=== PATIENT | female | born 1960 | race Caucasian/White ===

== ENCOUNTER 2017-03-03 09:47 | Outpatient (CLI) ==
[2015-11-19 19:34] VITALS: BMI 27.4
[2017-03-03 10:24] LABS: CREATININE 0.66 mg/dL (0.60-1.30)
--- NOTE | 2017-03-03 11:59 | CT ---
EXAM: CT of the abdomen and pelvis without and with IV contrast. HISTORY: Hematuria COMPARISON: 04/07/2015 TECHNIQUE: CT of the abdomen and pelvis without and with IV contrast. Oral contrast was also admini stered. 3-D and MIP reformats were obtained. FINDINGS: No renal, ureteral or bladder calculi are identified. Numerous phleboliths are seen. Both kidneys enhance normally. No renal masses are visualized. No hydronephrosis is seen. A porti on of the proximal right and distal left ureter do not opacify well with contrast, likely secondary to timing. No gross ureteral wall thickening or dilation is visualized. No bladder mass is seen. The liver enhances normally. Gallbladder has been removed. The spleen, adrenals, kidneys and pancr eas enhance normally. The diverticulum of the second portion of the duodenum. No abnormal small bowel dilation is seen. Th e colon is within normal limits. The appendix is not identified. The uterus has been removed. No free air or free fluid is seen. No lymphadenopathy is identified. There is atherosclerotic plaque of the aorta and its branches. There is moderate to severe L5-S1 de generative disc disease with vacuum phenomenon. IMPRESSION: No evidence of urolithiasis. No bladder or renal masses identified. No acute intra-abdominal findings. Status post cholecystectomy and hysterectomy. Atherosclerosis.
== END 2017-03-03 09:48 | disposition home or self-care (01) ==
LOC: RAD 09:47
PROVIDERS: ATTEND Urology
DX: R31.1 Benign essential microscopic hematuria (principal)
CPT/HCPCS: 36415; 82565

== ENCOUNTER 2017-09-24 11:37 | Outpatient (CLI) ==
[2015-11-19 19:34] VITALS: BMI 27.4
== END 2017-09-24 11:38 | disposition home or self-care (01) ==
LOC: RAD 11:37
PROVIDERS: ATTEND Family Medicine
DX: Z12.31 Encounter for screening mammogram for malignant neoplasm of breast (principal)
CPT/HCPCS: 77067

== ENCOUNTER 2018-02-09 10:19 | Emergency (ER) ==
[2018-02-09 10:24] VITALS: TEMP 98.6; BMI 41.1
[2018-02-09] MEDS ORDERED: ASPIRIN CHEWABLE PO STA (10:44)
--- NOTE | 2018-02-09 11:16 | DI ---
EXAM: CHEST FRONTAL VIEW HISTORY: Chest pain. COMPARISON: 10/11/2016 FINDINGS: Heart size and mediastinum remain within normal limits. Lungs are free of infiltrate. No consolidation or pleural fluid. There is no pneumothorax or acute bony finding. IMPRESSION: Findings within normal limits.
--- NOTE | 2018-02-09 12:03 | ED.PDOC ---
General ED Provider: Dr. LISA ARELLANO Chief Complaint: Chest Pain Stated Complaint: chest pain Time Seen by Physician: 10:19 (chest pain epigastric/ central chest x 4 days) Mode of Arrival: Walk-In Information Source: Patient Exam Limitations: No limitations Primary Care Provider: DAJA AGUERO Nursing and Triage Documentation Reviewed and Agree: Yes Reviewed sepsis parameters & appropriate labs ordered?: Yes System Inflammatory Response Syndrome: Not Applicable Sepsis Protocol: For patient's 13 years and over: Temp is 96.8 and below OR 101 and greater Pulse >90 BPM Resp >20/minute Acutely Altered Mental Status Are patient's symptoms suggestive of a new infection, such as: -Pneumonia -Skin, Soft Tissue -Endocarditis -UTI -Bone, Joint Infection -Implantable Device -Acute Abdominal Infection -Wound Infection -Meningitis -Blood Stream Catheter Infection -Unknown System Inflammatory Response Syndrome: Not Applicable Cardiovascular Complaint Exam - Chest Pain Complaint/Exam Onset: Gradual Duration: 4 days Symptoms Are: Still present Timing: Intermittent Length of Chest Pain Episodes: 30 min Initial Severity: Moderate Current Severity: Mild Location: Reports: Midsternal Pain Radiates: Reports: Neck, Epigastrium. Denies: Back, Right shoulder, Left arm, Right arm Character: Reports: Aching Aggravating: Reports: Exertion, Movement. Denies: Deep breaths Alleviating: Reports: Rest (tool 1 asprin 81 mg) Associated Signs and Symptoms: Reports: Cough. Denies: Diaphoresis, Nausea, Vomiting, Fever, Palpitations, Hemoptysis, Back pain, Abdominal pain, Dizziness , Short of air, Calf pain, Calf swelling Related History: Reports: Similar episode, Current Kj Inhibitors Related Surgical History: Reports: Cardiac Cath, PTCA/Stent History of Healthcare-Acquired Pneumonia: Reports: No AMI/ACS Risk Factors: Reports: Sedentary, Diabetes, Obesity, Hypertension, Smoking, Dyslipidemia TAD Risk Factors: Reports: Hypertension, Smoking Pulmonary Embolism Risk Factors: Reports: None Prior Care for this Complaint: Yes (stent collapsed in the prior case ) Recent Stress Test: No Recent Echo/LV Function: No JVD Present: No Subcutaneous Emphysema Present: No Diminshed Breath Sounds: No Reproducible Chest Wall Pain: No Bilateral Pulses Present: No If Risk Factors for AMI/ACS Consider: EKG, Cardiac Enzymes, Aspirin Differential Diagnoses: Acute IA, ACS, Stable Angina, Lower Resp. Infection Quality Indicators For Acute IA or Cardiac Chest Pain: EKG in 10min. Quality Indicator For Non-Traumatic Chest Pain/Syncope: EKG Performed Patient Advised to Stop Smoking: Yes Review of Systems - Review Of Systems Constitutional: Reports: Malaise Eyes: Reports: No symptoms Ears, Nose, Mouth, Throat: Reports: No symptoms Respiratory: Reports: Cough Cardiac: Reports: Chest pain GI: Reports: No symptoms : Reports: No symptoms Musculoskeletal: Reports: No symptoms Skin: Reports: No symptoms Neurological: Reports: No symptoms Endocrine: Reports: No symptoms Hematologic/Lymphatic: Reports: No symptoms All Other Systems: Reviewed and Negative Past Medical History - Past Medical History Previously Healthy: Yes Endocrine: Reports: DM 2, Hypothyroid, Dyslipidemia Cardiovascular: Reports: CAD, Hypertension Respiratory: Reports: COPD Hematological: Reports: None Gastrointestinal: Reports: Liver Genitourinary: Reports: None Neuro/Psych: Reports: Anxiety, Depression Musculoskeletal: Reports: None Cancer: Reports: None Last Menstrual Period: NONE - Surgical History General Surgical History: Reports: Hysterectomy, Cholecystectomy - Family History Family History: Reports: Unknown - Social History Smoking Status: Current some day smoker, Light tobacco smoker Hx Substance Use: No Alcohol Screening: None Physical Exam - Physical Exam Appearance: Well-appearing Eyes: BABAK, EOMI, Conjunctiva clear ENT: Ears normal, Nose normal, Oropharynx normal Respiratory: Rhonchi Cardiovascular: RRR, Pulses normal, No rub, No murmur GI/: Soft, Nontender, No masses, Bowel sounds normal, No Organomegaly Musculoskeletal: Normal strength, ROM intact, No edema, No calf tenderness Skin: Warm, Dry, Normal color Neurological: Sensation intact, Motor intact, Reflexes intact, Cranial nerves intact, Alert, Oriented Psychiatric: Affect appropriate, Mood appropriate Interpretation - Radiology Interpretation Radiology Interpretation By: Radiologist Radiology Results: Negative Exam Interpreted: 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0 L Lymphocytes % (Manual) 45.0 Monocytes % (Manual) 6.0 Eosinophils % (Manual) 3.0 Anisocytosis Not present PT 9.6 INR 0.96 APTT 24.7 Sodium 138 Potassium 4.4 Chloride 103 Carbon Dioxide 22 Anion Gap 17.4 BUN 15 Creatinine 0.68 Estimated GFR (MDRD) 89.00 BUN/Creatinine Ratio 22.05 Glucose 151 H Calcium 9.4 Total Bilirubin 0.4 AST 18 ALT 25 Alkaline Phosphatase 103 H Total Creatine Kinase 75 Troponin I 0.0140 Total Protein 6.8 Albumin 3.4 Globulin 3.4 Albumin/Globulin Ratio 1.00 Orders Category Date Time Status EKG-(ED ONLY) Stat CARDIO 02/09/18 10:44 Completed EKG-(ED ONLY) Stat CARDIO 02/09/18 11:50 Completed CBC W/ AUTO DIFF Stat LAB 02/09/18 10:40 Completed COMPREHENSIVE METABOLIC PANEL Stat LAB 02/09/18 10:40 Completed CREATINE KINASE Stat LAB 02/09/18 10:40 Completed MANUAL DIFFERENTIAL Stat LAB 02/09/18 10:40 Completed PARTIAL THROMBOPLASTIN TIME Stat LAB 02/09/18 10:40 Completed PT WITH INR Stat LAB 02/09/18 10:40 Completed TROPONIN I Stat LAB 02/09/18 10:40 Completed 0.9 % Sodium Chloride [Saline Flush] MEDS 02/09/18 10:43 Active 1 syr IVF PRN PRN Aspirin [Aspirin Chewable] MEDS 02/09/18 10:44 Discontinued 243 mg PO ONCE STA CHEST, 1V AP ONLY Stat RADS 02/09/18 10:43 Completed Medications Generic Name Dose Route Start Last Admin Trade Name Freq PRN Reason Stop Dose Admin Sodium Chloride 1 syr 02/09/18 10:43 02/09/18 10:50 Saline Flush IVF 1 syr PRN PRN Administration To flush IV Discontinued Medications Generic Name Dose Route Start Last Admin Trade Name Freq PRN Reason Stop Dose Admin Aspirin 243 mg 02/09/18 10:44 02/09/18 10:51 Aspirin Chewable PO 02/09/18 10:45 243 mg ONCE STA Administration Vital Signs: Temp Pulse Resp BP Pulse Ox 02/09/18 10:19 98.6 F 86 18 127/81 92 L AIDE Risk Score AIDE Risk Score: Risk Score Odds of by 30D 0 0.1 (0.1-0.2) 1 0.3 (0.2-0.3) 2 0.4 (0.3-0.5) 3 0.7 (0.6-0.9) 4 1.2 (1.0-1.5) 5 2.2 (1.9-2.6) 6 3.0 (2.5-3.6) 7 4.8 (3.8-6.1) Departure - Departure Time of Disposition: 12:25 Disposition: TSF SHORT-TRM HOSP Discharge Problem: Chest pain Instructions: Chest Pain (ED) Condition: Good Pt referred to PMD for follow-up: Yes IPMP verified?: No Additional Instructions: Please call your Family Physician as soon as possible to schedule a follow-up appointment. Allergies/Adverse Reactions: Allergies amitriptyline Adverse Reaction (Verified 02/09/18 10:25) codeine Adverse Reaction (Verified 02/09/18 10:25) Iodinated Contrast- Oral and IV Dye Adverse Reaction (Verified 02/09/18 10:25) nortriptyline Adverse Reaction (Verified 02/09/18 10:25) Home Medications: Ambulatory Orders Aspirin [Aspirin Chewable] 81 mg PO DAILYWM 10/16/14 Diazepam [Valium] 10 mg PO TID 10/16/14 Furosemide [Lasix Tab] 40 mg PO DAILY 10/16/14 Hydrocodone/Acetaminophen [Lortab 10-325 mg Tablet] 10 mg PO Q4HR 10/16/14 Potassium Chloride 10 meq PO BID 10/16/14 Trazodone HCl 150 mg PO DAILY 10/16/14 Estrogens, Conjugated [Premarin] 1.25 mg PO DAILY 04/07/15 Spironolactone 50 mg PO DAILY 04/07/15 Tizanidine HCl 2 mg PO TID 04/07/15 Albuterol Sulfate [Proair Hfa] 2 puff IH Q6H 08/21/15 Aripiprazole [Abilify] 15 mg PO DAILY 08/21/15 Budesonide/Formoterol Fumarate [Symbicort 160-4.5 Mcg Inhaler] 1 puff IH BID 10/24 Atorvastatin Calcium 80 mg PO DAILY 02/09/18 Insulin Glargine,Hum.rec.anlog [Lantus] 50 unit SUBCUT BEDTIME 02/09/18 Insulin Lispro [Humalog] See Protocol SQ ACHS 02/09/18 Linaclotide [Linzess] 145 mcg PO PRN PRN 02/09/18 Lisinopril [Zestril] 10 mg PO DAILY 02/09/18 Loratadine [Claritin] 10 mg PO DAILY 02/09/18 Modafinil [Provigil] 100 mg PO DAILY 02/09/18 Nitroglycerin [Nitrostat] 0.4 mg SL Q5MIN X 3 DOSES PRN 02/09/18 [place]-3 Acid Ethyl Esters [Lovaza] 1 gm PO DAILY 02/09/18 Ranolazine [Ranexa] 500 mg PO BID 02/09/18 Vitamin E 400 unit PO DAILY 02/09/18 Disposition Discussed With: Patient
[2018-02-09] MEDS ORDERED: ZOFRAN 4 MG/2 ML IVP STA (13:09)
[2018-02-09] MEDS ORDERED: SODIUM CHLORIDE 1,000 ML IV STA (13:09)
[2018-02-09 13:48] VITALS: BP 124/68
== END 2018-02-09 14:00 | disposition short-term general hospital (02) ==
LOC: ED 10:19
DX: R07.9 Chest pain, unspecified (principal); I10 Essential (primary) hypertension; R05 Cough; E11.9 Type 2 diabetes mellitus without complications; E03.9 Hypothyroidism, unspecified; E78.5 Hyperlipidemia, unspecified; I25.10 Atherosclerotic heart disease of native coronary artery without angina pectoris; F17.210 Nicotine dependence, cigarettes, uncomplicated; J44.9 Chronic obstructive pulmonary disease, unspecified; Z79.899 Other long term (current) drug therapy
CPT/HCPCS: 36415; 80053; 82550; 84484; 85007; 85025; 85610; 85730; 93005; 93010; 96361; 96374; 99285

== ENCOUNTER 2018-02-09 14:02 | Outpatient (CLI) ==
[2018-02-09 10:24] VITALS: BMI 41.1
== END 2018-02-09 14:03 | disposition short-term general hospital (02) ==
LOC: AMBL 14:02
PROVIDERS: ATTEND Internal Medicine
DX: R07.9 Chest pain, unspecified (principal); R11.0 Nausea

== ENCOUNTER 2021-07-16 12:14 | Observation (INO) ==
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
[2021-07-16 12:34] LABS: BASOPHILS % (AUTO) 0.4 % (0.0-3.0); EOSINOPHILS # (AUTO) 0.1 K/ul (0.0-0.7); EOSINOPHILS % (AUTO) 1.3 % (0.0-7.0); HEMATOCRIT 40.5 % (37.0-47.0); HEMOGLOBIN 13.3 g/dl (12.0-16.0); IMMATURE GRANULOCYTE % (AUTO) 0.1 % (0.0-5.0); LYMPHOCYTES # (AUTO) 2.8 K/uL (0.60-3.4); LYMPHOCYTES % (AUTO) 39.9 (10.0-50.0); MEAN CORPUSCULAR HEMOGLOBIN 32.1 pg (27.0-31.0); MEAN CORPUSCULAR HGB CONC 32.8 (31.8-35.4); MEAN CORPUSCULAR VOLUME 97.8 fl (81.0-99.0); MONOCYTES # (AUTO) 0.5 K/uL (0.4-2.0); MONOCYTES % (AUTO) 7.5 (0-10); NEUTROPHILS # (AUTO) 3.6 K/ul (2.0-6.9); NEUTROPHILS % (AUTO) 50.8 % (42.2-75.2); PLATELET COUNT 226 10^3/uL (140-440); RDW COEFFICIENT OF VARIATION 13.1 % (11.6-14.8); RED BLOOD COUNT 4.14 10^6/ul (4.20-5.40); WHITE BLOOD COUNT 7.04 K/ul (4.6-10.2)
[2021-07-16 12:47] LABS: ALANINE AMINOTRANSFERASE 16.3 U/L (0-35); ALKALINE PHOSPHATASE 59.6 U/L (53-141); ASPARTATE AMINO TRANSFERASE 25.7 U/L (14-36); BLOOD UREA NITROGEN 16.1 mg/dL (7-17); CALCIUM 8.95 mg/dL (8.4-10.2); CARBON DIOXIDE 25.9 mmol/L (22-30.0); CHLORIDE 103.8 mmol/L (98-107); CREATINE KINASE 40.2 U/L (30-135); CREATININE 0.53 mg/dL (0.60-1.30); GLUCOSE 179.8 mg/dL (74-106); POTASSIUM 3.69 mmol/L (3.5-5.1); SODIUM 136.4 mmol/L (134.5-145); TOTAL PROTEIN 6.38 g/dL (6.3-8.2)
--- NOTE | 2021-07-16 12:55 | DI ---
EXAM: Chest, single view COMPARISON: Chest radiograph 02/26/2021. HISTORY: Cough and chest pain. FINDINGS: The cardiomediastinal silhouette is stable in appearance. No focal airspace consolidation , pleural effusion or pneumothorax. IMPRESSION: No acute cardiopulmonary disease.
[2021-07-16 13:01] LABS: TROPONIN I < 0.012 ng/ml (0.0000-0.120)
[2021-07-16 13:43] LABS: BORDETELLA PARAPERTUSSIS (PCR) NOT DETECTED (NOT DETECT); BORDETELLA PERTUSSIS (PCR) NOT DETECTED (NOT DETECT); CHLAMYDIA PNEUMONIAE (PCR) NOT DETECTED (NOT DETECT); CORONAVIRUS 229E (PCR) NOT DETECTED (NOT DETECT); CORONAVIRUS HKU1 (PCR) NOT DETECTED (NOT DETECT); CORONAVIRUS NL63 (PCR) NOT DETECTED (NOT DETECT); CORONAVIRUS OC43 (PCR) NOT DETECTED (NOT DETECT); HUMAN METAPNEUMOVIRUS (PCR) NOT DETECTED (NOT DETECT); HUMAN RHINOVIRUS/ENTEROV (PCR) NOT DETECTED (NOT DETECT); INFLUENZA B (PCR) NOT DETECTED (NOT DETECT); MYCOPLASMA PNEUMONIAE (PCR) NOT DETECTED (NOT DETECT); PARAINFLUENZA VIRUS 1 (PCR) NOT DETECTED (NOT DETECT); PARAINFLUENZA VIRUS 2 (PCR) NOT DETECTED (NOT DETECT); PARAINFLUENZA VIRUS 3 (PCR) NOT DETECTED (NOT DETECT); PARAINFLUENZA VIRUS 4 (PCR) NOT DETECTED (NOT DETECT); RESPIRATORY SYNCYTIAL V (PCR) NOT DETECTED (NOT DETECT)
[2021-07-16 14:39] LABS: ADENOVIRUS (PCR) NOT DETECTED (NOT DETECT)
[2021-07-16 14:42] LABS: SARS_COV_2 (PCR) NOT DETECTED (NOT DETECT)
[2021-07-16] MEDS ORDERED: ATROPINE SULFATE PFS IVP PRN (15:00)
[2021-07-16] MEDS ORDERED: TYLENOL PO PRN (15:00)
[2021-07-16] MEDS ORDERED: NITROSTAT SL PRN (15:00)
[2021-07-16] MEDS ORDERED: NORCO 10-325 PO PRN (15:03)
[2021-07-16] MEDS ORDERED: VALIUM PO PRN (15:03)
[2021-07-16] MEDS ORDERED: PROTONIX PO SCH (15:30)
[2021-07-16] MEDS ORDERED: VENTOLIN HFA (PER PUFF-WITH SPACER) IH SCH (15:30)
[2021-07-16 16:11] VITALS: BMI 38.3
[2021-07-16 17:18] LABS: CHOLESTEROL 142.2 mg/dL (0-200); HDL CHOLESTEROL 47.9 mg/dL (35-80); TRIGLYCERIDES 281.7 mg/dL (0-150)
[2021-07-16 17:19] LABS: BILIRUBIN,URINE Negative (NEGATIVE); CLARITY,URINE Clear (CLEAR); COLOR,URINE Yellow (YELLOW); GLUCOSE, URINE (UA) Negative (NEGATIVE); KETONES,URINE Negative (NEGATIVE); LEUKOCYTE ESTERASE ,URINE Negative (NEGATIVE); NITRITE,URINE Negative (NEGATIVE); PH,URINE 6.5 (5-9); PROTEIN,URINE Negative (NEGATIVE); URINE, BLOOD Trace-intact (NEGATIVE); UROBILINOGEN,URINE 0.2 (0.2)
[2021-07-16 17:26] LABS: URINE RBC, MICROSCOPIC 0-2 (0-2)
[2021-07-16] MEDS: NORCO 10-325 PO PRN (17:35)
[2021-07-16] MEDS: COZAAR PO SCH (17:41)
[2021-07-16] MEDS: VENTOLIN HFA (PER PUFF-WITH SPACER) IH SCH ×2 (17:45→23:50)
[2021-07-16 17:50] LABS: THYROID STIMULATING HORMONE 0.37 uIU/L (0.465-4.68)
[2021-07-16] MEDS: NEURONTIN PO SCH (20:18)
[2021-07-16] MEDS: RANEXA PO SCH (20:18)
[2021-07-16 20:47] LABS: CREATINE KINASE 37.1 U/L (30-135)
[2021-07-16] MEDS ORDERED: DESYREL PO PRN (21:00)
[2021-07-16 21:01] LABS: TROPONIN I < 0.012 ng/ml (0.0000-0.120)
[2021-07-17] MEDS: NORCO 10-325 PO PRN ×2 (00:03→09:13)
[2021-07-17 04:34] LABS: BASOPHILS # (AUTO) 0.1 K/uL (0-0.2); BASOPHILS % (AUTO) 0.8 % (0.0-3.0); EOSINOPHILS # (AUTO) 0.2 K/ul (0.0-0.7); EOSINOPHILS % (AUTO) 2.3 % (0.0-7.0); HEMATOCRIT 39.9 % (37.0-47.0); HEMOGLOBIN 12.9 g/dl (12.0-16.0); IMMATURE GRANULOCYTE % (AUTO) 0.2 % (0.0-5.0); LYMPHOCYTES # (AUTO) 3.3 K/uL (0.60-3.4); MEAN CORPUSCULAR HGB CONC 32.3 (31.8-35.4); MONOCYTES # (AUTO) 0.6 K/uL (0.4-2.0); MONOCYTES % (AUTO) 9.2 (0-10); NEUTROPHILS # (AUTO) 2.5 K/ul (2.0-6.9); NEUTROPHILS % (AUTO) 37.5 % (42.2-75.2); PLATELET COUNT 218 10^3/uL (140-440); RDW COEFFICIENT OF VARIATION 13.2 % (11.6-14.8); RED BLOOD COUNT 4.03 10^6/ul (4.20-5.40); WHITE BLOOD COUNT 6.54 K/ul (4.6-10.2)
[2021-07-17 04:45] LABS: ALANINE AMINOTRANSFERASE 14.9 U/L (0-35); ALBUMIN 3.71 g/dL (3.5-5.0); ALKALINE PHOSPHATASE 55.3 U/L (53-141); BILIRUBIN,TOTAL 0.33 mg/dL (0.2-1.3); BLOOD UREA NITROGEN 15.4 mg/dL (7-17); CALCIUM 8.88 mg/dL (8.4-10.2); CARBON DIOXIDE 31.6 mmol/L (22-30.0); CHLORIDE 103.9 mmol/L (98-107); CREATINE KINASE 31.9 U/L (30-135); CREATININE 0.62 mg/dL (0.60-1.30); GLUCOSE 110.6 mg/dL (74-106); POTASSIUM 4.16 mmol/L (3.5-5.1); SODIUM 139.7 mmol/L (134.5-145); TOTAL PROTEIN 5.98 g/dL (6.3-8.2)
[2021-07-17] MEDS: VENTOLIN HFA (PER PUFF-WITH SPACER) IH SCH ×2 (04:50→11:17)
[2021-07-17 04:58] LABS: TROPONIN I < 0.012 ng/ml (0.0000-0.120)
[2021-07-17] MEDS ORDERED: PROTONIX PO SCH (08:00)
[2021-07-17] MEDS ORDERED: ASPIRIN EC PO SCH (08:30)
[2021-07-17] MEDS ORDERED: PLAVIX PO SCH (09:00)
[2021-07-17] MEDS ORDERED: PROZAC PO SCH (09:00)
[2021-07-17] MEDS ORDERED: LIPITOR PO SCH (09:00)
[2021-07-17] MEDS ORDERED: LANTUS SUBCUT SCH (09:00)
[2021-07-17] MEDS: RANEXA PO SCH (09:02)
[2021-07-17] MEDS: COZAAR PO SCH (09:04)
[2021-07-17] MEDS: NEURONTIN PO SCH ×2 (09:05→14:53)
[2021-07-17] MEDS ORDERED: PHENERGAN 25 MG/ML VIAL 25 MG in SODIUM CHLORIDE 50 ML IV PRN (10:52)
[2021-07-17] MEDS ORDERED: ABILIFY PO SCH (11:00)
[2021-07-17] MEDS ORDERED: DOBUTAMINE 500 MG-D5W 250 ML 500 MG/250 ML BAG IV SCH (11:00)
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
[2021-07-17 14:14] VITALS: BP 112/70; TEMP 97.4
--- NOTE | 2021-07-19 09:22 | ECHO2D ---
Date of Exam: 07/18/2021 Ordering Physician: [facility] Room #: 103 Reason for Echo: CHEST PAIN, HTN, DM, STENTS X2 M-Mode Normal Adult Results LV Dimensions Normal Adult Results AoV Opening excursions >1.6 >1.6 LVEDD-base- 3.5-5.8 4.2 Ao root dimensions 2.0-3.7 3.6 LVESD-base- 3.1-4.6 L. Atrium dimensions 1.9-3.8 3.8 Post. Wall thickness 0.8-1.1 1.0 IV septum (thickness) 0.7-1.2 1.1 Post. Wall excursion 0.72-1.3 NORMAL Septal motion NORMAL Systolic motion R. Ventricular cavity 1.5-2.0 NORMAL LVEF 60% 58% Paradoxical septal wall motion NORMAL 2-D : 2-D M Mode Echocardiogram was performed using apical four chamber and left parasternal long and short axis views. Mitral, tricuspid and aortic valves appear to be normal. Contractility of the left ventricle seems to be normal, so is the cavity size. Left atrial cavity size and aortic root appear to be normal. There is no pericardial effusion. There is no thrombus noted in the left ventricle or left atrial cavity. M-MODE: MV: NORMAL AV: NORMAL TV: NORMAL PV: CHAMBER SIZE: NORMAL WALL MOTION: NORMAL PERICARDIUM: NORMAL INTERPRETATION: 1. NORMAL 2 "D" "M" MODE ECHO MTDD
--- NOTE | 2021-07-19 09:35 | DOBSTECHO ---
Date of Test: 07/17/2021 Ordering Physician: HOSPITALIST/KAI AGUERO Smoking History: 40 PK/YRS Reason for Examination: CHEST PAIN, DM, HTN, STENTS X 2 Current Medications: LIRAGLUTIDE, TRAZODONE, TIZANIDINE, RANEXA, PANTOPRAZOLE, LOSARTAN, LINACLOTIDE, LISPRO, GABAPENTIN, FLUOXETINE, FENOFIBRATE, DIAZEPAM, PREMARIN, CLOPIDOGREL, ATORVASTATIN, ASA, ARIPIPRAZOLE, PROAIR Height: 62" Weight: 208 LBS Target Heart Rate: 136/160 S-T Segment Stage Time HR BPM BP MMHG Rhythm +/- Elevation Depression Symptoms Control Sitting 72 102/54 SR X NONE Dobutamine 250mg/D5W 5mcg/KG/mn 10mcg/KG/mn 3" 78 110/56 SR X NONE 15mcg/KG/mn 2" 76 114/56 SR X NONE 20mcg/KG/mn 2" 75 112/56 SR X NONE 25mcg/KG/mn 2" 82 SR X .25 ATROPINE 30mcg/KG/mn 2" 102 186/54 SR X 35mcg/KG/mn 2" 114 188/60 SR X NONE 40mcg/KG/mn 1:49 125 SR X NONE 4" MIN POST INFUSION 112 168/70 SR X NONE 10" MIN POST INFUSION 98 118/60 SR X NONE DURATION OF INFUSION 14:49 MAXIMUM HEART RATE REACHED 125 BPM Interpretation: 1. NO EVIDENCE OF ISCHEMIA BY ST-T WAVE CHANGES FROM RESTING HEART RATE 75 BPM TO 125 BPM 2. NO CHEST PAIN OR DISCOMFORT 3. FEW ISOLATED PAC'S WITH DOBUTAMINE INFUSION NORMAL LEFT VENTRICLE CONTRACTILITY RESTING AND POST EXERCISE MTDD
--- NOTE | 2021-07-19 13:36 | ECHOSTRESS ---
Date of Exam: 07/17/2021 Ordering Physician: [facility] Reason for Echo: CHEST PAIN, HTN, DM, STENTS X 2, DOBUTAMINE STRESS TEST--NO ISCHEMIA M-Mode Normal Adult Results LV Dimensions Normal Adult Results AoV Opening excursions >1.6 LVEDD-base- 3.5-5.8 Ao root dimensions 2.0-3.7 LVESD-base- 3.1-4.6 L. Atrium dimensions 1.9-3.8 Post. Wall thickness 0.8-1.1 IV septum (thickness) 0.7-1.2 Post. Wall excursion 0.72-1.3 Septal motion Systolic motion R. Ventricular cavity 1.5-2.0 LVEF 60% Paradoxical septal wall motion 2-D: NORMAL LEFT VENTRICLE CONTRACTILITY--RESTING AND WITH DOBUTAMINE INFUSION M-MODE: MV: AV: TV: PV: CHAMBER SIZE: WALL MOTION: NORMAL LEFT VENTRICLE CONTRACTILITY--RESTING AND WITH DOBUTAMINE INFUSION PERICARDIUM: INTERPRETATION: 1. NORMAL LEFT VENTRICLE CONTRACTILITY--RESTING AND WITH DOBUTAMINE INFUSION MTDD
--- NOTE | 2021-07-20 11:49 | CONS ---
DATE OF SERVICE: 07/16/2021 REASON FOR CONSULTATION/HISTORY OF PRESENT ILLNESS: 60 year old white female seen on consultation because of chest pain. The patient was seen and examined with the Nurse Practitioner. The patient's chest pain is described as sharp shooting pain through the center of the chest 4-5 days duration. No exertional chest discomfort, no associated shortness of breath or sweating with it. He has medical history of having cardiac stent twice. The first one in [place]. According to the patient is collapsed and she had to have another one at [place]. REVIEW OF SYSTEMS: CONSTITUTIONAL: No night sweats. No fatigue, malaise, lethargy. No fever or chills. HEENT: Eyes: No visual changes. No eye pain. No eye discharge. ENT: No runny nose. No epistaxis. No sinus pain. No sore throat. No odynophagia. No ear pain. No congestion. RESPIRATORY: No cough, no congestion. No hemoptysis. CARDIOVASCULAR: No angina symptoms. No CHF symptoms. No atypical chest pain for CAD. No palpitations. No shortness of breath. GASTROINTESTINAL: No abdominal pain. No nausea or vomiting. No diarrhea or constipation. No hematemesis. No hematochezia. GENITOURINARY: No urgency. No frequency. No dysuria. No hematuria. No obstructive symptoms. No discharge. No pain. No significant abnormal bleeding. MUSCULOSKELETAL: No musculoskeletal pain. No joint swelling. No arthritis. NEUROLOGICAL: No headache. No neck pain. No syncope. No seizures. No dizziness. PSYCHIATRIC: Not anxious. No depression. No suicidal thoughts. No homicidal thoughts. SKIN: No rash. No lesions. No wounds. ENDOCRINE: No unexplained weight loss. No weight gain. HEMATOLOGIC/LYMPHATIC: No anemia. No purpura. No petechiae. No prolonged or excessive bleeding. No palpable lymph nodes. MEDICATIONS: Albuterol Atorvastatin Clopidogrel Losartan and a lot of other anxiety medications. ALLERGIES: Amitriptyline Amlodipine Iodinated contrast Nortriptyline PERSONAL/FAMILY/SOCIAL HISTORY : The patient is living by herself. Heavy smoker. PAST MEDICAL/PAST SURGICAL HISTORY: Diabetes Mellitus Morbid obesity Hypertension Dyslipidemia Depression with anxiety syndrome PHYSICAL EXAMINATION: GENERAL: The patient is oriented to time, place and person. VITAL SIGNS: Temperature 97.8, pulse 76, respiratory rate 18, blood pressure 112/65 and pulse ox 94% on room air. HEENT: Head normocephalic, atraumatic. Eyes: Extraocular muscles are intact. Pupils are equal, round and reactive to light and accommodation. Ears: No lesions. Nose appeared normal. Throat: No exudate or erythema. NECK: Supple. No JVD, no carotid bruit. No lymphadenopathy or thyromegaly. LUNGS: Clear to auscultation. Percussion note normal. Chest symmetrical. HEART: S1, S2, no S3. No murmur. No cyanosis or clubbing. No ascites. Pulses: Dorsalis pedis and posterior tibial pulses +1 to +2 bilaterally. ABDOMEN: Soft. Nontender. Bowel sounds active. No CVA tenderness. No mass felt. EXTREMITIES: No edema. Full range of motion of all extremities, equal. NEUROLOGIC: No focal deficit. Cranial nerves II through XII are grossly intact. No headache, no double vision or headache. SKIN: Not dry. Intact. Turgor - normal. LYMPHATIC: No palpable lymph nodes/no lymphedema. MUSCULOSKELETAL: Normal joints with no swelling. Muscle tone is normal. LABS: Hgb 12.9, hct 39, WBC 6,500 normal differential, creatinine 0.6, BUN 15, potassium 4.1. SARS COVID negative. T4 TSH normal. Lipid profile is acceptable. Chest x-ray CHF. EKG sinus rhythm, no acute changes. Cardiac markers negative. The patient had echocardiogram done which showed normal LV contractility, normal valves. Dobutamine stress echo heart rate of 75 to 125 per minute with Dobutamine infusion with atrophin. No ST-T wave change. The patient did not have any chest discomfort or chest pain during the tests or afterwards. LV Contractility remained normal with rest and Dobutamine infusion. ASSESSMENT: 1. Chest pain seems to be fairly atypical. No evidence of acute myocardial event. The patient had some coronary artery disease risk factors with history of coronary artery disease with stents. 2. ASHD discussed and the progression of muscular sclerosis and how to control it discussed with the patient. RECOMMENDATIONS: 1. jail recommendation followup with the notching machine operator at [facility]. 2. Followup with the Primary Care Dr. Obrien at [place] as soon as possible within next week. 3. If chest pain recurs go to the nearest emergency room. 4. BMI is 39, weight loss diet discussed. The patient refuses any bariatric referral. 5. HDL discussed the level should be 100 or less 6. Continue Atorvastatin 20mg PO daily 7. Clopidogrel 8. Losartan 9. Counseling for smoking done. 10. The patient did say that she had some reflux symptoms. Antireflux measures discussed. The patient's case discussed with Dr. Olmos. She was hospitalized today. The patient is practically stable as far as cardiovascular system is concerned. CONDITION: Stable. The patient's consult Level 5. MTDD
--- NOTE | 2021-08-26 20:50 | PCM.DC ---
Final Diagnosis: Medications at Discharge: Ambulatory Orders Medication Instructions Recorded aspirin 81 mg chewable tablet 81 mg PO DAILYWM 10/16/14 conjugated estrogens 1.25 mg 1.25 mg PO DAILY 04/07/15 tablet (Premarin) albuterol sulfate 90 mcg/actuation 2 puff INHALATION Q6H 08/21/15 aerosol inhaler (ProAir HFA) atorvastatin 80 mg tablet 80 mg PO DAILY 02/09/18 linaclotide 145 mcg capsule 145 mcg PO PRN PRN 02/09/18 (Linzess) ranolazine 500 mg tablet,extended 500 mg PO BID 02/09/18 release,12 hr (Ranexa) clopidogrel 75 mg tablet 75 mg PO QDAY 01/08/21 fenofibrate nanocrystallized 145 145 mg PO QDAY 01/08/21 mg tablet gabapentin 300 mg capsule 300 mg PO TID 01/08/21 hydrocodone 10 mg-acetaminophen 1 tab PO .COMPLEX PRN 01/08/21 325 mg tablet insulin glargine 100 unit/mL (3 30 unit SUBCUT QAM ml 01/08/21 mL) subcutaneous pen (Basaglar KwikPen U-100 Insulin) insulin lispro 100 unit/mL 8 unit SUBCUT QDAY PRN ml 01/08/21 subcutaneous pen (Admelog SoloStar U-100 Insulin lispro) liraglutide 0.6 mg/0.1 mL (18 mg/3 1.2 mg SUBCUT BEDTIME ml 01/08/21 mL) subcutaneous pen injector (Victoza 2-Lazaro) losartan 25 mg tablet 25 mg PO QDAY 01/08/21 pantoprazole 40 mg tablet,delayed 40 mg PO QDAY 01/08/21 release tizanidine 2 mg capsule 4 mg PO QHS cap 04/26/21 hydrocodone 10 mg-acetaminophen 1 tab PO 5XD PRN 07/16/21 325 mg tablet naloxone 4 mg/actuation nasal 4 mg INTRANASAL Q2M PRN #2 ea 07/17/21 spray (Narcan) promethazine 25 mg tablet 25 mg PO Q6H PRN 07/17/21 diazepam 5 mg tablet 5 mg PO QDAY PRN #30 tab 07/25/21 aripiprazole 5 mg tablet 5 mg PO QDAY #30 tab 08/22/21 fluoxetine 40 mg capsule 80 mg PO QAM #60 cap 08/22/21 trazodone 100 mg tablet 200 mg PO QHS PRN #60 tab 08/22/21
== END 2021-07-17 17:45 | disposition home or self-care (01) ==
LOC: ED 12:14 → MEDSURG A 12:14
PROVIDERS: ADMIT Internal Medicine Geriatric Medicine; ATTEND Emergency Medicine
DX: F41.9 Anxiety disorder, unspecified; E11.9 Type 2 diabetes mellitus without complications; E88.81 Metabolic syndrome and other insulin resistance; Z95.5 Presence of coronary angioplasty implant and graft; R06.02 Shortness of breath; R05 Cough; I25.10 Atherosclerotic heart disease of native coronary artery without angina pectoris; Z20.822 Contact with and (suspected) exposure to COVID-19; R07.9 Chest pain, unspecified; K21.9 Gastro-esophageal reflux disease without esophagitis; E66.9 Obesity, unspecified; F17.210 Nicotine dependence, cigarettes, uncomplicated

== ENCOUNTER 2022-01-29 16:43 | Observation (INO) ==
[2022-01-29 16:51] VITALS: BMI 40.8
[2022-01-29 18:43] LABS: BASOPHILS % (AUTO) 0.4 % (0.0-3.0); EOSINOPHILS # (AUTO) 0.1 K/ul (0.0-0.7); EOSINOPHILS % (AUTO) 1.8 % (0.0-7.0); HEMATOCRIT 40.9 % (37.0-47.0); HEMOGLOBIN 13.7 g/dl (12.0-16.0); IMMATURE GRANULOCYTE % (AUTO) 0.1 % (0.0-5.0); LYMPHOCYTES # (AUTO) 3.8 K/uL (0.60-3.4); LYMPHOCYTES % (AUTO) 48.1 (10.0-50.0); MEAN CORPUSCULAR HEMOGLOBIN 31.1 pg (27.0-31.0); MEAN CORPUSCULAR HGB CONC 33.5 (31.8-35.4); MEAN CORPUSCULAR VOLUME 92.7 fl (81.0-99.0); MONOCYTES # (AUTO) 0.7 K/uL (0.4-2.0); MONOCYTES % (AUTO) 9.4 (0-10); NEUTROPHILS # (AUTO) 3.2 K/ul (2.0-6.9); NEUTROPHILS % (AUTO) 40.2 % (42.2-75.2); PLATELET COUNT 217 10^3/uL (140-440); RDW COEFFICIENT OF VARIATION 13.2 % (11.6-14.8); RED BLOOD COUNT 4.41 10^6/ul (4.20-5.40)
[2022-01-29] MEDS ORDERED: TORADOL IM STA (18:46)
--- NOTE | 2022-01-29 18:46 | ED.PDOC ---
General <YULI NAVARRO DO - Last Filed: 01/30/22 22:33> ED Provider: Dr. YULI NAVARRO Chief Complaint: Chest Pain Stated Complaint: Lt Shoulder and chest wall pain-onset this morning. No associated SOB, Nausea or diaphoresis. Previous hx of Coronary artery Stent which collapsed and had to be replaced Time Seen by Provider: 01/29/22 19:41 Mode of Arrival: Walk-In Information Source: Patient Exam Limitations: No limitations Primary Care Provider: DAJA AGUERO Nursing and Triage Documentation Reviewed and Agree: Yes Does patient meet sepsis criteria?: No System Inflammatory Response Syndrome: Not Applicable Sepsis Protocol: For patient's 13 years and over: Temp is 96.8 and below OR 101 and greater Pulse >90 BPM Resp >20/minute Acutely Altered Mental Status Are patient's symptoms suggestive of a new infection, such as: -Pneumonia -Skin, Soft Tissue -Endocarditis -UTI -Bone, Joint Infection -Implantable Device -Acute Abdominal Infection -Wound Infection -Meningitis -Blood Stream Catheter Infection -Unknown Cardiovascular Complaint Exam <YULI NAVARRO DO - Last Filed: 01/30/22 22:33> Chest Pain Complaint/Exam Onset: Gradual Duration: 6-8 hrs Symptoms Are: Still present (But lessened) Timing: Intermittent Length of Chest Pain Episodes: 15-20 min Initial Severity: Moderate Current Severity: Mild Location: Reports Diffuse, Left anterior and Left lateral (axilla) Pain Radiates: Reports Left shoulder Character: Reports Aching and Tightness Aggravating: Reports None Alleviating: Reports Rest and Upright position Associated Signs and Symptoms: Denies Diaphoresis, Nausea, Vomiting, Fever, Palpitations, Cough, Hemoptysis, Back pain, Abdominal pain, Dizziness, Short of air, Calf pain or Calf swelling Related History: Reports Similar episode Related Surgical History: Reports None, Cardiac Cath and PTCA/Stent AMI/ACS Risk Factors: Reports None TAD Risk Factors: Reports Smoking Pulmonary Embolism Risk Factors: Reports None Prior Care for this Complaint: Yes Recent Stress Test: No Recent Echo/LV Function: No JVD Present: No Subcutaneous Emphysema Present: No Diminshed Breath Sounds: No Reproducible Chest Wall Pain: No Bilateral Pulses Present: No Unequal Pulses Noted: No If Risk Factors for AMI/ACS Consider: EKG and Cardiac Enzymes Differential Diagnoses: Unstable Angina and Chest Wall Pain Quality Indicators For Acute [place] or Cardiac Chest Pain: EKG in 10min. and ASA if indicated (Took before arriva) Review of Systems <YULI NAVARRO DO - Last Filed: 01/30/22 22:33> Review Of Systems Constitutional: Reports Malaise and Weakness; Denies Chills, Diaphoresis, Fever, Sweats or Loss of appetite Eyes: Reports No symptoms Ears, Nose, Mouth, Throat: Reports No symptoms Respiratory: Reports Cough, Short of air and Wheezing Cardiac: Reports No symptoms GI: Reports No symptoms : Reports No symptoms Musculoskeletal: Reports No symptoms Skin: Reports No symptoms Neurological: Reports Anxiety Endocrine: Reports No symptoms All Other Systems: Reviewed and Negative PFSH <YULI NAVARRO DO - Last Filed: 01/30/22 22:33> Medical History Anxiety Asthma Borderline personality disorder Complicated grief Depression Diabetes Generalized anxiety disorder Hypertension Major depressive disorder, recurrent severe without psychotic features Memory deficit Neurocognitive disorder Panic attacks PTSD (post-traumatic stress disorder) Radicular pain of upper extremity Tobacco dependence Family History Mother Cancer Diabetes Alcoholism FATHER Heart attack Alcoholism BROTHER Brain injury Heart attack BROTHER Overdose BROTHER Hepatitis C BROTHER Hepatitis C SISTER Heart attack Social History Smoking and tobacco status: Current every day smoker Tobacco type: cigarettes Smoking packs per day: 1 Years smoked: 50 Quit status: has quit before Alcohol intake: never Substance use type: does not use Kenzie/sabianist: NONDENOMINATIONAL Special kenzie needs: No Agree to transfusion: Yes Adopted: No Caregiver/support person: No Household members: none Housing: house Marital status: D Lives independently: Yes Number of children: 5 Number of grandchildren: 12 Highest education level completed: 3rd grade Financial difficulty paying for basics: not very hard service: No FCI: No Current occupational status: disabled Current occupational exposures/hazards: No Pets and animals: Yes (dog ) History of recent travel: No Sexually active: No Do you think of yourself as: straight/heterosexual Current gender identity: female Seatbelt use: always Drives intoxicated or rides with intoxicated armor reconnaissance vehicle driver: No Water heater temperature set < 120 degrees: Yes Working smoke detector in home: Yes Fire extinguisher in home: Yes Carbon monoxide detector in home: Yes Firearms in home: No Surgical History H/O heart artery stent Female Reproductive History Menstrual Hx Hysterectomy: Yes Hx Tubal Ligation: No Physical Exam <YULI NAVARRO DO - Last Filed: 01/30/22 22:33> Physical Exam Appearance: Reports Well-appearing and Obese Ill-appearing: Mild Pain Distress: Mild Eyes: Reports BABAK, EOMI, Conjunctiva clear, Conjunctiva pale and Right pupil size (PERL_A) ENT: Reports Ears normal, Oropharynx normal and TMs Occluded Neck: Supple Respiratory: Reports Airway patent, Breath sounds diminished and Wheezes Cardiovascular: Reports RRR and No murmur GI/: Reports Soft, Nontender and No masses Musculoskeletal: Reports Normal strength, ROM intact, No edema, No calf tenderness and Other (tenderness Lt axilla superior shoulder AND ACROMIO CLAVICUAR JOINT) Skin: Reports Warm, Dry and Normal color Neurological: Reports Sensation intact, Motor intact, Reflexes intact, Cranial nerves intact, Alert and Oriented Psychiatric: Reports Affect appropriate and Mood appropriate Interpretation <DO Kaykay NEAL Last Filed: 01/30/22 22:33> Radiology Interpretation Exam Interpreted: Portable CXR ( No acute intrathoracic findings. Minimal left basilar atelectasis or scarring.) EKG Interpretation Time of EKG #1: 17:07 Rate: Normal Rhythm: Sinus Ectopy: None [place]: NL ST Segment: Normal Interpretation: nsr <BAHI DOWLING MD - Last Filed: 01/29/22 19:57> Radiology Interpretation Radiology Interpretation By: Radiologist Radiology Results: Negative Re-Evaluation <YULI NAVARRO DO - Last Filed: 01/30/22 22:33> Re-Evaluation Time of Re-Evaluation: 18:50 Status: Improved Vital Signs Stable: Yes <ABHI DOWLING MD - Last Filed: 01/29/22 19:57> Re-Evaluation Time of Re-Evaluation: 19:54 Status: Improved Vital Signs Stable: Yes (bp 109) Pain Level: mild Appearance: NAD Physician Notification <DO Kaykay NEAL Last Filed: 01/30/22 22:33> Case Discussed Physician Notified: Dr Dowling Time of Notification: 19:10 Comments: Discussed case regarding admission vs possible transfer <ABHI DOWLING MD - Last Filed: 01/29/22 19:57> Critical Care Note Total Critical Care Time (mins): 0 Course <YULI NAVARRO DO - Last Filed: 01/30/22 22:33> Course Hematology/Chemistry: 01/30/22 02:05 01/30/22 02:05 Orders, Labs, Meds: Lab Review 01/29/22 01/29/22 01/29/22 18:35 18:35 19:35 WBC 7.90 RBC 4.41 Hgb 13.7 Hct 40.9 MCV 92.7 MCH 31.1 H MCHC 33.5 RDW Coeff of Wilson 13.2 Plt Count 217 Immature Gran % (Auto) 0.1 Neut % (Auto) 40.2 L Lymph % (Auto) 48.1 [place] % (Auto) 9.4 Eos % (Auto) 1.8 Baso % (Auto) 0.4 Neut # (Auto) 3.2 Lymph # (Auto) 3.8 H [place] # (Auto) 0.7 Eos # (Auto) 0.1 Baso # (Auto) 0.0 Immature Gran # (Auto) 0.0 Sodium 137.0 Potassium 3.89 Chloride 104.5 Carbon Dioxide 28.8 Anion Gap 7.59 BUN 20.2 H Creatinine 0.53 L Estimated GFR (MDRD) 117.00 BUN/Creatinine Ratio 38.11 Glucose 163.6 H Calcium 9.05 Total Bilirubin 0.29 AST 24.6 ALT 15.0 Alkaline Phosphatase 76.4 Troponin I < 0.012 Total Protein 6.40 Albumin 3.83 Globulin 2.57 Albumin/Globulin Ratio 1.49 Adenovirus (PCR) Not detected B. pertussis DNA (PCR) Not detected B.parapertussis DNA PCR Not detected C. pneumoniae DNA (PCR) Not detected Coronavirus OC43 (PCR) Not detected Coronavirus HKU1 (PCR) Not detected Coronavirus 229E (PCR) Not detected Coronavirus NL63 (PCR) Not detected Human Metapneumovir PCR Not detected Influenza Type A (PCR) Not detected Influenza B (RT-PCR) Not detected M. pneumoniae (PCR) Not detected Parainfluenza 1 (PCR) Not detected Parainfluenza 2 (PCR) Not detected Parainfluenza 3 (PCR) Not detected Parainfluenza 4 (PCR) Not detected RSV (PCR) Not detected Entero/Rhino (PCR) Not detected SARS-CoV-2 (PCR) Not detected Orders Category Date Time Status PLACE PATIENT OBSERVATION .TO MEDSURG (MONITORED BED ADMISSION 01/29/22 19:57 Completed ) EKG-(ED ONLY) Stat CARDIO 01/29/22 18:24 Completed EKG-(IP & OP ONLY) Stat CARDIO 01/30/22 06:00 Completed METERED DOSE INHALATION Routine CARDIO 01/29/22 20:07 Active ACTIVITY .Up ad Nicole CARE 01/29/22 19:59 Completed BLOOD GLUCOSE MONITORING (MED/SURG) 0630,1100,1700,2100 CARE 01/29/22 20:00 Completed INTAKE & OUTPUT Q8HR CARE 01/29/22 19:58 Completed NOTIFY PHYSICIAN OF CONSULT ONCE CARE 01/29/22 20:03 Completed TELEMETRY MONITORING TELE CARE 01/29/22 19:58 Completed VITAL SIGNS Q4HR CARE 01/29/22 19:58 Completed CONSULT DOCTOR [PHYSICIAN CONSULTATION] [CONS] Routine CONSULTS 01/29/22 20:02 Ordered CARDIAC DIET DIETARY 01/29/22 Breakfast Completed ED IV/MEDIPORT/POWERPORT .ONCE EMERGENCY 01/29/22 19:41 Completed CBC W/ AUTO DIFF DAILY@0600 LAB 01/30/22 02:05 Completed CBC W/ AUTO DIFF Stat LAB 01/29/22 18:35 Completed CMP [COMPREHENSIVE METABOLIC PANEL] Stat LAB 01/29/22 18:35 Completed CREATINE KINASE Q8H LAB 01/30/22 02:05 Completed CREATINE KINASE Q8H LAB 01/30/22 10:04 Completed RESPIRATORY PANEL 2.1 (PCR) Stat LAB 01/29/22 19:35 Completed TROPONIN I Q8H LAB 01/30/22 02:05 Completed TROPONIN I Q8H LAB 01/30/22 10:04 Completed TROPONIN I Stat LAB 01/29/22 18:35 Completed 0.9 % Sodium Chloride [Saline Flush] MEDS 01/29/22 19:41 Discontinued 1 syr IVF PRN PRN Acetaminophen [Tylenol] MEDS 01/29/22 19:57 Discontinued 650 mg PO Q4H PRN Albuterol Inhaler(with Spacer) [Ventolin Hfa (Per Puff- MEDS 01/29/22 20:05 Discontinued with Spacer)] 2 puff IH Q6H PRN Aripiprazole [Abilify] MEDS 01/29/22 20:30 Discontinued 5 mg PO DAILY Aspirin [Aspirin Chewable] MEDS 01/30/22 08:30 Discontinued 81 mg PO DAILYWM Atorvastatin Calcium [Lipitor] MEDS 01/30/22 09:00 Discontinued 80 mg PO DAILY Clopidogrel Bisulfate [Plavix] MEDS 01/29/22 20:30 Discontinued 75 mg PO DAILY Diazepam [Valium] MEDS 01/29/22 20:05 Discontinued 10 mg PO DAILY PRN Enoxaparin Sodium [Lovenox] MEDS 01/30/22 09:00 Discontinued 40 mg SUBCUT DAILY Fenofibrate [Triglide] MEDS 01/30/22 09:00 Discontinued 160 mg PO DAILY Fluoxetine HCl [Prozac] MEDS 01/30/22 09:00 Discontinued 80 mg PO QAM Gabapentin [Neurontin] MEDS 01/29/22 21:00 Discontinued 300 mg PO TID Insulin Regular, Human [Humulin R] MEDS 01/29/22 19:57 Discontinued See Protocol SUBCUT PRN PRN Ketorolac Tromethamine [Toradol] MEDS 01/29/22 18:46 Discontinued 30 mg IM ONCE STA Losartan Potassium [Cozaar] MEDS 01/29/22 20:30 Discontinued 25 mg PO DAILY Magnesium Oxide [Mag-Ox] MEDS 01/30/22 09:00 Discontinued 400 mg PO DAILY Morphine Sulfate [Morphine 2 mg/ml Vial] MEDS 01/29/22 19:57 Discontinued 2 mg IVP Q4H PRN Ondansetron HCl/Pf [Zofran 4 mg/2 ml] MEDS 01/29/22 19:57 Discontinued 4 mg IVP Q6H PRN Oxycodone HCl [Oxycodone] MEDS 01/29/22 20:05 Discontinued 10 mg PO Q4H PRN Pantoprazole Sodium [Protonix] MEDS 01/30/22 09:00 Discontinued 40 mg PO DAILY Ranolazine [Ranexa] MEDS 01/29/22 21:00 Discontinued 500 mg PO BID Tizanidine HCl [Zanaflex] MEDS 01/29/22 22:01 Discontinued 4 mg PO BEDTIME Trazodone HCl [Desyrel] MEDS 01/30/22 21:00 Discontinued 300 mg PO BEDTIME PRN conjugated estrogens [Premarin] MEDS 01/30/22 09:00 Discontinued 1.25 mg PO DAILY insulin lispro [Admelog SoloStar U-100 Insulin] MEDS 01/29/22 21:00 Discontinued 10 unit SUBCUT TID liraglutide [Victoza 2-Lazaro] MEDS 01/29/22 21:00 Discontinued 1.2 mg SUBCUT BEDTIME RESUSCITATION STATUS Routine OTHERS 01/29/22 19:57 Completed CHEST, 1V AP ONLY Stat RADS 01/29/22 18:28 Completed Medications Discontinued Medications Generic Name Dose Route Start Last Admin Trade Name Freq PRN Reason Stop Dose Admin Acetaminophen 650 mg 01/29/22 19:57 Acetaminophen 325 Mg Tablet PO Q4H PRN Fever and Mild Pain Albuterol Sulfate 2 puff 01/29/22 20:05 Albuterol Sulfate (Ventolin Hfa) 18 Gm 1 Puff With Spacer IH Q6H PRN Dyspnea Aripiprazole 5 mg 01/29/22 20:30 01/30/22 08:12 Aripiprazole 5 Mg Tablet PO 5 mg DAILY MARIAELENA Administration Aspirin 81 mg 01/30/22 08:30 01/30/22 08:14 Aspirin 81 Mg Tab.Chew PO 81 mg DAILYWM MARIAELENA Administration Atorvastatin Calcium 80 mg 01/30/22 09:00 01/30/22 08:12 Atorvastatin Calcium 20 Mg Tablet PO 80 mg DAILY MARIAELENA Administration Atropine Sulfate 1 mg 01/30/22 12:02 01/30/22 12:42 Atropine Sulfate Inj 1 Mg/10 Ml Disp.Syrin IVP 01/30/22 12:03 Not Given ONCE ONE Clopidogrel Bisulfate 75 mg 01/29/22 20:30 01/30/22 08:13 Clopidogrel Bisulfate 75 Mg Tablet PO 75 mg DAILY MARIAELENA Administration Diazepam 10 mg 01/29/22 20:05 Diazepam 5 Mg Tablet PO DAILY PRN SPASMS Enoxaparin Sodium 40 mg 01/30/22 09:00 01/30/22 08:15 Enoxaparin Sodium 40 Mg/0.4 Ml Syr SUBCUT 40 mg DAILY MARIAELENA Administration Fenofibrate 160 mg 01/30/22 09:00 01/30/22 08:13 Fenofibrate 160 Mg Tablet PO 160 mg DAILY MARIAELENA Administration Fluoxetine HCl 80 mg 01/30/22 09:00 01/30/22 08:14 Fluoxetine Hcl 20 Mg Capsule PO 80 mg QAM MARIAELENA Administration Gabapentin 300 mg 01/29/22 21:00 01/30/22 15:08 Gabapentin 300 Mg Capsule PO 300 mg TID MARIAELENA Administration Dobutamine HCl/Dextrose 500 mg in 250 mls @ 30.427 mls/hr 01/30/22 12:15 12:22 Dobutamine 500 Mg-D5w 250 Ml IV 40 mcg/kg/min TITRATION MARIAELENA 121.7 mls/hr Titration Protocol 10 MCG/KG/MIN Insulin Glargine 20 unit 01/29/22 21:45 01/29/22 22:09 Insulin Glargine,Hum.Rec.Anlog 100 Units/Ml SUBCUT 20 unit BEDTIME MARIAELENA Administration Insulin Human Regular 0 unit 01/29/22 19:57 Insulin Regular, Human 100 Unit/Ml (3ml) Vial SUBCUT PRN PRN Hyperglycemia Protocol Ketorolac Tromethamine 30 mg 01/29/22 18:46 01/29/22 18:52 Ketorolac Tromethamine 30 Mg/Ml Vial IM 01/29/22 18:47 30 mg ONCE STA Administration Losartan Potassium 25 mg 01/29/22 20:30 01/30/22 08:13 Losartan Potassium 25 Mg Tablet PO 25 mg DAILY MARIAELENA Administration Magnesium Oxide 400 mg 01/30/22 09:00 01/30/22 08:12 Magnesium Oxide 400 Mg Tablet PO 400 mg DAILY MARIAELENA Administration Morphine Sulfate 2 mg 01/29/22 19:57 Morphine Sulfate 2 Mg/Ml Vial IVP Q4H PRN Severe Pain Non-Formulary Medication 1.25 mg 01/30/22 09:00 01/30/22 09:30 Conjugated Estrogens [Premarin] PO 1.25 mg DAILY MARIAELENA Administration Non-Formulary Medication 10 unit 01/29/22 21:00 01/29/22 21:52 Insulin Lispro [Admelog Solostar U-100 Insulin] SUBCUT Not Given TID [facility] Non-Formulary Medication 1.2 mg 01/29/22 21:00 01/29/22 21:52 Liraglutide [Victoza 2-Lazaro] SUBCUT Not Given BEDTIME [facility] Non-Formulary Medication 10 unit 01/30/22 08:30 Insulin Lispro [Admelog Solostar U-100 Insulin] SUBCUT TIDWM [facility] Non-Formulary Medication 1.2 mg 01/30/22 21:00 Liraglutide [Victoza 2-Lazaro] SUBCUT BEDTIME MARIAELENA Non-Formulary Medication 20 unit 01/30/22 21:00 Insulin Glargine [Basaglar Kwikpen U-100 Insulin] SUBCUT BEDTIME MARIAELENA Non-Formulary Medication 30 unit 01/31/22 09:00 Insulin Glargine [Basaglar Kwikpen U-100 Insulin] SUBCUT DAILY MARIAELENA Non-Formulary Medication 10 unit 01/30/22 08:30 01/30/22 13:00 Insulin Lispro [Admelog Solostar U-100 Insulin] SUBCUT 10 unit TIDWM MARIAELENA Administration Ondansetron HCl 4 mg 01/29/22 19:57 Ondansetron Hcl/Pf 4 Mg/2 Ml Sdv IVP Q6H PRN Nausea / Vomiting Oxycodone HCl 10 mg 01/29/22 20:05 01/30/22 15:11 Oxycodone Hcl 5 Mg Tablet PO 10 mg Q4H PRN Administration moderate pain Pantoprazole Sodium 40 mg 01/30/22 09:00 01/30/22 08:15 Pantoprazole Sodium 40 Mg Tablet. PO 40 mg DAILY MARIAELENA Administration Pantoprazole Sodium 40 mg 01/31/22 06:30 Pantoprazole Sodium 40 Mg Tablet. PO QDAC MARIAELENA Ranolazine 500 mg 01/29/22 21:00 01/30/22 08:12 Ranolazine 500 Mg Tab.Er.12h PO 500 mg BID MARIAELENA Administration Sodium Chloride 1 syr 01/29/22 19:41 0.9% Sodium Chloride 10 Ml Disp.Syrin IVF PRN PRN To flush IV Sodium Chloride 1 syr 01/30/22 05:00 01/30/22 13:00 0.9% Sodium Chloride 10 Ml Disp.Syrin IVF 1 syr Q8HR MARIAELENA Administration Tizanidine HCl 4 mg 01/29/22 22:01 01/29/22 22:08 Tizanidine Hcl 4 Mg Tablet PO 4 mg BEDTIME MARIAELENA Administration Trazodone HCl 300 mg 01/30/22 21:00 Trazodone Hcl 50 Mg Tablet PO BEDTIME PRN Insomnia Trazodone HCl 300 mg 01/29/22 22:02 01/29/22 22:09 Trazodone Hcl 50 Mg Tablet PO 300 mg BEDTIME PRN Administration Insomnia Vital Signs: Temp Pulse Resp BP Pulse Ox 01/29/22 16:43 98.8 F 84 16 141/73 H 92 L <ABHI DOWLING MD - Last Filed: 01/29/22 19:57> Course Orders, Labs, Meds: Lab Review 01/29/22 01/29/22 01/29/22 18:35 18:35 19:35 WBC 7.90 RBC 4.41 Hgb 13.7 Hct 40.9 MCV 92.7 MCH 31.1 H MCHC 33.5 RDW Coeff of Wilson 13.2 Plt Count 217 Immature Gran % (Auto) 0.1 Neut % (Auto) 40.2 L Lymph % (Auto) 48.1 [place] % (Auto) 9.4 Eos % (Auto) 1.8 Baso % (Auto) 0.4 Neut # (Auto) 3.2 Lymph # (Auto) 3.8 H [place] # (Auto) 0.7 Eos # (Auto) 0.1 Baso # (Auto) 0.0 Immature Gran # (Auto) 0.0 Sodium 137.0 Potassium 3.89 Chloride 104.5 Carbon Dioxide 28.8 Anion Gap 7.59 BUN 20.2 H Creatinine 0.53 L Estimated GFR (MDRD) 117.00 BUN/Creatinine Ratio 38.11 Glucose 163.6 H Calcium 9.05 Total Bilirubin 0.29 AST 24.6 ALT 15.0 Alkaline Phosphatase 76.4 Troponin I < 0.012 Total Protein 6.40 Albumin 3.83 Globulin 2.57 Albumin/Globulin Ratio 1.49 Adenovirus (PCR) Not detected B. pertussis DNA (PCR) Not detected B.parapertussis DNA PCR Not detected C. pneumoniae DNA (PCR) Not detected Coronavirus OC43 (PCR) Not detected Coronavirus HKU1 (PCR) Not detected Coronavirus 229E (PCR) Not detected Coronavirus NL63 (PCR) Not detected Human Metapneumovir PCR Not detected Influenza Type A (PCR) Not detected Influenza B (RT-PCR) Not detected M. pneumoniae (PCR) Not detected Parainfluenza 1 (PCR) Not detected Parainfluenza 2 (PCR) Not detected Parainfluenza 3 (PCR) Not detected Parainfluenza 4 (PCR) Not detected RSV (PCR) Not detected Entero/Rhino (PCR) Not detected SARS-CoV-2 (PCR) Not detected Orders Category Date Time Status PLACE PATIENT OBSERVATION .TO MEDSURG (MONITORED BED ADMISSION 01/29/22 19:57 Completed ) EKG-(ED ONLY) Stat CARDIO 01/29/22 18:24 Completed EKG-(IP & OP ONLY) Stat CARDIO 01/30/22 06:00 Completed METERED DOSE INHALATION Routine CARDIO 01/29/22 20:07 Active ACTIVITY .Up ad Nicole CARE 01/29/22 19:59 Completed BLOOD GLUCOSE MONITORING (MED/SURG) 0630,1100,1700,2100 CARE 01/29/22 20:00 Completed INTAKE & OUTPUT Q8HR CARE 01/29/22 19:58 Completed NOTIFY PHYSICIAN OF CONSULT ONCE CARE 01/29/22 20:03 Completed TELEMETRY MONITORING TELE CARE 01/29/22 19:58 Completed VITAL SIGNS Q4HR CARE 01/29/22 19:58 Completed CONSULT DOCTOR [PHYSICIAN CONSULTATION] [CONS] Routine CONSULTS 01/29/22 20:02 Ordered CARDIAC DIET DIETARY 01/29/22 Breakfast Completed ED IV/MEDIPORT/POWERPORT .ONCE EMERGENCY 01/29/22 19:41 Completed CBC W/ AUTO DIFF DAILY@0600 LAB 01/30/22 02:05 Completed CBC W/ AUTO DIFF Stat LAB 01/29/22 18:35 Completed CMP [COMPREHENSIVE METABOLIC PANEL] Stat LAB 01/29/22 18:35 Completed CREATINE KINASE Q8H LAB 01/30/22 02:05 Completed CREATINE KINASE Q8H LAB 01/30/22 10:04 Completed RESPIRATORY PANEL 2.1 (PCR) Stat LAB 01/29/22 19:35 Completed TROPONIN I Q8H LAB 01/30/22 02:05 Completed TROPONIN I Q8H LAB 01/30/22 10:04 Completed TROPONIN I Stat LAB 01/29/22 18:35 Completed 0.9 % Sodium Chloride [Saline Flush] MEDS 01/29/22 19:41 Discontinued 1 syr IVF PRN PRN Acetaminophen [Tylenol] MEDS 01/29/22 19:57 Discontinued 650 mg PO Q4H PRN Albuterol Inhaler(with Spacer) [Ventolin Hfa (Per Puff- MEDS 01/29/22 20:05 Discontinued with Spacer)] 2 puff IH Q6H PRN Aripiprazole [Abilify] MEDS 01/29/22 20:30 Discontinued 5 mg PO DAILY Aspirin [Aspirin Chewable] MEDS 01/30/22 08:30 Discontinued 81 mg PO DAILYWM Atorvastatin Calcium [Lipitor] MEDS 01/30/22 09:00 Discontinued 80 mg PO DAILY Clopidogrel Bisulfate [Plavix] MEDS 01/29/22 20:30 Discontinued 75 mg PO DAILY Diazepam [Valium] MEDS 01/29/22 20:05 Discontinued 10 mg PO DAILY PRN Enoxaparin Sodium [Lovenox] MEDS 01/30/22 09:00 Discontinued 40 mg SUBCUT DAILY Fenofibrate [Triglide] MEDS 01/30/22 09:00 Discontinued 160 mg PO DAILY Fluoxetine HCl [Prozac] MEDS 01/30/22 09:00 Discontinued 80 mg PO QAM Gabapentin [Neurontin] MEDS 01/29/22 21:00 Discontinued 300 mg PO TID Insulin Regular, Human [Humulin R] MEDS 01/29/22 19:57 Discontinued See Protocol SUBCUT PRN PRN Ketorolac Tromethamine [Toradol] MEDS 01/29/22 18:46 Discontinued 30 mg IM ONCE STA Losartan Potassium [Cozaar] MEDS 01/29/22 20:30 Discontinued 25 mg PO DAILY Magnesium Oxide [Mag-Ox] MEDS 01/30/22 09:00 Discontinued 400 mg PO DAILY Morphine Sulfate [Morphine 2 mg/ml Vial] MEDS 01/29/22 19:57 Discontinued 2 mg IVP Q4H PRN Ondansetron HCl/Pf [Zofran 4 mg/2 ml] MEDS 01/29/22 19:57 Discontinued 4 mg IVP Q6H PRN Oxycodone HCl [Oxycodone] MEDS 01/29/22 20:05 Discontinued 10 mg PO Q4H PRN Pantoprazole Sodium [Protonix] MEDS 01/30/22 09:00 Discontinued 40 mg PO DAILY Ranolazine [Ranexa] MEDS 01/29/22 21:00 Discontinued 500 mg PO BID Tizanidine HCl [Zanaflex] MEDS 01/29/22 22:01 Discontinued 4 mg PO BEDTIME Trazodone HCl [Desyrel] MEDS 01/30/22 21:00 Discontinued 300 mg PO BEDTIME PRN conjugated estrogens [Premarin] MEDS 01/30/22 09:00 Discontinued 1.25 mg PO DAILY insulin lispro [Admelog SoloStar U-100 Insulin] MEDS 01/29/22 21:00 Discontinued 10 unit SUBCUT TID liraglutide [Victoza 2-Lazaro] MEDS 01/29/22 21:00 Discontinued 1.2 mg SUBCUT BEDTIME RESUSCITATION STATUS Routine OTHERS 01/29/22 19:57 Completed CHEST, 1V AP ONLY Stat RADS 01/29/22 18:28 Completed Medications Discontinued Medications Generic Name Dose Route Start Last Admin Trade Name Freq PRN Reason Stop Dose Admin Acetaminophen 650 mg 01/29/22 19:57 Acetaminophen 325 Mg Tablet PO Q4H PRN Fever and Mild Pain Albuterol Sulfate 2 puff 01/29/22 20:05 Albuterol Sulfate (Ventolin Hfa) 18 Gm 1 Puff With Spacer IH Q6H PRN Dyspnea Aripiprazole 5 mg 01/29/22 20:30 01/30/22 08:12 Aripiprazole 5 Mg Tablet PO 5 mg DAILY MARIAELENA Administration Aspirin 81 mg 01/30/22 08:30 01/30/22 08:14 Aspirin 81 Mg Tab.Chew PO 81 mg DAILYWM MARIAELENA Administration Atorvastatin Calcium 80 mg 01/30/22 09:00 01/30/22 08:12 Atorvastatin Calcium 20 Mg Tablet PO 80 mg DAILY MARIAELENA Administration Atropine Sulfate 1 mg 01/30/22 12:02 01/30/22 12:42 Atropine Sulfate Inj 1 Mg/10 Ml Disp.Syrin IVP 01/30/22 12:03 Not Given ONCE ONE Clopidogrel Bisulfate 75 mg 01/29/22 20:30 01/30/22 08:13 Clopidogrel Bisulfate 75 Mg Tablet PO 75 mg DAILY MARIAELENA Administration Diazepam 10 mg 01/29/22 20:05 Diazepam 5 Mg Tablet PO DAILY PRN SPASMS Enoxaparin Sodium 40 mg 01/30/22 09:00 01/30/22 08:15 Enoxaparin Sodium 40 Mg/0.4 Ml Syr SUBCUT 40 mg DAILY MARIAELENA Administration Fenofibrate 160 mg 01/30/22 09:00 01/30/22 08:13 Fenofibrate 160 Mg Tablet PO 160 mg DAILY MARIAELENA Administration Fluoxetine HCl 80 mg 01/30/22 09:00 01/30/22 08:14 Fluoxetine Hcl 20 Mg Capsule PO 80 mg QAM MARIAELENA Administration Gabapentin 300 mg 01/29/22 21:00 01/30/22 15:08 Gabapentin 300 Mg Capsule PO 300 mg TID MARIAELENA Administration Dobutamine HCl/Dextrose 500 mg in 250 mls @ 30.427 mls/hr 01/30/22 12:15 01/30/22 12:22 Dobutamine 500 Mg-D5w 250 Ml IV 40 mcg/kg/min TITRATION MARIAELENA 121.7 mls/hr Titration Protocol 10 MCG/KG/MIN Insulin Glargine 20 unit 01/29/22 21:45 01/29/22 22:09 Insulin Glargine,Hum.Rec.Anlog 100 Units/Ml SUBCUT 20 unit BEDTIME MARIAELENA Administration Insulin Human Regular 0 unit 01/29/22 19:57 Insulin Regular, Human 100 Unit/Ml (3ml) Vial SUBCUT PRN PRN Hyperglycemia Protocol Ketorolac Tromethamine 30 mg 01/29/22 18:46 01/29/22 18:52 Ketorolac Tromethamine 30 Mg/Ml Vial IM 01/29/22 18:47 30 mg ONCE STA Administration Losartan Potassium 25 mg 01/29/22 20:30 01/30/22 08:13 Losartan Potassium 25 Mg Tablet PO 25 mg DAILY MARIAELENA Administration Magnesium Oxide 400 mg 01/30/22 09:00 01/30/22 08:12 Magnesium Oxide 400 Mg Tablet PO 400 mg DAILY MARIAELENA Administration Morphine Sulfate 2 mg 01/29/22 19:57 Morphine Sulfate 2 Mg/Ml Vial IVP Q4H PRN Severe Pain Non-Formulary Medication 1.25 mg 01/30/22 09:00 01/30/22 09:30 Conjugated Estrogens [Premarin] PO 1.25 mg DAILY MARIAELENA Administration Non-Formulary Medication 10 unit 01/29/22 21:00 01/29/22 21:52 Insulin Lispro [Admelog Solostar U-100 Insulin] SUBCUT Not Given TID MARIAELENA Non-Formulary Medication 1.2 mg 01/29/22 21:00 01/29/22 21:52 Liraglutide [Victoza 2-Lazaro] SUBCUT Not Given BEDTIME MARIAELENA Non-Formulary Medication 10 unit 01/30/22 08:30 Insulin Lispro [Admelog Solostar U-100 Insulin] SUBCUT TIDWM [facility] Non-Formulary Medication 1.2 mg 01/30/22 21:00 Liraglutide [Victoza 2-Lazaro] SUBCUT BEDTIME MARIAELENA Non-Formulary Medication 20 unit 01/30/22 21:00 Insulin Glargine [Basaglar Kwikpen U-100 Insulin] SUBCUT BEDTIME MARIAELENA Non-Formulary Medication 30 unit 01/31/22 09:00 Insulin Glargine [Basaglar Kwikpen U-100 Insulin] SUBCUT DAILY MARIAELENA Non-Formulary Medication 10 unit 01/30/22 08:30 01/30/22 13:00 Insulin Lispro [Admelog Solostar U-100 Insulin] SUBCUT 10 unit TIDWM MARIAELENA Administration Ondansetron HCl 4 mg 01/29/22 19:57 Ondansetron Hcl/Pf 4 Mg/2 Ml Sdv IVP Q6H PRN Nausea / Vomiting Oxycodone HCl 10 mg 01/29/22 20:05 01/30/22 15:11 Oxycodone Hcl 5 Mg Tablet PO 10 mg Q4H PRN Administration moderate pain Pantoprazole Sodium 40 mg 01/30/22 09:00 01/30/22 08:15 Pantoprazole Sodium 40 Mg Tablet. PO 40 mg DAILY MARIAELENA Administration Pantoprazole Sodium 40 mg 01/31/22 06:30 Pantoprazole Sodium 40 Mg Tablet. PO QDAC MARIAELENA Ranolazine 500 mg 01/29/22 21:00 01/30/22 08:12 Ranolazine 500 Mg Tab.Er.12h PO 500 mg BID MARIAELENA Administration Sodium Chloride 1 syr 01/29/22 19:41 0.9% Sodium Chloride 10 Ml Disp.Syrin IVF PRN PRN To flush IV Sodium Chloride 1 syr 01/30/22 05:00 01/30/22 13:00 0.9% Sodium Chloride 10 Ml Disp.Syrin IVF 1 syr Q8HR MARIAELENA Administration Tizanidine HCl 4 mg 01/29/22 22:01 01/29/22 22:08 Tizanidine Hcl 4 Mg Tablet PO 4 mg BEDTIME MARIAELENA Administration Trazodone HCl 300 mg 01/30/22 21:00 Trazodone Hcl 50 Mg Tablet PO BEDTIME PRN Insomnia Trazodone HCl 300 mg 01/29/22 22:02 01/29/22 22:09 Trazodone Hcl 50 Mg Tablet PO 300 mg BEDTIME PRN Administration Insomnia Vital Signs: Temp Pulse Resp BP Pulse Ox 01/29/22 16:43 98.8 F 84 16 141/73 H 92 L AIDE Risk Score <YULI NAVARRO DO - Last Filed: 01/30/22 22:33> AIDE Total Score: 4 AIDE Risk Score: Risk Score Odds of by 30D 0 0.1 (0.1-0.2) 1 0.3 (0.2-0.3) 2 0.4 (0.3-0.5) 3 0.7 (0.6-0.9) 4 1.2 (1.0-1.5) 5 2.2 (1.9-2.6) 6 3.0 (2.5-3.6) 7 4.8 (3.8-6.1) <ABHI DOWLING MD - Last Filed: 01/29/22 19:57> Age >/= 65: No >/= 3 CAD Risk Factors: Yes Known CAD (Stenosis >/= 50%): Yes ASA Use in Past 7 Days: Yes Severe Angina (>/= 2 episodes in 24 hours): Yes EKG ST Changes >/= 0.5mm: No Postive Cardiac Marker: No AIDE Total Score: 4 Discharge Plan Discharge Patient Disposition: ADMITTED INPATIENT Discharge Problem: Chest pain, Acute pain of left shoulder, Chest pain ED Provider: YULI NAVARRO Condition: Stable <YULI NAVARRO DO - Last Filed: 01/30/22 22:33> Physician Progress Note: []
[2022-01-29 18:55] LABS: ALBUMIN 3.83 g/dL (3.5-5.0); ALKALINE PHOSPHATASE 76.4 U/L (53-141); ASPARTATE AMINO TRANSFERASE 24.6 U/L (14-36); BILIRUBIN,TOTAL 0.29 mg/dL (0.2-1.3); BLOOD UREA NITROGEN 20.2 mg/dL (7-17); CALCIUM 9.05 mg/dL (8.4-10.2); CARBON DIOXIDE 28.8 mmol/L (22-30.0); CHLORIDE 104.5 mmol/L (98-107); CREATININE 0.53 mg/dL (0.60-1.30); GLUCOSE 163.6 mg/dL (74-106); POTASSIUM 3.89 mmol/L (3.5-5.1)
[2022-01-29 19:06] LABS: TROPONIN I < 0.012 ng/ml (0.0000-0.120)
--- NOTE | 2022-01-29 19:07 | DI ---
Exam: Single view chest x-ray. Date: 01/29/2022. Comparison: 11/22/2021. HISTORY: Pain. FINDINGS: No acute osseous abnormality. There is minimal left basilar atelectasis or scarring. The cardiac silhouette and pulmonary vasculature are normal. Impression: No acute intrathoracic findings. Minimal left basilar atelectasis or scarring.
[2022-01-29 19:40] LABS: BORDETELLA PARAPERTUSSIS (PCR) NOT DETECTED (NOT DETECT); BORDETELLA PERTUSSIS (PCR) NOT DETECTED (NOT DETECT); CHLAMYDIA PNEUMONIAE (PCR) NOT DETECTED (NOT DETECT); CORONAVIRUS 229E (PCR) NOT DETECTED (NOT DETECT); CORONAVIRUS HKU1 (PCR) NOT DETECTED (NOT DETECT); CORONAVIRUS NL63 (PCR) NOT DETECTED (NOT DETECT); CORONAVIRUS OC43 (PCR) NOT DETECTED (NOT DETECT); HUMAN METAPNEUMOVIRUS (PCR) NOT DETECTED (NOT DETECT); HUMAN RHINOVIRUS/ENTEROV (PCR) NOT DETECTED (NOT DETECT); INFLUENZA B (PCR) NOT DETECTED (NOT DETECT); MYCOPLASMA PNEUMONIAE (PCR) NOT DETECTED (NOT DETECT); PARAINFLUENZA VIRUS 1 (PCR) NOT DETECTED (NOT DETECT); PARAINFLUENZA VIRUS 2 (PCR) NOT DETECTED (NOT DETECT); PARAINFLUENZA VIRUS 3 (PCR) NOT DETECTED (NOT DETECT); PARAINFLUENZA VIRUS 4 (PCR) NOT DETECTED (NOT DETECT); RESPIRATORY SYNCYTIAL V (PCR) NOT DETECTED (NOT DETECT); SARS_COV_2 (PCR) NOT DETECTED (NOT DETECT)
[2022-01-29] MEDS ORDERED: ZOFRAN 4 MG/2 ML IVP PRN (19:57)
[2022-01-29] MEDS ORDERED: HUMULIN R SUBCUT PRN (19:57)
[2022-01-29] MEDS ORDERED: TYLENOL PO PRN (19:57)
[2022-01-29] MEDS ORDERED: MORPHINE 2 MG/ML VIAL IVP PRN (19:57)
[2022-01-29] MEDS ORDERED: VALIUM PO PRN (20:05)
[2022-01-29] MEDS ORDERED: VENTOLIN HFA (PER PUFF-WITH SPACER) IH PRN (20:05)
[2022-01-29 20:26] LABS: ADENOVIRUS (PCR) NOT DETECTED (NOT DETECT)
[2022-01-29] MEDS ORDERED: LANTUS SUBCUT SCH (21:45)
[2022-01-29] MEDS: NEURONTIN PO SCH (21:51)
[2022-01-29] MEDS: RANEXA PO SCH (21:51)
[2022-01-29] MEDS: COZAAR PO SCH (21:51)
[2022-01-29] MEDS: PLAVIX PO SCH (21:51)
[2022-01-29] MEDS: ABILIFY PO SCH (21:51)
[2022-01-29] MEDS ORDERED: ZANAFLEX PO SCH (22:01)
[2022-01-29] MEDS ORDERED: DESYREL PO PRN (22:02)
[2022-01-30 02:23] LABS: BLOOD UREA NITROGEN 25.6 mg/dL (7-17); CALCIUM 8.76 mg/dL (8.4-10.2); CARBON DIOXIDE 29.2 mmol/L (22-30.0); CHLORIDE 104.6 mmol/L (98-107); CREATINE KINASE 46.8 U/L (30-135); CREATININE 0.64 mg/dL (0.60-1.30); GLUCOSE 199.6 mg/dL (74-106); POTASSIUM 4.19 mmol/L (3.5-5.1); SODIUM 136.6 mmol/L (134.5-145)
[2022-01-30 02:34] LABS: BASOPHILS # (AUTO) 0.1 K/uL (0-0.2); BASOPHILS % (AUTO) 0.7 % (0.0-3.0); EOSINOPHILS # (AUTO) 0.2 K/ul (0.0-0.7); EOSINOPHILS % (AUTO) 2.4 % (0.0-7.0); HEMATOCRIT 39.5 % (37.0-47.0); HEMOGLOBIN 13.1 g/dl (12.0-16.0); IMMATURE GRANULOCYTE # (AUTO) 0.1 (0.0-1.0); IMMATURE GRANULOCYTE % (AUTO) 0.7 % (0.0-5.0); LYMPHOCYTES # (AUTO) 3.6 K/uL (0.60-3.4); LYMPHOCYTES % (AUTO) 53.8 (10.0-50.0); MEAN CORPUSCULAR HEMOGLOBIN 31.4 pg (27.0-31.0); MEAN CORPUSCULAR HGB CONC 33.2 (31.8-35.4); MEAN CORPUSCULAR VOLUME 94.7 fl (81.0-99.0); MONOCYTES # (AUTO) 0.7 K/uL (0.4-2.0); MONOCYTES % (AUTO) 10.1 (0-10); NEUTROPHILS # (AUTO) 2.2 K/ul (2.0-6.9); NEUTROPHILS % (AUTO) 32.3 % (42.2-75.2); PLATELET COUNT 207 10^3/uL (140-440); RDW COEFFICIENT OF VARIATION 13.2 % (11.6-14.8); RED BLOOD COUNT 4.17 10^6/ul (4.20-5.40); WHITE BLOOD COUNT 6.71 K/ul (4.6-10.2)
[2022-01-30 02:35] LABS: TROPONIN I < 0.012 ng/ml (0.0000-0.120)
[2022-01-30 08:11] LABS: CHOLESTEROL 143.5 mg/dL (0-200); HDL CHOLESTEROL 46.5 mg/dL (35-80); TRIGLYCERIDES 362.1 mg/dL (0-150)
[2022-01-30] MEDS: ABILIFY PO SCH (08:12)
[2022-01-30] MEDS: RANEXA PO SCH (08:12)
[2022-01-30] MEDS: NEURONTIN PO SCH ×2 (08:13→15:08)
[2022-01-30] MEDS: OXYCODONE PO PRN ×2 (08:13→15:11)
[2022-01-30] MEDS: PLAVIX PO SCH (08:13)
[2022-01-30] MEDS: COZAAR PO SCH (08:13)
[2022-01-30] MEDS ORDERED: ASPIRIN CHEWABLE PO SCH (08:30)
[2022-01-30] MEDS ORDERED: HUMALOG SUBCUT SCH (08:30)
[2022-01-30] MEDS ORDERED: INSULIN LISPRO 10 UNIT SUBCUT SCH (08:30)
[2022-01-30 08:43] LABS: THYROID STIMULATING HORMONE 0.385 uIU/L (0.465-4.68)
[2022-01-30] MEDS ORDERED: CONJUGATED ESTROGENS 1.25 MG PO SCH (09:00)
[2022-01-30] MEDS ORDERED: LANTUS SUBCUT SCH (09:00)
[2022-01-30] MEDS ORDERED: PROTONIX PO SCH (09:00)
[2022-01-30] MEDS ORDERED: PROZAC PO SCH (09:00)
[2022-01-30] MEDS ORDERED: MAG-OX PO SCH (09:00)
[2022-01-30] MEDS ORDERED: TRIGLIDE PO SCH (09:00)
[2022-01-30] MEDS ORDERED: LIPITOR PO SCH (09:00)
[2022-01-30] MEDS ORDERED: LOVENOX SUBCUT SCH (09:00)
[2022-01-30] MEDS: INSULIN LISPRO 10 UNIT SUBCUT SCH ×3 (09:35→13:00)
[2022-01-30 10:23] LABS: CREATINE KINASE 40.5 U/L (30-135)
[2022-01-30 10:38] LABS: TROPONIN I < 0.012 ng/ml (0.0000-0.120)
[2022-01-30] MEDS ORDERED: ATROPINE SULFATE PFS IVP ONE (12:02)
[2022-01-30] MEDS ORDERED: DOBUTAMINE 500 MG-D5W 250 ML 500 MG/250 ML BAG IV SCH (12:15)
--- NOTE | 2022-01-30 13:45 | DOBSTECHO ---
Date of Test: 01/30/2022 Ordering Physician: HOSPITALIST-DR. LOPEZ/[facility] Smoking History: 40 PK/YRS Height: 62" Weight: 224 LBS Target Heart Rate: 135/159 Reason for Examination: SOB, CHEST PAIN Current Medications: BASAGLAR, TRAZODONE, RANEXA, PANTOPRAZOLE, LOSARTAN, LINZESS, GABAPENTIN, FLUOXETINE, FENOFIBRATE, DIAZEPAM, PREMARIN, CLOPIDEGREL, ATORVASTATIN, ASA Resting EKG: SINUS RHYTHM/ NO ACUTE CHANGES S-T Segment Stage Time HR BPM BP MMHG Rhythm +/- Elevation Depression Symptoms Control Sitting 64 110/60 SR X NONE Dobutamine 250mg/D5W 5mcg/KG/mn 10mcg/KG/mn 3" 71 118/58 SR X NONE 15mcg/KG/mn 2" 68 SR X NONE 20mcg/KG/mn 2" 75 138/65 SR X NONE 25mcg/KG/mn 2" 87 146/52 SR X NONE 30mcg/KG/mn 2" 98 SR X NONE 35mcg/KG/mn 2" 102 154/50 SR X NONE 40mcg/KG/mn 3:06 114 160/54 SR X NONE 4" MIN POST INFUSION 105 120/54 SR X NONE 7" MIN POST INFUSION 12" 94 84 SR SR X X NONE NONE DURATION OF INFUSION 16:06 MAXIMUM HEART RATE REACHED 114 BPM Interpretation: 1. NO EVIDENCE OF ISCHEMIA BY ST-T WAVE FROM RESTING HEART RATE 64 BPM TO 114 BPM WITH 40 mcg/KG/mn 2. NO CHEST PAIN OR CHEST DISCOMFORT 3. NORMAL LEFT VENTRICLE CONTRACTILITY RESTING AND WITH DOBUTAMINE INFUSION ATYPICAL CHEST PAIN WITH NORMAL EKG, TELEMETRY AND CARDIAC MARKERS, MUSCULOSKELETAL PAIN WITH LOCALIZED TENDERNESS, PRECORDIAL AREA RECOMMEND: CONTINUE ALL MEDICATIONS WITH LIPITOR 80mg PO DAILY AND BABY ASA PO DAILY, BMI >40--DIET FOR WEIGHT LOSS AND SMOKING CESSATION DISCUSSED, FOLLOW UP WITH CELIA AGUERO [facility] SCHEDULED TOMORROW (01/31/2022) [facility] CENTERShabnam
--- NOTE | 2022-01-30 13:50 | ECHO2D ---
Date of Exam: 01/30/2022 Ordering Physician: HOSPITALIST--DR. LOPEZ/KINSEY AGUERO [facility] Room #: [id number] for Echo: CHEST PAIN, CAD WITH STENT M-Mode Normal Adult Results LV Dimensions Normal Adult Results AoV Opening excursions >1.6 >1.6 LVEDD-base- 3.5-5.8 4.5 Ao root dimensions 2.0-3.7 3.1 LVESD-base- 3.1-4.6 L. Atrium dimensions 1.9-3.8 4.5 Post. Wall thickness 0.8-1.1 1.2 IV septum (thickness) 0.7-1.2 1.2 Post. Wall excursion 0.72-1.3 NORMAL Septal motion NORMAL Systolic motion R. Ventricular cavity 1.5-2.0 NORMAL LVEF 60% 57% Paradoxical septal wall motion NORMAL 2-D :2-D M Mode Echocardiogram was performed using apical four chamber and left parasternal long and short axis views. Mitral, tricuspid and aortic valves appear to be normal. Contractility of the left ventricle seems to be normal, so is the cavity size. ENLARGED LEFT ATRIAL CAVITY SIZE. Left atrial cavity size and aortic root appear to be normal. There is no pericardial effusion. There is no thrombus noted in the left ventricle or left atrial cavity. M-MODE: MV: NORMAL AV: NORMAL TV: NORMAL PV: CHAMBER SIZE: ENLARGED LEFT ATRIAL CAVITY SIZE WALL MOTION: NORMAL PERICARDIUM: NORMAL INTERPRETATION: 1. LEFT VENTRICLE HYPERTROPHY WITH ENLARGED LEFT ATRIAL CAVITY 2. NORMAL VALVES 3. NORMAL LEFT VENTRICLE CONTRACTILITY MTDD
--- NOTE | 2022-01-30 13:53 | ECHOSTRESS ---
Date of Exam: 01/30/2022 Ordering Physician: DR. LOPEZ/MORE [facility] Reason for Echo: SOB, CHEST PAIN, DOBUTAMINE STRESS--NO ISCHEMIA M-Mode Normal Adult Results LV Dimensions Normal Adult Results AoV Opening excursions >1.6 LVEDD-base- 3.5-5.8 Ao root dimensions 2.0-3.7 LVESD-base- 3.1-4.6 L. Atrium dimensions 1.9-3.8 Post. Wall thickness 0.8-1.1 IV septum (thickness) 0.7-1.2 Post. Wall excursion 0.72-1.3 Septal motion Systolic motion R. Ventricular cavity 1.5-2.0 LVEF 60% Paradoxical septal wall motion 2-D: NORMAL LEFT VENTRICLE CONTRACTILITY --RESTING AND WITH DOBUTAMINE INFUSION M-MODE: MV: AV: TV: PV: CHAMBER SIZE: WALL MOTION: NORMAL LEFT VENTRICLE CONTRACTILITY --RESTING AND WITH DOBUTAMINE INFUSION PERICARDIUM: INTERPRETATION: 1. NORMAL LEFT VENTRICLE CONTRACTILITY --RESTING AND WITH DOBUTAMINE INFUSION MTDD
[2022-01-30 14:17] VITALS: BP 112/74; TEMP 97.1
--- NOTE | 2022-01-30 15:36 | PCM.PROG ---
Date Seen by Provider: 01/30/22 Time Seen by Provider: 11:00 Subjective: Patient still with intermittent chest pain. Overall, feeling better. Dr Nguyen to see for cardiac evaluation. Objective: Vitals: T=97.1 F, P=77, R=20, IO=889/74, SPO2=96 Patient appears to be comfortable. No pain or respiratory distress. HEENT: [] Neck: [] Lungs: [] Breath tones equal bilaterally. Chest clear. Mild to moderate tenderness of the left anterior chest wall. CVS: []RRR. Abdomen: [] Extremities: [] Neurological: [] Skin: [] Lab/Tests/Diagnostic Imaging: [] (1) Atypical chest pain: Status: Acute Code(s): R07.89 - Other chest pain SNOMED Code(s): 407075084 Plan: Dr Nguyen to evaluate today. Troponin levels return negative. Home if cardiac eval is OK.
--- NOTE | 2022-01-30 15:51 | PCM.DC ---
Final Diagnosis: atypical chest pain Physical Exam Appearance: Well-appearing Pain Distress: None Eyes: BABAK, EOMI and Conjunctiva clear ENT: Nose normal and Oropharynx normal Neck: Supple Respiratory: Airway patent, Breath sounds clear and Breath sounds equal Cardiovascular: RRR, No rub and No murmur GI/: Soft, Nontender, No masses and Bowel sounds normal Musculoskeletal: Normal strength, ROM intact and No calf tenderness Skin: Warm, Dry and Normal color Neurological: Sensation intact, Motor intact, Cranial nerves intact, Alert and Oriented Psychiatric: Affect appropriate and Mood appropriate (1) Atypical chest pain: Status: Acute Code(s): R07.89 - Other chest pain SNOMED Code(s): 398885860 Reason for Hospitalization: Patient at high risk for acute coronary syndrome. Admitted with left sided chest pain that radiates into the left axilla. EKG and serial troponin levels obtained to rule out cardiac event. Dr Nguyen saw the patient in consultation and she underwent a dobutamine stress test that proved negative for ischemia. Good LV function noted also. Prognosis/Condition at Discharge: Good condition. Medications at Discharge: Ambulatory Orders Medication Instructions Recorded aspirin 81 mg chewable tablet 81 mg PO DAILYWM 10/16/14 conjugated estrogens 1.25 mg 1.25 mg PO DAILY 04/07/15 tablet (Premarin) albuterol sulfate 90 mcg/actuation 2 puff INHALATION Q6H PRN 08/21/15 aerosol inhaler (ProAir HFA) atorvastatin 80 mg tablet 80 mg PO DAILY 02/09/18 linaclotide 145 mcg capsule 145 mcg PO PRN PRN 02/09/18 (Linzess) ranolazine 500 mg tablet,extended 500 mg PO BID 02/09/18 release,12 hr (Ranexa) clopidogrel 75 mg tablet 75 mg PO QDAY 01/08/21 fenofibrate nanocrystallized 145 145 mg PO QDAY 01/08/21 mg tablet gabapentin 300 mg capsule 300 mg PO TID 01/08/21 insulin lispro 100 unit/mL 10 unit SUBCUT TID ml 01/08/21 subcutaneous pen (Admelog SoloStar U-100 Insulin lispro) liraglutide 0.6 mg/0.1 mL (18 mg/3 1.2 mg SUBCUT BEDTIME ml 01/08/21 mL) subcutaneous pen injector (Victoza 2-Lazaro) losartan 25 mg tablet 25 mg PO QDAY 01/08/21 pantoprazole 40 mg tablet,delayed 40 mg PO QDAY 01/08/21 release tizanidine 2 mg capsule 4 mg PO QHS cap 04/26/21 promethazine 25 mg tablet 25 mg PO Q6H PRN 07/17/21 oxycodone 10 mg tablet 10 mg PO Q4H PRN 09/26/21 aripiprazole 5 mg tablet 5 mg PO QDAY #90 tab 01/23/22 diazepam 10 mg tablet 10 mg PO QDAY PRN 30 Days #10 tab 01/23/22 fluoxetine 40 mg capsule 80 mg PO QAM 90 Days #180 cap 01/23/22 trazodone 300 mg tablet 300 mg PO QHS PRN #60 tab 01/23/22 magnesium oxide 400 mg (241.3 mg 400 mg PO DAILY 01/29/22 magnesium) tablet insulin glargine 100 unit/mL (3 20 unit SUBCUT BEDTIME 01/30/22 mL) subcutaneous pen (Basaglar KwikPen U-100 Insulin) insulin glargine 100 unit/mL (3 30 unit SUBCUT DAILY 01/30/22 mL) subcutaneous pen (Basaglar KwikPen U-100 Insulin) Discharge Disposition: Home Hospital Course: Patient had recurrent left sided chest pain during admission. However, a dobutamine stress test was negative for ischemia. It was felt that her pain was secondary to a musculoskeletal etiology. Plan: Patient to follow up with her primary care provider within one week.
[2022-01-30] MEDS ORDERED: DESYREL PO PRN (21:00)
[2022-01-31] MEDS ORDERED: PROTONIX PO SCH (06:30)
[2022-01-31] MEDS ORDERED: NON-FORMULARY MEDICATION (Insulin Glargine [Basaglar Kwikpen U-100 Insulin] 100 unit/mL (3 SUBCUT SCH (09:00)
== END 2022-01-30 15:39 | disposition home or self-care (01) ==
LOC: MEDSURG A 16:43 → ED 16:43 → MEDSURG A 20:58
PROVIDERS: ADMIT Internal Medicine Geriatric Medicine; ATTEND Surgery
DX: F17.210 Nicotine dependence, cigarettes, uncomplicated; R06.2 Wheezing; Z79.01 Long term (current) use of anticoagulants; Z79.899 Other long term (current) drug therapy; I51.7 Cardiomegaly; R53.1 Weakness; Z79.4 Long term (current) use of insulin; M25.512 Pain in left shoulder; R07.89 Other chest pain; Z95.5 Presence of coronary angioplasty implant and graft; R05.9 Cough, unspecified; Z51.81 Encounter for therapeutic drug level monitoring; E11.9 Type 2 diabetes mellitus without complications; R06.00 Dyspnea, unspecified; Z20.822 Contact with and (suspected) exposure to COVID-19

== ENCOUNTER 2022-11-13 11:55 | Observation (INO) ==
[2022-11-13] MEDS ORDERED: DUONEB NEB ONE (12:16)
[2022-11-13] MEDS ORDERED: SOLU-MEDROL 125 MG IVP ONE (12:16)
--- NOTE | 2022-11-13 12:21 | ED.PDOC ---
General ED Provider: Dr. SAVANAH AHUMADA MD Chief Complaint: Respiratory Complaint Stated Complaint: mild to mod short of breath and off and on cough for few days, hx copd, dm, htn, cpap, on home oxygen, no fever, +fatigue Time Seen by Provider: 11/13/22 12:06 Mode of Arrival: Walk-In Information Source: Patient Primary Care Provider: DAJA AGUERO Nursing and Triage Documentation Reviewed and Agree: Yes Does patient meet sepsis criteria?: No System Inflammatory Response Syndrome: Not Applicable Sepsis Protocol: For patient's 13 years and over: Temp is 96.8 and below OR 101 and greater Pulse >90 BPM Resp >20/minute Acutely Altered Mental Status Are patient's symptoms suggestive of a new infection, such as: -Pneumonia -Skin, Soft Tissue -Endocarditis -UTI -Bone, Joint Infection -Implantable Device -Acute Abdominal Infection -Wound Infection -Meningitis -Blood Stream Catheter Infection -Unknown Review of Systems Review Of Systems Constitutional: Reports Malaise; Denies Fever Eyes: Denies Vision change Ears, Nose, Mouth, Throat: Denies Throat pain Respiratory: Reports Cough, Short of air and Wheezing; Denies Stridor Cardiac: Denies Chest pain or Edema GI: Denies Abdominal pain or Vomiting : Denies Frequency Musculoskeletal: Denies Neck pain Skin: Denies Cyanosis Neurological: Denies Cognitive dysfunction All Other Systems: Other [facility] Medical History Anxiety Asthma Borderline personality disorder Complicated grief Depression Diabetes Generalized anxiety disorder Hypertension Major depressive disorder, recurrent severe without psychotic features Memory deficit Neurocognitive disorder Panic attacks PTSD (post-traumatic stress disorder) Radicular pain of upper extremity Tobacco dependence Family History Mother Cancer Diabetes Alcoholism FATHER Heart attack Alcoholism BROTHER Brain injury Heart attack BROTHER Overdose BROTHER Hepatitis C BROTHER Hepatitis C SISTER Heart attack Social History Smoking and tobacco status: Current every day smoker Tobacco type: cigarettes Smoking packs per day: 1 Years smoked: 50 Quit status: has quit before Alcohol intake: never Substance use type: does not use Kenzie/adventist: CHRISTIANITY Special kenzie needs: No Agree to transfusion: Yes Adopted: No Caregiver/support person: No Household members: none Housing: house Marital status: D Lives independently: Yes Number of children: 5 Number of grandchildren: 12 Highest education level completed: 3rd grade Financial difficulty paying for basics: not very hard service: No half-way: No Current occupational status: disabled Current occupational exposures/hazards: No Pets and animals: Yes (dog ) History of recent travel: No Sexually active: No Do you think of yourself as: straight/heterosexual Current gender identity: female Seatbelt use: always Drives intoxicated or rides with intoxicated new autos delivery driver: No Water heater temperature set < 120 degrees: Yes Working smoke detector in home: Yes Fire extinguisher in home: Yes Carbon monoxide detector in home: Yes Firearms in home: No Surgical History H/O heart artery stent Female Reproductive History Menstrual Hx Hysterectomy: Yes Hx Tubal Ligation: No Physical Exam Physical Exam Appearance: Reports Obese Ill-appearing: Mild Pain Distress: None Eyes: Reports EOMI and Conjunctiva clear ENT: Reports Oropharynx normal Neck: Supple Respiratory: Reports Airway patent and Wheezes Cardiovascular: Reports RRR GI/: Reports Soft and Nontender Musculoskeletal: Reports ROM intact and No edema Skin: Reports Warm and Dry Neurological: Reports Alert and Oriented Psychiatric: Reports Affect appropriate Interpretation Radiology Interpretation Radiology Interpretation By: Radiologist Radiology Results: No acute changes Exam Interpreted: CXR EKG Interpretation Time of EKG #1: 13:56 Rate: Normal Rhythm: Sinus Interpretation: no stemi Critical Care Note Critical Care Note Total Critical Care Time (mins): 0 Course Course Hematology/Chemistry: 11/13/22 12:33 11/13/22 12:33 Orders, Labs, Meds: Lab Review 11/13/22 11/13/22 11/13/22 12:10 12:10 12:24 WBC RBC Hgb Hct MCV MCH MCHC RDW Coeff of Wilson Plt Count Immature Gran % (Auto) Neut % (Auto) Lymph % (Auto) [place] % (Auto) Eos % (Auto) Baso % (Auto) Neut # (Auto) Lymph # (Auto) [place] # (Auto) Eos # (Auto) Baso # (Auto) Immature Gran # (Auto) Puncture Site Rbrach Base Excess 10.1 H O2 Saturation 95.2 ABG pH 7.45 ABG pCO2 49.0 H ABG pO2 73.0 L ABG HCO3 34.1 H ABG Total CO2 35.6 H Hemoglobin 1.2 Oxyhemoglobin 88.1 L Carboxyhemoglobin 6.2 H Total Hemoglobin 13.5 FiO2 % 21.0 Sodium Potassium Chloride Carbon Dioxide Anion Gap BUN Creatinine Estimated GFR (MDRD) BUN/Creatinine Ratio Glucose Lactic Acid Calcium Total Bilirubin AST ALT Alkaline Phosphatase Troponin I NT-Pro-B Natriuret Pep Total Protein Albumin Globulin Albumin/Globulin Ratio Influ A Molecular Assay Negative by naat Influ B Molecular Assay Negative by naat SARS CoV-2 RNA Rapid SAMANTHA Negative 11/13/22 11/13/22 11/13/22 12:33 12:33 12:33 WBC 10.53 H RBC 4.31 Hgb 12.7 Hct 39.7 MCV 92.1 MCH 29.5 MCHC 32.0 RDW Coeff of Wilson 13.2 Plt Count 248 Immature Gran % (Auto) 0.4 Neut % (Auto) 59.8 Lymph % (Auto) 28.5 [place] % (Auto) 9.9 Eos % (Auto) 1.0 Baso % (Auto) 0.4 Neut # (Auto) 6.3 Lymph # (Auto) 3.0 [place] # (Auto) 1.0 Eos # (Auto) 0.1 Baso # (Auto) 0.0 Immature Gran # (Auto) 0.0 Puncture Site Base Excess O2 Saturation ABG pH ABG pCO2 ABG pO2 ABG HCO3 ABG Total CO2 Hemoglobin Oxyhemoglobin Carboxyhemoglobin Total Hemoglobin FiO2 % Sodium 135.4 Potassium 4.04 Chloride 101.7 Carbon Dioxide 29.7 Anion Gap 8.04 BUN 19.0 H Creatinine 0.55 L Estimated GFR (MDRD) 112.00 BUN/Creatinine Ratio 34.54 Glucose 162.6 H Lactic Acid 1.22 Calcium 8.92 Total Bilirubin 0.39 AST 21.5 ALT 16.2 Alkaline Phosphatase 93.7 Troponin I < 0.012 NT-Pro-B Natriuret Pep 77.200 Total Protein 6.55 Albumin 3.60 Globulin 2.95 Albumin/Globulin Ratio 1.22 Influ A Molecular Assay Influ B Molecular Assay SARS CoV-2 RNA Rapid SAMANTHA Orders Category Date Time Status ABG DRAW REQUEST Stat CARDIO 11/13/22 12:16 Ordered EKG-(ED ONLY) Stat CARDIO 11/13/22 12:16 Ordered OXYGEN [ED APPLY O2] .ONCE EMERGENCY 11/13/22 12:16 Active ABG COOX Stat LAB 11/13/22 12:24 Completed CBC W/ AUTO DIFF Stat LAB 11/13/22 12:33 Completed CMP [COMPREHENSIVE METABOLIC PANEL] Stat LAB 11/13/22 12:33 Completed LACTIC ACID Stat LAB 11/13/22 12:33 Completed MOLECULAR FLU A & B [FLU A/B MOLECULAR] Stat LAB 11/13/22 12:10 Completed NT-PROBNP Stat LAB 11/13/22 12:33 Completed SARS COV-2 RNA RAPID SAMANTHA Stat LAB 11/13/22 12:10 Completed TROPONIN I Stat LAB 11/13/22 12:33 Completed Ipratropium/Albuterol Neb [Duoneb] MEDS 11/13/22 12:16 Discontinued 3 ml NEB ONCE ONE Methylprednisolone Sod Succ/Pf [Solu-Medrol 125 mg] MEDS 11/13/22 12:16 Di scontinued 125 mg IVP ONCE ONE CHEST, 1V AP ONLY Stat RADS 11/13/22 12:16 Completed Medications Discontinued Medications Generic Name Dose Route Start Last Admin Trade Name Freq PRN Reason Stop Dose Admin Albuterol/Ipratropium 3 ml 11/13/22 12:16 11/13/22 12:28 Ipratropium/Albuterol Vial.Neb NEB 11/13/22 12:17 3 ml ONCE ONE Administration Methylprednisolone Sodium Succinate 125 mg 11/13/22 12:16 11/13/22 12:41 Methylprednisolone Sod Succ/Pf 125 Mg/2 Ml Vial IVP 11/13/22 12:17 125 mg ONCE ONE Administration Vital Signs: Temp Pulse Resp BP Pulse Ox 11/13/22 11:57 97.9 F 87 20 114/61 92 L Discharge Plan Discharge Patient Disposition: PLACED OBSERVATION Discharge Problem: COPD exacerbation, Hypoxia Prescriptions: No Action diazepam 10 mg tablet 10 mg PO QDAY PRN (Reason: panic attacks) 30 Days Qty: 10 1RF aspirin 81 MG tablet,chewable 81 mg PO DAILYWM Premarin 1.25 MG tablet 1.25 mg PO DAILY albuterol sulfate [ProAir HFA] 200 PUFF/8.5 GM HFA aerosol inhaler 2 puff inhalation Q6H PRN (Reason: SOB/WHEEZING) atorvastatin 80 MG tablet 80 mg PO DAILY ranolazine [Ranexa] 500 MG tablet extended release 12 hr 500 mg PO BID magnesium oxide 400 mg (241.3 mg magnesium) tablet 400 mg PO DAILY insulin aspart U-100 [Novolog U-100 Insulin aspart] 100 unit/mL Solution 18 unit SUBCUT TID methimazole 5 mg tablet 2.5 mg PO DAILY insulin glargine [Lantus Solostar U-100 Insulin] 100 unit/mL (3 mL) insulin pen 40 unit SUBCUT BID Anoro Ellipta 62.5-25 mcg/actuation blister with device 1 inh INHALATION DIRECTED pantoprazole 40 mg tablet,delayed release (DR/EC) 40 mg PO QDAY clopidogrel 75 mg tablet 75 mg PO QDAY fenofibrate nanocrystallized 145 mg tablet 145 mg PO QDAY losartan 25 mg tablet 25 mg PO QDAY oxycodone 10 mg tablet 10 mg PO 5XD pregabalin [Lyrica] 50 mg capsule 50 mg PO BID nicotine 21-14-7 mg/24 hr patch, TD daily, sequential 1 patch transdermal QDAY fluoxetine 40 mg capsule 80 mg PO QAM 90 Days Qty: 180 0RF trazodone 300 mg tablet 300 mg PO QHS PRN (Reason: insomnia) Qty: 90 0RF buspirone 15 mg tablet 15 mg PO TID Qty: 90 2RF tizanidine 2 mg capsule 4 mg PO BID Did you review [place] [employer] for ALL controlled substances?: Not Applicable ED Provider: SAVANHA HAUMADA Condition: Stable Physician Progress Note: admit to tele obs hospitalist []
[2022-11-13 12:34] LABS: ABG O2 HGB 88.1 % (95-100); ABG PH 7.45 (7.35-7.45); BEecf 10.1 (-2.0-3.0); COHb 6.2 (0.5-1.5); HCO3 34.1 (21-28); MetHb 1.2 (0-1.5); TCO2 35.6 (19-24); sO2 95.2 % (94-98); tHb 13.5 g/dl (11.7-17.4)
[2022-11-13 12:38] LABS: MOLECULAR FLU A NEGATIVE BY NAAT (NEGATIVE); MOLECULAR FLU B NEGATIVE BY NAAT (NEGATIVE)
[2022-11-13 12:38] LABS: BASOPHILS % (AUTO) 0.4 % (0.0-3.0); EOSINOPHILS # (AUTO) 0.1 K/ul (0.0-0.7); HEMATOCRIT 39.7 % (37.0-47.0); HEMOGLOBIN 12.7 g/dl (12.0-16.0); IMMATURE GRANULOCYTE % (AUTO) 0.4 % (0.0-5.0); LYMPHOCYTES % (AUTO) 28.5 (10.0-50.0); MEAN CORPUSCULAR HEMOGLOBIN 29.5 pg (27.0-31.0); MEAN CORPUSCULAR VOLUME 92.1 fl (81.0-99.0); MONOCYTES % (AUTO) 9.9 (0-10); NEUTROPHILS # (AUTO) 6.3 K/ul (2.0-6.9); NEUTROPHILS % (AUTO) 59.8 % (42.2-75.2); PLATELET COUNT 248 10^3/uL (140-440); RDW COEFFICIENT OF VARIATION 13.2 % (11.6-14.8); RED BLOOD COUNT 4.31 10^6/ul (4.20-5.40); WHITE BLOOD COUNT 10.53 K/ul (4.6-10.2)
[2022-11-13 12:52] LABS: ALANINE AMINOTRANSFERASE 16.2 U/L (0-35); ALKALINE PHOSPHATASE 93.7 U/L (53-141); ASPARTATE AMINO TRANSFERASE 21.5 U/L (14-36); BILIRUBIN,TOTAL 0.39 mg/dL (0.2-1.3); CALCIUM 8.92 mg/dL (8.4-10.2); CARBON DIOXIDE 29.7 mmol/L (22-30.0); CHLORIDE 101.7 mmol/L (98-107); CREATININE 0.55 mg/dL (0.60-1.30); GLUCOSE 162.6 mg/dL (74-106); POTASSIUM 4.04 mmol/L (3.5-5.1); SODIUM 135.4 mmol/L (134.5-145); TOTAL PROTEIN 6.55 g/dL (6.3-8.2)
[2022-11-13 13:04] LABS: TROPONIN I < 0.012 ng/ml (0.0000-0.120)
[2022-11-13 13:05] LABS: SARS COV-2 RNA RAPID NAAT NEGATIVE (NEGATIVE)
--- NOTE | 2022-11-13 13:38 | DI ---
EXAM: Chest one view, frontal view only. HISTORY: Cough. COMPARISON: 10/24/2022. FINDINGS: The heart size is normal. There is no pulmonary vascular congestion. Stable mild chronic bibasilar bronchial thickening and interstitial prominence. Otherwise, the lungs are clear. No ple ural effusion or pneumothorax is seen. No acute osseous abnormality is identified. Since the prior study, there has been no significant interval change. IMPRESSION: No acute cardiopulmonary process. Stable chronic changes.
[2022-11-13] MEDS ORDERED: TYLENOL PO PRN (13:58)
[2022-11-13] MEDS: SODIUM CHLORIDE 1,000 ML IV SCH (14:24)
[2022-11-13] MEDS: LEVAQUIN 750 MG/150 ML D5W 750 MG/150 ML BAG IV SCH (14:25)
[2022-11-13] MEDS ORDERED: FENOFIBRATE NANOCRYSTALLIZED 145 MG PO SCH (14:30)
[2022-11-13 15:36] VITALS: BMI 44.6
[2022-11-13] MEDS: COZAAR PO SCH (16:20)
[2022-11-13] MEDS: PROTONIX PO SCH (16:21)
[2022-11-13] MEDS: NICODERM 21 MG TD SCH (16:21)
[2022-11-13] MEDS: PLAVIX PO SCH (16:21)
[2022-11-13] MEDS: TRIGLIDE PO SCH (16:21)
[2022-11-13] MEDS: HUMULIN R SUBCUT PRN ×2 (17:39→20:57)
[2022-11-13] MEDS: DUONEB NEB SCH ×2 (17:52→23:20)
[2022-11-13] MEDS: LIPITOR PO SCH (20:56)
[2022-11-13] MEDS: DESYREL PO SCH (21:27)
[2022-11-13] MEDS: OXYCODONE PO PRN (21:27)
[2022-11-13] MEDS: SOLU-MEDROL 40 MG IVP SCH (21:28)
[2022-11-14] MEDS: DUONEB NEB SCH ×4 (05:05→22:32)
[2022-11-14] MEDS: PROTONIX PO SCH (05:34)
[2022-11-14 06:02] LABS: BASOPHILS % (AUTO) 0.1 % (0.0-3.0); EOSINOPHILS % (AUTO) 0.1 % (0.0-7.0); HEMATOCRIT 39.8 % (37.0-47.0); HEMOGLOBIN 12.9 g/dl (12.0-16.0); IMMATURE GRANULOCYTE # (AUTO) 0.1 (0.0-1.0); IMMATURE GRANULOCYTE % (AUTO) 0.4 % (0.0-5.0); LYMPHOCYTES # (AUTO) 1.3 K/uL (0.60-3.4); LYMPHOCYTES % (AUTO) 11.7 (10.0-50.0); MEAN CORPUSCULAR HEMOGLOBIN 30.1 pg (27.0-31.0); MEAN CORPUSCULAR HGB CONC 32.4 (31.8-35.4); MEAN CORPUSCULAR VOLUME 92.8 fl (81.0-99.0); MONOCYTES # (AUTO) 0.5 K/uL (0.4-2.0); MONOCYTES % (AUTO) 4.5 (0-10); NEUTROPHILS # (AUTO) 9.3 K/ul (2.0-6.9); NEUTROPHILS % (AUTO) 83.2 % (42.2-75.2); PLATELET COUNT 235 10^3/uL (140-440); RDW COEFFICIENT OF VARIATION 13.2 % (11.6-14.8); RED BLOOD COUNT 4.29 10^6/ul (4.20-5.40); WHITE BLOOD COUNT 11.15 K/ul (4.6-10.2)
[2022-11-14 06:18] LABS: ALBUMIN 3.68 g/dL (3.5-5.0); ALKALINE PHOSPHATASE 92.6 U/L (53-141); ASPARTATE AMINO TRANSFERASE 28.9 U/L (14-36); BILIRUBIN,TOTAL 0.38 mg/dL (0.2-1.3); BLOOD UREA NITROGEN 19.8 mg/dL (7-17); CALCIUM 8.76 mg/dL (8.4-10.2); CARBON DIOXIDE 28.6 mmol/L (22-30.0); CHLORIDE 101.6 mmol/L (98-107); CREATININE 0.53 mg/dL (0.60-1.30); GLUCOSE 291.7 mg/dL (74-106); POTASSIUM 4.05 mmol/L (3.5-5.1); SODIUM 136.1 mmol/L (134.5-145); TOTAL PROTEIN 6.64 g/dL (6.3-8.2)
[2022-11-14 06:23] LABS: ALANINE AMINOTRANSFERASE 37.4 U/L (0-35)
[2022-11-14] MEDS: HUMULIN R SUBCUT PRN ×4 (06:29→20:29)
[2022-11-14] MEDS: NICODERM 21 MG TD SCH (09:10)
[2022-11-14] MEDS: ASPIRIN CHEWABLE PO SCH (09:10)
[2022-11-14] MEDS: TRIGLIDE PO SCH (09:13)
[2022-11-14] MEDS: PLAVIX PO SCH (09:14)
[2022-11-14] MEDS: COZAAR PO SCH (09:14)
[2022-11-14] MEDS: OXYCODONE PO PRN ×2 (09:27→19:13)
[2022-11-14] MEDS: SOLU-MEDROL 40 MG IVP SCH ×2 (09:39→20:21)
[2022-11-14] MEDS: LEVAQUIN 750 MG/150 ML D5W 750 MG/150 ML BAG IV SCH (09:43)
[2022-11-14] MEDS: MAG-OX PO SCH (09:53)
--- NOTE | 2022-11-14 10:48 | PCM.PROG ---
Date Seen by Provider: 11/14/22 Time Seen by Provider: 09:20 Subjective: Still requiring supplemental oxygen. Objective: Vitals: T=96.8 F, P=64, R=18, BP=95/49, SPO2=95 Alert and in NAD. No respiratory distress. HEENT: [] Oral mucosa moist. Neck: [] Lungs: [] Breath tones decreased bilaterally and equal. CVS: [] RRR Abdomen: [] Extremities: [] Neurological: [] No deficits Skin: [] Lab/Tests/Diagnostic Imaging: [] (1) COPD exacerbation: Status: Acute Code(s): J44.1 - Chronic obstructive pulmonary disease with (acute) exacerbation SNOMED Code(s): 380702798 (2) Hypoxia: Status: Acute Code(s): R09.02 - Hypoxemia SNOMED Code(s): 590633907 Plan: Continue present care.
[2022-11-14] MEDS: PROZAC PO SCH (13:42)
[2022-11-14] MEDS: LYRICA PO SCH ×2 (13:42→20:20)
[2022-11-14] MEDS ORDERED: NON-FORMULARY MEDICATION (Magnesium Oxide 400 mg magnesium Tablet) PO SCH (14:23)
[2022-11-14] MEDS: BUSPAR PO SCH ×2 (15:19→20:20)
[2022-11-14] MEDS: SODIUM CHLORIDE 1,000 ML IV SCH (19:16)
[2022-11-14] MEDS: LIPITOR PO SCH (20:19)
[2022-11-14] MEDS: RANEXA PO SCH (20:20)
[2022-11-14] MEDS: ZANAFLEX PO SCH (20:20)
[2022-11-14] MEDS: LANTUS SUBCUT SCH (20:21)
[2022-11-14] MEDS: DESYREL PO SCH (20:21)
[2022-11-15] MEDS: HUMULIN R SUBCUT PRN ×4 (04:12→20:24)
[2022-11-15] MEDS: DUONEB NEB SCH ×4 (04:35→23:00)
[2022-11-15 05:14] LABS: BASOPHILS % (AUTO) 0.1 % (0.0-3.0); EOSINOPHILS % (AUTO) 0.3 % (0.0-7.0); HEMATOCRIT 37.2 % (37.0-47.0); IMMATURE GRANULOCYTE # (AUTO) 0.1 (0.0-1.0); LYMPHOCYTES # (AUTO) 1.8 K/uL (0.60-3.4); LYMPHOCYTES % (AUTO) 16.9 (10.0-50.0); MEAN CORPUSCULAR HEMOGLOBIN 30.2 pg (27.0-31.0); MEAN CORPUSCULAR HGB CONC 32.3 (31.8-35.4); MEAN CORPUSCULAR VOLUME 93.7 fl (81.0-99.0); MONOCYTES # (AUTO) 0.7 K/uL (0.4-2.0); MONOCYTES % (AUTO) 6.5 (0-10); NEUTROPHILS # (AUTO) 7.9 K/ul (2.0-6.9); NEUTROPHILS % (AUTO) 75.2 % (42.2-75.2); PLATELET COUNT 234 10^3/uL (140-440); RDW COEFFICIENT OF VARIATION 13.4 % (11.6-14.8); RED BLOOD COUNT 3.97 10^6/ul (4.20-5.40); WHITE BLOOD COUNT 10.44 K/ul (4.6-10.2)
[2022-11-15 05:28] LABS: ALANINE AMINOTRANSFERASE 19.8 U/L (0-35); ALBUMIN 3.56 g/dL (3.5-5.0); ALKALINE PHOSPHATASE 101.6 U/L (53-141); ASPARTATE AMINO TRANSFERASE 23.3 U/L (14-36); BILIRUBIN,TOTAL 0.3 mg/dL (0.2-1.3); BLOOD UREA NITROGEN 20.7 mg/dL (7-17); CALCIUM 8.59 mg/dL (8.4-10.2); CHLORIDE 103.4 mmol/L (98-107); CREATININE 0.54 mg/dL (0.60-1.30); GLUCOSE 308.6 mg/dL (74-106); POTASSIUM 4.34 mmol/L (3.5-5.1); SODIUM 136.8 mmol/L (134.5-145); TOTAL PROTEIN 6.34 g/dL (6.3-8.2)
[2022-11-15] MEDS: SODIUM CHLORIDE 1,000 ML IV SCH ×3 (07:42→21:57)
--- NOTE | 2022-11-15 09:09 | US ---
EXAM: RENAL (RETROPERITONEAL) ULTRASOUND HISTORY: Flank pain, hematuria TECHNIQUE: Sonography of the kidneys and urinary bladder was performed. Images were obtained and sto red in a permanent archive. COMPARISON: None FINDINGS: Right Kidney: - Renal length: 12.8 a cm. - Parenchyma: Normal echogenicity. Normal parenchymal thickness. - Collecting system: No hydronephrosis. - Calculus: None. - Lesion: None. Left Kidney: - Renal length: 11.7 cm. - Parenchyma: Normal echogenicity. Normal parenchymal thickness. - Collecting system: No hydronephrosis. - Calculus: None. - Lesion: None. Bladder: Incompletely distended. Wall thickness measures year 0.5 cm which may be secondary to incom plete distension. Clinical follow-up with follow up imaging as warranted. . . IMPRESSION: No hydronephrosis. The urinary bladder wall is mildly thickened which may be accentuated by incomplete distension. Clin ical follow-up with follow up imaging as warranted.
[2022-11-15] MEDS: OXYCODONE PO PRN ×2 (09:10→17:29)
[2022-11-15] MEDS: ASPIRIN CHEWABLE PO SCH (09:25)
[2022-11-15] MEDS: TRIGLIDE PO SCH (09:26)
[2022-11-15] MEDS: RANEXA PO SCH ×2 (09:26→20:27)
[2022-11-15] MEDS: PROZAC PO SCH (09:26)
[2022-11-15] MEDS: LASIX TAB PO SCH (09:26)
[2022-11-15] MEDS: COZAAR PO SCH (09:28)
[2022-11-15] MEDS: BUSPAR PO SCH ×3 (09:28→20:26)
[2022-11-15] MEDS: ARICEPT PO SCH (09:28)
[2022-11-15] MEDS: ZANAFLEX PO SCH ×2 (09:29→20:27)
[2022-11-15] MEDS: LYRICA PO SCH ×2 (09:29→20:27)
[2022-11-15] MEDS: VESICARE PO SCH (09:29)
[2022-11-15] MEDS: PLAVIX PO SCH (09:30)
[2022-11-15] MEDS: PROTONIX PO SCH (09:30)
[2022-11-15] MEDS: NICODERM 21 MG TD SCH (09:31)
[2022-11-15] MEDS: LEVAQUIN 750 MG/150 ML D5W 750 MG/150 ML BAG IV SCH (09:35)
[2022-11-15] MEDS: LANTUS SUBCUT SCH ×2 (09:35→20:23)
[2022-11-15] MEDS: SOLU-MEDROL 40 MG IVP SCH ×2 (09:36→20:28)
--- NOTE | 2022-11-15 10:20 | PCM.PROG ---
Date Seen by Provider: 11/15/22 Time Seen by Provider: 10:17 Subjective: dx. copd Objective: Vitals: T=96.7 F, P=69, R=18, EE=585/56, SPO2=94 HEENT: []conjunctiva clear Neck: []supple Lungs: [] slight bilateral wheezing CVS: []rrr Abdomen: []nondistended Extremities: []rl Neurological: []alert Skin: []warm and dry Lab/Tests/Diagnostic Imaging: [] wbc 10.4, us kidneys reported nap (1) COPD exacerbation: Status: Acute Code(s): J44.1 - Chronic obstructive pulmonary disease with (acute) exacerbation SNOMED Code(s): 447230903 (2) Hypoxia: Status: Acute Code(s): R09.02 - Hypoxemia SNOMED Code(s): 230420739 Plan: continue duo neb and solumedrol, obtain u/a, day 3 of levaquin angela start pt
[2022-11-15] MEDS: MUCINEX PO SCH ×2 (11:36→20:27)
[2022-11-15 13:01] LABS: BILIRUBIN,URINE Negative (NEGATIVE); CLARITY,URINE Clear (CLEAR); COLOR,URINE Yellow (YELLOW); GLUCOSE, URINE (UA) 1+ (NEGATIVE); KETONES,URINE Negative (NEGATIVE); LEUKOCYTE ESTERASE ,URINE Negative (NEGATIVE); NITRITE,URINE Negative (NEGATIVE); PROTEIN,URINE 1+ (NEGATIVE); URINE, BLOOD Trace-intact (NEGATIVE); UROBILINOGEN,URINE 0.2 (0.2)
[2022-11-15 13:08] LABS: BACTERIA,URINE TRACE (NOT PRESENT); SQUAMOUS EPITHELIAL CELL,UR 20-30 (0-5)
[2022-11-15] MEDS ORDERED: TESSALON PERLES PO PRN (19:26)
[2022-11-15] MEDS: LIPITOR PO SCH (20:26)
[2022-11-15] MEDS: DESYREL PO SCH (20:27)
[2022-11-16] MEDS: DUONEB NEB SCH ×2 (04:35→11:26)
[2022-11-16] MEDS: PROTONIX PO SCH (05:49)
[2022-11-16] MEDS: LASIX TAB PO SCH (05:49)
[2022-11-16] MEDS: HUMULIN R SUBCUT PRN (06:00)
[2022-11-16] MEDS ORDERED: LEVAQUIN PO SCH (06:30)
[2022-11-16] MEDS: RANEXA PO SCH (08:19)
[2022-11-16] MEDS: VESICARE PO SCH (08:19)
[2022-11-16] MEDS: LYRICA PO SCH (08:19)
[2022-11-16] MEDS: BUSPAR PO SCH (08:20)
[2022-11-16] MEDS: ARICEPT PO SCH (08:21)
[2022-11-16] MEDS: PLAVIX PO SCH (08:23)
[2022-11-16] MEDS: ASPIRIN CHEWABLE PO SCH (08:23)
[2022-11-16] MEDS: MUCINEX PO SCH (08:23)
[2022-11-16] MEDS: ZANAFLEX PO SCH (08:24)
[2022-11-16] MEDS: COZAAR PO SCH (08:24)
[2022-11-16] MEDS: PROZAC PO SCH (08:25)
[2022-11-16] MEDS: TRIGLIDE PO SCH (08:25)
[2022-11-16] MEDS: SOLU-MEDROL 40 MG IVP SCH (08:26)
[2022-11-16] MEDS: LANTUS SUBCUT SCH (08:27)
[2022-11-16] MEDS: NICODERM 21 MG TD SCH (08:32)
[2022-11-16] MEDS: MAG-OX PO SCH (08:41)
[2022-11-16 09:50] VITALS: BP 149/68; TEMP 96.7
[2022-11-16] MEDS: SODIUM CHLORIDE 1,000 ML IV SCH (10:05)
--- NOTE | 2022-11-16 11:33 | PCM.PROG ---
Date Seen by Provider: 11/16/22 Time Seen by Provider: 11:31 Subjective: copd dx. Objective: Vitals: T=96.7 F, P=62, R=16, TD=382/68, SPO2=98 HEENT: []conjunctiva clear Neck: []supple Lungs: [] clear CVS: []rrr Abdomen: nondistended[] Extremities: []warm and dry Neurological: []alert Skin: []pink Lab/Tests/Diagnostic Imaging: [] wbc 10.6 11/15 (1) COPD exacerbation: Status: Acute Code(s): J44.1 - Chronic obstructive pulmonary disease with (acute) exacerbation SNOMED Code(s): 576778318 (2) Hypoxia: Status: Acute Code(s): R09.02 - Hypoxemia SNOMED Code(s): 798853010 Plan: discharge home
--- NOTE | 2022-11-16 11:35 | PCM.DC ---
Final Diagnosis: copd Physical Exam Appearance: Well-appearing Ill-appearing: None Pain Distress: None Eyes: Conjunctiva clear ENT: Oropharynx normal Neck: Supple Respiratory: Airway patent, Breath sounds clear and Breath sounds equal Cardiovascular: RRR GI/: Soft and Nontender Musculoskeletal: ROM intact Skin: Warm and Dry Neurological: Alert and Oriented Psychiatric: Affect appropriate (1) COPD exacerbation: Status: Acute Code(s): J44.1 - Chronic obstructive pulmonary disease with (acute) exacerbation SNOMED Code(s): 362434872 (2) Hypoxia: Status: Acute Code(s): R09.02 - Hypoxemia SNOMED Code(s): 831519130 Reason for Hospitalization: short of breath Prognosis/Condition at Discharge: fair Medications at Discharge: tessalon, albuterol inhaler, medrol, levaquin, home meds, pt has home oxygen Lab/Diagnostics: cxr nap per Rad Education Provided to Patient and Family: how to use an inhaler Follow-ups: see your doctor Discharge Disposition: Home Hospital Course: pt improved Plan: discharge home
== END 2022-11-16 12:35 | disposition home or self-care (01) ==
LOC: ED 11:55 → MEDSURG A 11:55
PROVIDERS: ADMIT Emergency Medicine Emergency Medical Services; ATTEND Emergency Medicine Emergency Medical Services
DX: Z20.822 Contact with and (suspected) exposure to COVID-19; I10 Essential (primary) hypertension; F17.210 Nicotine dependence, cigarettes, uncomplicated; J44.1 Chronic obstructive pulmonary disease with (acute) exacerbation; R09.02 Hypoxemia; Z79.899 Other long term (current) drug therapy; Z51.81 Encounter for therapeutic drug level monitoring; Z99.81 Dependence on supplemental oxygen; Z79.4 Long term (current) use of insulin; J45.909 Unspecified asthma, uncomplicated; E11.9 Type 2 diabetes mellitus without complications; R06.02 Shortness of breath

== ENCOUNTER 2024-02-03 18:08 | Observation (INO) ==
[2024-02-03] MEDS: ASPIRIN CHEWABLE PO ONE (18:34)
[2024-02-03 18:39] LABS: BASOPHILS % (AUTO) 0.5 % (0.0-3.0); EOSINOPHILS # (AUTO) 0.1 K/ul (0.0-0.7); EOSINOPHILS % (AUTO) 1.2 % (0.0-7.0); HEMATOCRIT 37.4 % (37.0-47.0); HEMOGLOBIN 12.2 g/dl (12.0-16.0); IMMATURE GRANULOCYTE % (AUTO) 0.3 % (0.0-5.0); LYMPHOCYTES # (AUTO) 2.4 K/uL (0.60-3.4); LYMPHOCYTES % (AUTO) 26.6 (10.0-50.0); MEAN CORPUSCULAR HEMOGLOBIN 29.8 pg (27.0-31.0); MEAN CORPUSCULAR HGB CONC 32.6 (31.8-35.4); MEAN CORPUSCULAR VOLUME 91.2 fl (81.0-99.0); MONOCYTES # (AUTO) 1.3 K/uL (0.4-2.0); MONOCYTES % (AUTO) 14.1 (0-10); NEUTROPHILS # (AUTO) 5.1 K/ul (2.0-6.9); NEUTROPHILS % (AUTO) 57.3 % (42.2-75.2); PLATELET COUNT 206 10^3/uL (140-440); RDW COEFFICIENT OF VARIATION 14.3 % (11.6-14.8); WHITE BLOOD COUNT 8.84 K/ul (4.6-10.2)
[2024-02-03 18:52] LABS: ALANINE AMINOTRANSFERASE 16.3 U/L (0-35); ALBUMIN 3.54 g/dL (3.5-5.0); ASPARTATE AMINO TRANSFERASE 24.6 U/L (14-36); BILIRUBIN,TOTAL 0.49 mg/dL (0.2-1.3); BLOOD UREA NITROGEN 17.4 mg/dL (7-17); CALCIUM 8.94 mg/dL (8.4-10.2); CARBON DIOXIDE 28.4 mmol/L (22-30.0); CHLORIDE 99.8 mmol/L (98-107); CREATININE 0.56 mg/dL (0.60-1.30); GLUCOSE 286.6 mg/dL (74-106); POTASSIUM 3.71 mmol/L (3.5-5.1); SODIUM 133.6 mmol/L (134.5-145); TOTAL PROTEIN 6.64 g/dL (6.3-8.2)
--- NOTE | 2024-02-03 18:58 | ED.PDOC ---
General ED Provider: Dr. AZALIA PANIAGUA DO Chief Complaint: Chest Pain Stated Complaint: Patient is a 63 yo F here for multiple medical complaints She arrives afebrile with elevated blood pressure by POV She complains of: chest pain, dizziness, headache, L arm pain for 3 weeks duration She is a smoker She has had 2 stents but no heart attacks per her Last echo 01/2022 LVEF 60% No falls or injuries She denies productive cough, rash, dysuria She admits to constipation She has a hx of CAD, chirosis, COPD 3L NC and cpap at night, HTN, chest pain, DM2 insulin dependent, neurocognitive disorder, hyperthyroidism She denies fevers or chills She denies changes in apetitis She is pelasnt to speak with She is amenable to labs and imaging She has SOB allergy to IV contrast Time Seen by Provider: 02/03/24 18:28 Information Source: Patient Primary Care Provider: DAJA AGUERO Nursing and Triage Documentation Reviewed and Agree: Yes What is Opioid Naive?: *Opioid Naive implies the patient is not already taking opioids or not chronically receiving opioids on a daily basis. *PRN dosing is not "usually" associated with tolerance. *Patients are at higher risk of over-sedation and aspiration. What is Opioid Tolerant?: *Opioid Tolerance implies less than the expected response to an opioid. *Acquired tolerance is defined by the patient taking 60mg of oral morphine daily (or equianalgesic dose of another opioid) for 1 week or more. *Often associated with chronic pain. *May take more than usual dose to achieve desired pain control. Review of Systems Review Of Systems Constitutional: Reports Weakness; Denies Chills or Fever Eyes: Denies Blindness, Vision change or Drainage Ears, Nose, Mouth, Throat: Denies Ear pain, Nose pain or Throat pain Respiratory: Reports Cough; Denies Shortness of Breath or Wheezing Cardiac: Reports Chest pain; Denies Palpitations GI: Reports Abdominal pain and Constipated; Denies Diarrhea, Nausea or Vomiting : Denies Burning, Dysuria or Discharge Musculoskeletal: Denies Back pain or Neck pain Skin: Denies Bruising or Rash Neurological: Denies Anxiety or Depressed Endocrine: Reports No symptoms Hematologic/Lymphatic: Reports No symptoms All Other Systems: Reviewed and Negative [facility] Medical History Memory deficit IS GOING TO [facility] ON 07/18 TO HAVE A [address] TEST PER DR. UPTON/PATIENT. R41.3 - Other amnesia (ICD-10) Anxiety F41.9 - Anxiety disorder, unspecified (ICD-10) Depression F32.9 - Major depressive disorder, single episode, unspecified (ICD-10) Asthma J45.909 - Unspecified asthma, uncomplicated (ICD-10) Panic attacks F41.0 - Panic disorder [episodic paroxysmal anxiety] (ICD-10) Radicular pain of upper extremity M54.10 - Radiculopathy, site unspecified (ICD-10) Family History Mother Cancer brain Diabetes Alcoholism FATHER Heart attack Alcoholism BROTHER Brain injury hit by car at age 3 Heart attack BROTHER Overdose BROTHER Hepatitis C BROTHER Hepatitis C SISTER Heart attack Social History Smoking and tobacco status: Former smoker Quit status: has quit before Alcohol intake: never Substance use type: does not use Kenzie/mormonism: PENTECOSTALISM Special kenzie needs: No Agree to transfusion: Yes Adopted: No Caregiver/support person: No Household members: none Housing: house Marital status: D Lives independently: Yes Number of children: 5 Number of grandchildren: 12 Highest education level completed: 3rd grade Financial difficulty paying for basics: not very hard service: No long-term: No Current occupational status: disabled Current occupational exposures/hazards: No Pets and animals: Yes (dog ) History of recent travel: No Sexually active: No Do you think of yourself as: straight/heterosexual Current gender identity: female Seatbelt use: always Drives intoxicated or rides with intoxicated funeral driver: No Water heater temperature set < 120 degrees: Yes Working smoke detector in home: Yes Fire extinguisher in home: Yes Carbon monoxide detector in home: Yes Firearms in home: No Surgical History H/O heart artery stent Z95.5 - Presence of coronary angioplasty implant and graft (ICD-10) Female Reproductive History Menstrual Hx Hysterectomy: Yes Hx Tubal Ligation: No Physical Exam Physical Exam Appearance: Reports Well-appearing, Well-nourished and Obese Ill-appearing: Not Applicable Pain Distress: Not Applicable Eyes: Reports BABAK, EOMI and Conjunctiva clear ENT: Reports Ears normal, Nose normal and Oropharynx normal Neck: Supple Respiratory: Reports Airway patent, Breath sounds clear and Wheezes; Denies Crackles or Rhonchi Cardiovascular: Reports RRR and Pulses normal GI/: Reports Soft, Nontender and Other (no guarding or peritonitis, negative grover sign no [place] ttp) Musculoskeletal: Reports Normal strength, ROM intact and No edema Skin: Reports Warm and Dry Neurological: Reports Sensation intact, Motor intact, Alert and Oriented Psychiatric: Reports Affect appropriate and Mood appropriate Interpretation EKG Interpretation EKG Interpretation By: ED Physician Time of EKG #1: 18:28 Interpretation: NSR rate 77 no stemi qt 438 ms Time of EKG #2: 19:32 Rate: Normal Rhythm: Sinus Ectopy: None ST Segment: Normal Course Course 02/05/24 05:04 02/05/24 05:04 Orders, Labs, Meds: Lab Review 02/03/24 02/03/24 02/03/24 18:28 18:29 18:45 WBC 8.84 RBC 4.10 L Hgb 12.2 Hct 37.4 MCV 91.2 MCH 29.8 MCHC 32.6 RDW Coeff of Wilson 14.3 Plt Count 206 Immature Gran % (Auto) 0.3 Neut % (Auto) 57.3 Lymph % (Auto) 26.6 [place] % (Auto) 14.1 H Eos % (Auto) 1.2 Baso % (Auto) 0.5 Neut # (Auto) 5.1 Lymph # (Auto) 2.4 [place] # (Auto) 1.3 Eos # (Auto) 0.1 Baso # (Auto) 0.0 Immature Gran # (Auto) 0.0 Puncture Site Base Excess O2 Saturation ABG pH ABG pCO2 ABG pO2 ABG HCO3 ABG Total CO2 Grzegorz Test Hemoglobin Oxyhemoglobin Carboxyhemoglobin Total Hemoglobin O2 Delivery Device Oxygen Liter Flow Sodium 133.6 L Potassium 3.71 Chloride 99.8 Carbon Dioxide 28.4 Anion Gap 9.11 BUN 17.4 H Creatinine 0.56 L Estimated GFR (MDRD) 109.00 BUN/Creatinine Ratio 31.07 Glucose 286.6 H Lactic Acid 1.49 Calcium 8.94 Total Bilirubin 0.49 AST 24.6 ALT 16.3 Alkaline Phosphatase 98.0 Ammonia Troponin I < 0.012 Total Protein 6.64 Albumin 3.54 Globulin 3.10 Albumin/Globulin Ratio 1.14 Lipase 67.0 Procalcitonin TSH 0.715 Free T4 1.10 Urine Color Urine Clarity Urine pH Ur Specific [place] Urine Protein Urine Glucose (UA) Urine Ketones Urine Blood Urine Nitrite Urine Bilirubin Urine Urobilinogen Ur Leukocyte Esterase Urine Microscopic RBC Ur Squamous Epith Cells Urine Bacteria Acetone, Qual None Influ A Molecular Assay Negative by naat Influ B Molecular Assay Negative by naat SARS CoV-2 RNA Rapid SAMANTHA Negative 02/03/24 02/03/24 02/03/24 18:52 18:59 19:55 WBC RBC Hgb Hct MCV MCH MCHC RDW Coeff of [place] Plt Count Immature Gran % (Auto) Neut % (Auto) Lymph % (Auto) [place] % (Auto) Eos % (Auto) Baso % (Auto) Neut # (Auto) Lymph # (Auto) [place] # (Auto) Eos # (Auto) Baso # (Auto) Immature Gran # (Auto) Puncture Site L radial Base Excess 9.0 H O2 Saturation 97.5 ABG pH 7.41 ABG pCO2 53.0 H ABG pO2 95.0 ABG HCO3 33.6 H ABG Total CO2 35.2 H Grzegorz Test + Hemoglobin 1.1 Oxyhemoglobin 88.3 L Carboxyhemoglobin 8.1 H Total Hemoglobin 12.3 O2 Delivery Device Cannula Oxygen Liter Flow 3.00 Sodium Potassium Chloride Carbon Dioxide Anion Gap BUN Creatinine Estimated GFR (MDRD) BUN/Creatinine Ratio Glucose Lactic Acid Calcium Total Bilirubin AST ALT Alkaline Phosphatase Ammonia 41.7 H Troponin I Total Protein Albumin Globulin Albumin/Globulin Ratio Lipase Procalcitonin TSH Free T4 Urine Color Yellow Urine Clarity Clear Urine pH 6.5 Ur Specific [place] 1.015 Urine Protein 1+ H Urine Glucose (UA) 3+ H Urine Ketones Negative Urine Blood Trace-intact H Urine Nitrite Negative Urine Bilirubin Negative Urine Urobilinogen 2.0 H Ur Leukocyte Esterase Negative Urine Microscopic RBC 2-5 Ur Squamous Epith Cells 5-10 Urine Bacteria Trace Acetone, Qual Influ A Molecular Assay Influ B Molecular Assay SARS CoV-2 RNA Rapid SAMANTHA 02/03/24 20:02 WBC RBC Hgb Hct MCV MCH MCHC RDW Coeff of [place] Plt Count Immature Gran % (Auto) Neut % (Auto) Lymph % (Auto) [place] % (Auto) Eos % (Auto) Baso % (Auto) Neut # (Auto) Lymph # (Auto) [place] # (Auto) Eos # (Auto) Baso # (Auto) Immature Gran # (Auto) Puncture Site Base Excess O2 Saturation ABG pH ABG pCO2 ABG pO2 ABG HCO3 ABG Total CO2 Grzegorz Test Hemoglobin Oxyhemoglobin Carboxyhemoglobin Total Hemoglobin O2 Delivery Device Oxygen Liter Flow Sodium Potassium Chloride Carbon Dioxide Anion Gap BUN Creatinine Estimated GFR (MDRD) BUN/Creatinine Ratio Glucose Lactic Acid Calcium Total Bilirubin AST ALT Alkaline Phosphatase Ammonia Troponin I < 0.012 Total Protein Albumin Globulin Albumin/Globulin Ratio Lipase Procalcitonin < 0.05 TSH Free T4 Urine Color Urine Clarity Urine pH Ur Specific [place] Urine Protein Urine Glucose (UA) Urine Ketones Urine Blood Urine Nitrite Urine Bilirubin Urine Urobilinogen Ur Leukocyte Esterase Urine Microscopic RBC Ur Squamous Epith Cells Urine Bacteria Acetone, Qual Influ A Molecular Assay Influ B Molecular Assay SARS CoV-2 RNA Rapid SAMANTHA Orders Category Date Time Status OBSERVATION [[facility] 20:49 Completed (MONITORED BED) OBSERVATION [[facility]/03/24 20:50 Completed (MONITORED BED) ABG DRAW REQUEST Stat CARDIO 02/03/24 18:40 Completed EKG-(ED ONLY) Stat CARDIO 02/03/24 18:28 Completed EKG-(ED ONLY) Stat CARDIO 02/03/24 19:19 Completed OXYGEN Routine CARDIO 02/03/24 20:52 Completed ACTIVITY .Early Mobilization for VTE Prevention CARE 02/03/24 20:50 Completed BLOOD GLUCOSE MONITORING (MED/SURG) 0630,1100,1700,2100 CARE 02/03/24 20:52 Completed GIVE HS SNACK 2100 CARE 02/03/24 20:52 Completed INTAKE & OUTPUT Q8HR CARE 02/03/24 20:52 Completed REMINDER: Give Insulin if Needed 0630,1100,1700,2100 CARE 02/03/24 20:50 Completed TELEMETRY MONITORING TELE CARE 02/03/24 20:49 Completed TELEMETRY MONITORING TELE CARE 02/03/24 20:50 Completed VITAL SIGNS Q4HR CARE 02/03/24 20:52 Completed ADA 1800 REN. DIET DIETARY 02/04/24 Breakfast Completed HS SNACK DIETARY 02/03/24 Dinner Completed ED APPLY O2 .ONCE EMERGENCY 02/03/24 18:28 Completed ED GENERAL LABOR APPLIED .ONCE EMERGENCY 02/03/24 18:28 Completed ABG COOX Stat LAB 02/03/24 18:59 Completed ACETONE, QUALITATIVE Stat LAB 02/03/24 18:45 Completed AMMONIA DAILY@0600 LAB 02/04/24 05:01 Completed AMMONIA DAILY@0600 LAB 02/05/24 05:04 Completed AMMONIA Stat LAB 02/03/24 18:52 Completed AMMONIA Timed LAB 02/04/24 00:40 Completed BLOOD CULTURE Stat LAB 02/03/24 20:55 Results CBC W/ AUTO DIFF DAILY@0600 LAB 02/04/24 05:01 Completed CBC W/ AUTO DIFF DAILY@0600 LAB 02/05/24 05:04 Completed CBC W/ AUTO DIFF Stat LAB 02/03/24 18:28 Completed COMPREHENSIVE METABOLIC PANEL DAILY@0600 LAB 02/04/24 05:01 Completed COMPREHENSIVE METABOLIC PANEL DAILY@0600 LAB 02/05/24 05:04 Completed COMPREHENSIVE METABOLIC PANEL Stat LAB 02/03/24 18:28 Completed FLU A/B MOLECULAR Stat LAB 02/03/24 18:29 Completed FREE T4 (FREE THYROXINE) Stat LAB 02/03/24 18:45 Completed LACTIC ACID Stat LAB 02/03/24 18:45 Completed LIPASE Stat LAB 02/03/24 18:45 Completed PROCALCITONIN Stat LAB 02/03/24 20:02 Completed SARS COV-2 RNA RAPID SAMANTHA Stat LAB 02/03/24 18:29 Completed THYROID STIMULATING HORMONE Stat LAB 02/03/24 18:45 Completed TROPONIN I Stat LAB 02/03/24 18:28 Completed TROPONIN I Stat LAB 02/03/24 20:02 Completed TROPONIN I Timed LAB 02/04/24 00:40 Completed UA [URINALYSIS C & S IF INDICATED] Stat LAB 02/03/24 19:55 Completed Aspirin [Aspirin Chewable] Meds 02/03/24 18:28 Discontinued 324 mg PO ONCE ONE Ketorolac Tromethamine [Toradol] Meds 02/03/24 20:43 Discontinued 15 mg IVP ONCE ONE Lactulose Meds 02/03/24 19:52 Discontinued 20 gm PO ONCE ONE Levofloxacin/D5w [Levaquin 750 mg/150 ml D5w] Meds 02/04/24 21:00 Discontinued 750 mg in 150 ml IV BEDTIME Levofloxacin/D5w [Levaquin 750 mg/150 ml D5w] Meds 02/03/24 20:39 Discontinued 750 mg in 150 ml IV ONCE Sodium Chloride 0.9% [Sodium Chloride] 1,000 ml Meds 02/03/24 21:00 Discontinued IV 75 mls/hr CT ABDOMEN/PELVIS WO CONTRAST Stat RADS 02/03/24 18:[address] CHEST W/O CONTRAST Stat RADS 02/03/24 18:[address] HEAD W/O CONTRAST Stat RADS 02/03/24 18:40 Completed Medications Discontinued Medications Generic Name Dose Route Start Last Admin Trade Name Freq PRN Reason Stop Dose Admin Albuterol Sulfate 2 puff 02/03/24 22:12 Albuterol Sulfate 8 Gm Inhaler IH Q6H PRN Wheezing Albuterol/Ipratropium 3 ml 02/04/24 14:00 02/05/24 10:47 Ipratropium/Albuterol Vial.Neb NEB Not Given RTQ4H MARIAELENA Aspirin 324 mg 02/03/24 18:28 02/03/24 18:34 Aspirin 81 Mg Tab.Chew PO 02/03/24 18:29 324 mg ONCE ONE Administration Aspirin 81 mg 02/04/24 07:30 02/05/24 08:15 Aspirin 81 Mg Tab.Chew PO 81 mg DAILYWM2 MARIAELENA Administration Atorvastatin Calcium 80 mg 02/04/24 21:00 02/04/24 20:05 Atorvastatin Calcium 20 Mg Tablet PO 80 mg BEDTIME MARIAELENA Administration Clopidogrel Bisulfate 75 mg 02/03/24 22:30 02/05/24 08:16 Clopidogrel Bisulfate 75 Mg Tablet PO 75 mg DAILY MARIAELENA Administration Donepezil HCl 5 mg 02/04/24 21:00 02/04/24 20:06 Donepezil Hcl 10 Mg Tablet PO 5 mg BEDTIME MARIAELENA Administration Fenofibrate 160 mg 02/04/24 09:00 02/05/24 08:16 Fenofibrate 160 Mg Tablet PO 160 mg DAILY MARIAELENA Administration Fluoxetine HCl 80 mg 02/04/24 09:00 02/05/24 08:17 Fluoxetine Hcl 20 Mg Capsule PO 80 mg QAM MARIAELENA Administration Furosemide 40 mg 02/04/24 09:00 02/05/24 06:11 Furosemide 40 Mg Tablet PO 40 mg QDAC2 MARIAELENA Administration Levofloxacin/Dextrose 750 mg in 150 mls @ 100 mls/hr 02/03/24 20:39 02/03/24 20:49 Levaquin 750 Mg/150 Ml D5w IV 02/03/24 22:08 100 mls/hr ONCE ONE Administration Levofloxacin/Dextrose 750 mg in 150 mls @ 100 mls/hr 02/04/24 21:00 02/04/24 20:05 Levaquin 750 Mg/150 Ml D5w IV 02/07/24 20:59 100 mls/hr BEDTIME MARIAELENA Administration Sodium Chloride 1,000 mls @ 75 mls/hr 02/03/24 21:00 02/05/24 11:04 Sodium Chloride IV Infused .[id number] MARIAELENA Infusion Insulin Glargine 50 unit 02/04/24 09:00 02/05/24 08:17 Insulin Glargine,Hum.Rec.Anlog 100 Units/Ml SUBCUT 50 unit BID MARIAELENA Administration Insulin Human Lispro 0 unit 02/03/24 22:16 02/05/24 06:38 Insulin Lispro 100 Unit/Ml Vial SUBCUT 10 unit PRN PRN Administration Hyperglycemia Protocol Ketorolac Tromethamine 15 mg 02/03/24 20:43 02/03/24 20:49 Ketorolac Tromethamine 15 Mg/Ml Vial IVP 02/03/24 20:44 15 mg ONCE ONE Administration Ketorolac Tromethamine 30 mg 02/04/24 09:34 02/04/24 10:33 Ketorolac Tromethamine 30 Mg/Ml Vial IVP 02/04/24 09:35 30 mg ONCE ONE Administration Lactulose 20 gm 02/03/24 19:52 02/03/24 20:00 Lactulose 20 Gm/30 Ml Cup PO 02/03/24 19:53 20 gm ONCE ONE Administration Lactulose 20 gm 02/04/24 09:34 02/04/24 10:33 Lactulose 20 Gm/30 Ml Cup PO 02/04/24 09:35 20 gm ONCE ONE Administration Losartan Potassium 25 mg 02/03/24 22:30 02/05/24 08:16 Losartan Potassium 25 Mg Tablet PO 25 mg DAILY MARIAELENA Administration Magnesium Oxide 800 mg 02/04/24 22:12 02/04/24 21:14 Magnesium Oxide 400 Mg Tablet PO 800 mg MOWEFR MARIAELENA Administration Meloxicam 15 mg 02/04/24 07:30 02/05/24 08:16 Meloxicam 7.5 Mg Tablet PO 15 mg DAILYWM2 MARIAELENA Administration Methimazole 2.5 mg 02/04/24 09:00 02/05/24 08:25 Methimazole 10 Mg Tablet PO 2.5 mg DAILY MARIAELENA Administration Methylprednisolone Sodium Succinate 40 mg 02/04/24 09:35 02/04/24 14:35 Methylprednisolone Sod Succ/Pf 40 Mg/Ml Vial IVP 40 mg Q8HR MARIAELENA Administration Methylprednisolone Sodium Succinate 40 mg 02/05/24 09:00 02/05/24 08:15 Methylprednisolone Sod Succ/Pf 40 Mg/Ml Vial IVP 40 mg BID MARIAELENA Administration Non-Formulary Medication 1.25 mg 02/04/24 09:00 02/05/24 08:28 Conjugated Estrogens [Premarin] PO Not Given DAILY MARIAELENA Orphenadrine Citrate 60 mg 02/04/24 09:34 02/04/24 10:33 Orphenadrine Citrate 60 Mg/2 Ml Vial IVP 02/04/24 09:35 60 mg ONCE ONE Administration Oxycodone HCl 10 mg 02/03/24 22:12 02/05/24 03:16 Oxycodone Hcl 5 Mg Tablet PO 10 mg Q4-6H PRN Administration Pain Pantoprazole Sodium 40 mg 02/03/24 22:30 02/03/24 23:08 Pantoprazole Sodium 40 Mg Tablet. PO 40 mg DAILY MARIAELENA Administration Pantoprazole Sodium 40 mg 02/04/24 08:00 02/05/24 06:11 Pantoprazole Sodium 40 Mg Tablet. PO 40 mg QDAC2 MARIAELENA Administration Potassium Chloride 20 meq 02/04/24 09:00 02/05/24 08:17 Potassium Chloride 20 Meq Tab PO 20 meq DAILYWM2 MARIAELENA Administration Pregabalin 50 mg 02/04/24 09:00 02/05/24 08:16 Pregabalin 50 Mg Capsule PO 50 mg TID MARIAELENA Administration Ranolazine 1,000 mg 02/04/24 09:00 02/05/24 09:03 Ranolazine 500 Mg Tab.Er.12h PO 1,000 mg BID MARIAELENA Administration Solifenacin 10 mg 02/04/24 09:00 02/05/24 08:17 Solifenacin Succinate 5 Mg Tablet PO 10 mg DAILY MARIAELENA Administration Tizanidine HCl 4 mg 02/04/24 09:00 02/05/24 08:16 Tizanidine Hcl 4 Mg Tablet PO 4 mg BID MARIAELENA Administration Trazodone HCl 300 mg 02/03/24 22:12 02/04/24 20:05 Trazodone Hcl 50 Mg Tablet PO 300 mg BEDTIME PRN Administration Insomnia Vital Signs: Temp Pulse Resp BP Pulse Ox O2 Flow Rate 02/03/24 18:29 3 02/03/24 18:10 97.8 F 80 18 128/69 94 L MDM: patient is a 63 yo F here for multiple medical complainst, most chest and arm pain patient afebrile and vitally stable Hx from patient and chart review by me Exam concerning for COPD/pneumonia 3+ labs and 3 image results reviewed by me I consulted Hospitalist Team who agrees with admission WDX: Chest pain, arm pain, pneumonia VS COPD, hyperammonemia acute moderate complexity DDX: I considered stemi, sepsis, shock but these were not found Patient doing well, we discussed all findings and incidental findings Patient admitted stable Lactulose and Levaquin given here AIDE Risk Score AIDE Risk Score: Risk Score Odds of by 30D 0 0.1 (0.1-0.2) 1 0.3 (0.2-0.3) 2 0.4 (0.3-0.5) 3 0.7 (0.6-0.9) 4 1.2 (1.0-1.5) 5 2.2 (1.9-2.6) 6 3.0 (2.5-3.6) 7 4.8 (3.8-6.1) Physician Progress Note: [] Discharge Plan Discharge Patient Disposition: PLACED OBSERVATION Discharge Problem: Acute hyperglycemia, LAD (lymphadenopathy), Lung nodule, Hyperammonemia, Pneumonia Did you review [place] SPECIAL TESTER for ALL controlled substances?: Not Applicable ED Provider: AZALIA PANIAGUA Condition: Fair
[2024-02-03 19:05] LABS: TROPONIN I < 0.012 ng/ml (0.0000-0.120)
[2024-02-03 19:06] LABS: ABG O2 HGB 88.3 % (95-100); ABG PH 7.41 (7.35-7.45); COHb 8.1 (0.5-1.5); HCO3 33.6 (21-28); MetHb 1.1 (0-1.5); TCO2 35.2 (19-24); sO2 97.5 % (94-98); tHb 12.3 g/dl (11.7-17.4)
[2024-02-03 19:13] LABS: SARS COV-2 RNA RAPID NAAT NEGATIVE (NEGATIVE)
[2024-02-03 19:15] LABS: MOLECULAR FLU A NEGATIVE BY NAAT (NEGATIVE); MOLECULAR FLU B NEGATIVE BY NAAT (NEGATIVE)
[2024-02-03 19:50] LABS: THYROID STIMULATING HORMONE 0.715 uIU/L (0.465-4.68)
[2024-02-03 19:59] LABS: BILIRUBIN,URINE Negative (NEGATIVE); CLARITY,URINE Clear (CLEAR); COLOR,URINE Yellow (YELLOW); KETONES,URINE Negative (NEGATIVE); LEUKOCYTE ESTERASE ,URINE Negative (NEGATIVE); NITRITE,URINE Negative (NEGATIVE); PH,URINE 6.5 (5-9); PROTEIN,URINE 1+ (NEGATIVE); URINE, BLOOD Trace-intact (NEGATIVE)
[2024-02-03] MEDS: LACTULOSE PO ONE (20:00)
[2024-02-03 20:01] LABS: GLUCOSE, URINE (UA) 3+ (NEGATIVE)
[2024-02-03 20:09] LABS: BACTERIA,URINE TRACE (NOT PRESENT)
--- NOTE | 2024-02-03 20:17 | CT ---
EXAMINATION: HEAD CT WITHOUT CONTRAST HISTORY: Headache. TECHNIQUE: Noncontrast CT of the brain was performed with images acquired from skull base to vertex. 2-D coronal and sagittal reformatted images were obtained from the axial source images. Contrast Dose: None. CT Dose Reduction Techniques Performed: Yes. COMPARISON: 12/25/2020. FINDINGS: Topogram demonstrates no significant abnormality. Intraparenchymal hemorrhage: None. Parenchyma: Normal burgess-white differentiation. No mass effect or midline shift. Extra-axial spaces and basal cisterns: Normal. Ventricles: Normal size and morphology for age. Paranasal sinuses and mastoid air cells: Visualized portions of paranasal sinuses are clear. Mastoid air cells are clear. Orbits: Normal visualized portions. Sella/Skull Base: Normal. Other: Scalp and visualized soft tissues are normal. Calvarium is normal. IMPRESSION: 1. No intracranial hemorrhage. 2. Unremarkable noncontrast CT scan of the brain. All CT scans are performed using dose optimization techniques as appropriate to the performed exam an d include at least one of the following: Automated exposure control, adjustment of the mA and/or kV according t o size, and the use of iterative reconstruction technique.
--- NOTE | 2024-02-03 20:20 | CT ---
EXAM: CT OF THE ABDOMEN PELVIS WITHOUT CONTRAST History: Abdominal pain and back pain. Comparison: CT chest done on the same day, CT abdomen pelvis 02/23/2023 Technique: Multiplanar CT images through the abdomen pelvis were obtained without the administration of IV contrast FINDINGS: Lung bases are clear. No acute osseous abnormalities. Severe degenerative disc disease a t L5-S1. No renal stones and no hydronephrosis. Status post cholecystectomy. No liver or splenic lesions. No peripancreatic inflammation. Adrenal glands are unremarkable. No abdominal aortic aneurysm. Atherosclerotic vascular calcifications. Bl adder is not well distended. No bladder wall thickening. Previous hysterectomy. No bowel obstructi on. No perirectal inflammation. Scattered colonic stool. No evidence for appendicitis. No lymphad enopathy. No inflammatory stranding. No free air and no ascites. Impression: No acute intra-abdominal or pelvic process All CT scans are performed using dose optimization techniques as appropriate to the performed exam an d include at least one of the following: Automated exposure control, adjustment of the mA and/or kV according t o size, and the use of iterative reconstruction technique.
--- NOTE | 2024-02-03 20:35 | CT ---
EXAM: CHEST CT WITHOUT CONTRAST HISTORY: Chest pain. Smoker. TECHNIQUE: CT acquisition of the chest from the thoracic inlet to the upper abdomen without IV contra st administration. 2-D coronal and sagittal reformatted images were obtained from the axial source i mages. IV Contrast: None. CT Dose Reduction Techniques Performed: Yes. COMPARISON: Noncontrast CT scan of the chest dated 12/09/2023. FINDINGS: Lines, Tubes, Devices: None. Lung Parenchyma and Airways: Central airways are patent without endobronchial lesion. Mild patchy ai r space disease in the right upper lobe posteriorly consistent with pneumonia. Multiple irregular no dular opacities in the right upper lobe, larger than seen previously measuring between 0.7 cm and 1.5 cm. The lungs are otherwise clear. Pleural Space: No pleural effusion or thickening. No pneumothorax. Thoracic Inlet, Mediastinum, and Park: Thyroid gland is normal. No lymphadenopathy. Multiple small m iddle mediastinal lymph nodes, not enlarged by CT size criteria. Heart, Vessels, and Pericardium: The main pulmonary artery is normal caliber. The thoracic aorta is not dilated. Calcification in the aorta consistent with atherosclerosis. Coronary artery calcificat ion. The heart chambers are not enlarged. There is no pericardial effusion or thickening. Bones and Soft Tissues: No fracture, lytic lesion, or blastic lesion. Chest wall soft tissues are un remarkable. Upper Abdomen: The liver is partially visualized but probably enlarged. IMPRESSION: 1. Mild patchy air space disease in the right upper lobe posteriorly with multiple nodules at this s ite. These appear to be inflammatory/infectious. The appearance is worse than seen previously. [place] ropriate treatment and follow-up advised. 2. Small middle mediastinal lymph nodes, not enlarged by CT size criteria. 3. Atherosclerosis and coronary artery calcification. 4. Probable hepatomegaly. 5. Otherwise unremarkable noncontrast CT scan of the chest. All CT scans are performed using dose optimization techniques as appropriate to the performed exam an d include at least one of the following: Automated exposure control, adjustment of the mA and/or kV according t o size, and the use of iterative reconstruction technique.
[2024-02-03] MEDS: LEVAQUIN 750 MG/150 ML D5W 750 MG/150 ML BAG IV ONE (20:49)
[2024-02-03] MEDS: TORADOL IVP ONE (20:49)
[2024-02-03] MEDS: SODIUM CHLORIDE 1,000 ML IV SCH (21:39)
[2024-02-03 21:58] VITALS: BMI 39.6
[2024-02-03] MEDS ORDERED: VENTOLIN HFA IH PRN (22:12)
[2024-02-03] MEDS: HUMALOG SUBCUT PRN (23:07)
[2024-02-03] MEDS: OXYCODONE PO PRN (23:08)
[2024-02-03] MEDS: COZAAR PO SCH (23:08)
[2024-02-03] MEDS: PLAVIX PO SCH (23:08)
[2024-02-03] MEDS: DESYREL PO PRN (23:08)
[2024-02-03] MEDS: PROTONIX PO SCH (23:08)
[2024-02-04 05:06] LABS: BASOPHILS % (AUTO) 0.4 % (0.0-3.0); EOSINOPHILS # (AUTO) 0.1 K/ul (0.0-0.7); EOSINOPHILS % (AUTO) 1.9 % (0.0-7.0); HEMOGLOBIN 11.4 g/dl (12.0-16.0); IMMATURE GRANULOCYTE % (AUTO) 0.3 % (0.0-5.0); LYMPHOCYTES # (AUTO) 2.3 K/uL (0.60-3.4); LYMPHOCYTES % (AUTO) 34.2 (10.0-50.0); MEAN CORPUSCULAR HEMOGLOBIN 30.3 pg (27.0-31.0); MEAN CORPUSCULAR HGB CONC 32.6 (31.8-35.4); MEAN CORPUSCULAR VOLUME 93.1 fl (81.0-99.0); MONOCYTES # (AUTO) 1.1 K/uL (0.4-2.0); MONOCYTES % (AUTO) 15.7 (0-10); NEUTROPHILS # (AUTO) 3.2 K/ul (2.0-6.9); NEUTROPHILS % (AUTO) 47.5 % (42.2-75.2); PLATELET COUNT 181 10^3/uL (140-440); RDW COEFFICIENT OF VARIATION 14.3 % (11.6-14.8); RED BLOOD COUNT 3.76 10^6/ul (4.20-5.40)
[2024-02-04 05:41] LABS: ALANINE AMINOTRANSFERASE 15.7 U/L (0-35); ALBUMIN 3.19 g/dL (3.5-5.0); ALKALINE PHOSPHATASE 82.9 U/L (53-141); ASPARTATE AMINO TRANSFERASE 27.4 U/L (14-36); BILIRUBIN,TOTAL 0.55 mg/dL (0.2-1.3); BLOOD UREA NITROGEN 16.3 mg/dL (7-17); CALCIUM 8.68 mg/dL (8.4-10.2); CARBON DIOXIDE 28.8 mmol/L (22-30.0); CHLORIDE 103.7 mmol/L (98-107); CREATININE 0.49 mg/dL (0.60-1.30); GLUCOSE 183.2 mg/dL (74-106); POTASSIUM 3.81 mmol/L (3.5-5.1); SODIUM 136.3 mmol/L (134.5-145); TOTAL PROTEIN 6.19 g/dL (6.3-8.2)
[2024-02-04] MEDS: LYRICA PO SCH (08:23)
[2024-02-04] MEDS: ZANAFLEX PO SCH (08:23)
[2024-02-04] MEDS: TAPAZOLE PO SCH (08:23)
[2024-02-04] MEDS: RANEXA PO SCH (08:23)
[2024-02-04] MEDS: TRIGLIDE PO SCH (08:24)
[2024-02-04] MEDS: VESICARE PO SCH (08:24)
[2024-02-04] MEDS: LANTUS SUBCUT SCH (08:24)
[2024-02-04] MEDS: PROZAC PO SCH (08:24)
[2024-02-04] MEDS: LASIX TAB PO SCH (09:24)
[2024-02-04] MEDS: ASPIRIN CHEWABLE PO SCH (09:24)
[2024-02-04] MEDS: K-DUR PO SCH (09:25)
[2024-02-04] MEDS: MOBIC PO SCH (09:25)
[2024-02-04] MEDS: PROTONIX PO SCH (09:25)
[2024-02-04] MEDS: NORFLEX IVP ONE (10:33)
[2024-02-04] MEDS: SOLU-MEDROL 40 MG IVP SCH (10:33)
[2024-02-04] MEDS: TORADOL IVP ONE (10:33)
[2024-02-04] MEDS: LACTULOSE PO ONE (10:33)
[2024-02-04] MEDS: CONJUGATED ESTROGENS 1.25 MG PO SCH (10:34)
--- NOTE | 2024-02-04 10:40 | PCM ---
Date of Service Date Seen by Provider: 02/04/24 Time Seen by Provider: 09:00 Admit Day/Time Admission Date: 02/03/24 Reason for Admission Chief Complaint: ELEVATED AMMONIA,PNEUMONIA Hospital Provider Hospital Provider: AZALIA PANIAGUA DO [facility] Primary Care Physician Primary Care Physician: DAJA AGUERO History of Present Illness History of Present Illness: 63 yo female presented to the ER with complaints of chest pain, L shoulder pain, dizziness, slurred speech, and fatigue. States the symptoms came on suddenly while at a local store. States all symptoms have resolved overnight except L shoulder pain. Dizziness was exacerbated with movement. L shoulder pain persists with pmh of arthritis. Denies any injury to the area. Feels as if the muscle is tight. Patient has pmh of copd on chronic O2 @ 3L. Not requiring additional O2 at this time. CT head completed and negative. Troponins negative. EKG sinus without acute changes. Labs unremarkable except ammonia level elevated in 40s. Has pmh of cirrhosis. Given 1 dose of lactulose in ER. CT chest completed and showed bilateral infiltrates. Started on levaquin. Admitted to med/surg observation. Case Discussed With Case Discussed With: Patient's case was discussed with the ER Physicians, Dr. Paniagua. [facility] Medical History Memory deficit IS GOING TO [facility] ON 07/18 TO HAVE A [address] TEST PER DR. UPTON/PATIENT. R41.3 - Other amnesia (ICD-10) Anxiety F41.9 - Anxiety disorder, unspecified (ICD-10) Depression F32.9 - Major depressive disorder, single episode, unspecified (ICD-10) Asthma J45.909 - Unspecified asthma, uncomplicated (ICD-10) Panic attacks F41.0 - Panic disorder [episodic paroxysmal anxiety] (ICD-10) Radicular pain of upper extremity M54.10 - Radiculopathy, site unspecified (ICD-10) Surgical History H/O heart artery stent Z95.5 - Presence of coronary angioplasty implant and graft (ICD-10) Family History Mother Cancer brain Diabetes Alcoholism FATHER Heart attack Alcoholism BROTHER Brain injury hit by car at age 3 Heart attack BROTHER Overdose BROTHER Hepatitis C BROTHER Hepatitis C SISTER Heart attack Social History Smoking and tobacco status: Former smoker Quit status: has quit before Alcohol intake: never Substance use type: does not use Kenzie/christian: SCIENTOLOGY Special kenzie needs: No Agree to transfusion: Yes Adopted: No Caregiver/support person: No Household members: none Housing: house Marital status: D Lives independently: Yes Number of children: 5 Number of grandchildren: 12 Highest education level completed: 3rd grade Financial difficulty paying for basics: not very hard service: No residential: No Current occupational status: disabled Current occupational exposures/hazards: No Pets and animals: Yes (dog ) History of recent travel: No Sexually active: No Do you think of yourself as: straight/heterosexual Current gender identity: female Seatbelt use: always Drives intoxicated or rides with intoxicated class c truck driver: No Water heater temperature set < 120 degrees: Yes Working smoke detector in home: Yes Fire extinguisher in home: Yes Carbon monoxide detector in home: Yes Firearms in home: No Allergies Allergies Allergy/AdvReac Type Severity Reaction Status Date / Time amitriptyline AdvReac hallucinati Verified 02/03/24 18:16 ons cephalexin AdvReac Unknown Verified 02/03/24 18:16 clindamycin AdvReac Unknown Verified 02/03/24 18:16 codeine AdvReac Nausea Verified 02/03/24 18:16 Iodinated Contrast Media AdvReac SOB Verified 02/03/24 18:16 [Iodinated Contrast- Oral and IV Dye] nortriptyline AdvReac hallucinati Verified 02/03/24 18:16 ons Current Medications Home Medications aspirin 81 mg chewable tablet 81 mg PO DAILYWM 10/16/14 [History Confirmed 02/03/24 Last Taken 09/17/15] conjugated estrogens 1.25 mg tablet (Premarin) 1.25 mg PO DAILY 04/07/15 [History Confirmed 02/03/24 Last Taken 09/17/15] albuterol sulfate 90 mcg/actuation aerosol inhaler (ProAir HFA) 2 puff inhalation Q6H PRN SOB/WHEEZING 08/21/15 [History Confirmed 02/03/24 Last Taken 09/17/15] atorvastatin 80 mg tablet 80 mg PO BEDTIME 02/09/18 [History Confirmed 02/03/24 Last Taken Unknown] ranolazine 500 mg tablet,extended release,12 hr (Ranexa) 1,000 mg PO BID 02/09/18 [History Confirmed 02/03/24 Last Taken Unknown] clopidogrel 75 mg tablet 75 mg PO QDAY 01/08/21 [History Confirmed 02/03/24 Last Taken Unknown] fenofibrate nanocrystallized 145 mg tablet 145 mg PO QDAY 01/08/21 [History Confirmed 02/03/24 Last Taken Unknown] losartan 25 mg tablet 25 mg PO QDAY 01/08/21 [History Confirmed 02/03/24 Last Taken Unknown] pantoprazole 40 mg tablet,delayed release 40 mg PO QDAY 01/08/21 [History Confirmed 02/03/24 Last Taken Unknown] tizanidine 2 mg capsule 4 mg PO BID 04/26/21 [History Confirmed 02/03/24 Last Taken Unknown] oxycodone 10 mg tablet 10 mg PO Q4-6H PRN Pain 09/26/21 [History Confirmed 02/03/24 Last Taken Unknown] magnesium oxide 400 mg (241.3 mg magnesium) tablet 800 mg PO MOWEFR 01/29/22 [History Confirmed 02/03/24 Last Taken Unknown] pregabalin 50 mg capsule (Lyrica) 50 mg PO TID 05/08/22 [History Confirmed 02/03/24 Last Taken Unknown] insulin glargine 100 unit/mL (3 mL) subcutaneous pen (Lantus Solostar U-100 Insulin) 50 unit subcut BID 06/26/22 [History Confirmed 02/03/24 Last Taken Unknown] methimazole 5 mg tablet 2.5 mg PO DAILY 06/26/22 [History Confirmed 02/03/24 Last Taken Unknown] donepezil 5 mg tablet 5 mg PO DAILY 11/13/22 [History Confirmed 02/03/24 Last Taken Unknown] furosemide 40 mg tablet 40 mg PO DAILY 11/13/22 [History Confirmed 02/03/24 Last Taken Unknown] insulin lispro 100 unit/mL subcutaneous pen (Admelog SoloStar U-100 Insulin lispro) 20 - 30 unit subcut ACHS 11/13/22 [History Confirmed 02/03/24 Last Taken Unknown] magnesium oxide 400 mg PO SUTUTHSA 11/13/22 [History Confirmed 02/03/24 Last Taken Unknown] potassium chloride 20 mEq tablet,extended release(part/cryst) 20 meq PO DAILY 11/13/22 [History Confirmed 02/03/24 Last Taken Unknown] solifenacin 10 mg tablet 10 mg PO DAILY 11/13/22 [History Confirmed 02/03/24 Last Taken Unknown] meloxicam 15 mg tablet 15 mg PO DAILY #30 tabs 01/20/23 [Rx Confirmed 02/03/24 Last Taken Unknown] fluoxetine 40 mg capsule 80 mg (2 x 40 mg) PO QAM 30 days #60 caps 02/12/23 [Rx Confirmed 02/03/24 Last Taken Unknown] trazodone 300 mg tablet 300 mg PO QHS PRN insomnia #30 tabs 02/12/23 [Rx Confirmed 02/03/24 Last Taken Unknown] Home Albuterol Sulfate (Albuterol Sulfate 8 Gm Inhaler) 2 puff IH Q6H PRN PRN Reason: Wheezing Albuterol/Ipratropium (Ipratropium/Albuterol Vial.Neb) 3 ml NEB RTQ4H MARIAELENA Aspirin (Aspirin 81 Mg Tab.Chew) 81 mg PO DAILYWM2 MARIAELENA Last Admin: 02/04/24 09:24 Dose: 81 mg Atorvastatin Calcium (Atorvastatin Calcium 20 Mg Tablet) 80 mg PO BEDTIME MARIAELENA Clopidogrel Bisulfate (Clopidogrel Bisulfate 75 Mg Tablet) 75 mg PO DAILY MARIAELENA Last Admin: 02/04/24 08:24 Dose: 75 mg Donepezil HCl (Donepezil Hcl 10 Mg Tablet) 5 mg PO BEDTIME MARIAELENA Fenofibrate (Fenofibrate 160 Mg Tablet) 160 mg PO DAILY MARIAELENA Last Admin: 02/04/24 08:24 Dose: 160 mg Fluoxetine HCl (Fluoxetine Hcl 20 Mg Capsule) 80 mg PO QAM [facility] Last Admin: 02/04/24 08:24 Dose: 80 mg Furosemide (Furosemide 40 Mg Tablet) 40 mg PO QDAC2 [facility] Last Admin: 02/04/24 09:24 Dose: 40 mg Levofloxacin/Dextrose (Levaquin 750 Mg/150 Ml D5w) 750 mg in 150 mls @ 100 mls/hr IV BEDTIME MARIAELENA Stop: 02/07/24 20:59 Sodium Chloride (Sodium Chloride) 1,000 mls @ 75 mls/hr IV .[id number] [facility] Last Admin: 02/04/24 10:59 Dose: 75 mls/hr Insulin Glargine (Insulin Glargine,Hum.Rec.Anlog 100 Units/Ml) 50 unit SUBCUT BID [facility] Last Admin: 02/04/24 08:24 Dose: 50 unit Insulin Human Lispro (Insulin Lispro 100 Unit/Ml Vial) 0 unit SUBCUT PRN PRN; Protocol PRN Reason: Hyperglycemia Last Admin: 02/04/24 06:16 Dose: 4 unit Losartan Potassium (Losartan Potassium 25 Mg Tablet) 25 mg PO DAILY [facility] Last Admin: 02/04/24 08:24 Dose: 25 mg Magnesium Oxide (Magnesium Oxide 400 Mg Tablet) 800 mg PO MOWEFR [facility] Meloxicam (Meloxicam 7.5 Mg Tablet) 15 mg PO DAILYWM2 [facility] Last Admin: 02/04/24 09:25 Dose: 15 mg Methimazole (Methimazole 10 Mg Tablet) 2.5 mg PO DAILY [facility] Last Admin: 02/04/24 08:23 Dose: 2.5 mg Methylprednisolone Sodium Succinate (Methylprednisolone Sod Succ/Pf 40 Mg/Ml Vial) 40 mg IVP Q8HR [facility] Last Admin: 02/04/24 10:33 Dose: 40 mg Non-Formulary Medication (Conjugated Estrogens [Premarin]) 1.25 mg PO DAILY [facility] Last Admin: 02/04/24 10:34 Dose: Not Given Oxycodone HCl (Oxycodone Hcl 5 Mg Tablet) 10 mg PO Q4-6H PRN PRN Reason: Pain Last Admin: 02/03/24 23:08 Dose: 10 mg Pantoprazole Sodium (Pantoprazole Sodium 40 Mg Tablet.Dr) 40 mg PO QDAC2 [facility] Last Admin: 02/04/24 09:25 Dose: 40 mg Potassium Chloride (Potassium Chloride 20 Meq Tab) 20 meq PO DAILYWM2 [facility] Last Admin: 02/04/24 09:25 Dose: 20 meq Pregabalin (Pregabalin 50 Mg Capsule) 50 mg PO TID [facility] Last Admin: 02/04/24 08:23 Dose: 50 mg Ranolazine (Ranolazine 500 Mg Tab.Er.12h) 1,000 mg PO BID [facility] Last Admin: 02/04/24 08:23 Dose: 1,000 mg Solifenacin (Solifenacin Succinate 5 Mg Tablet) 10 mg PO DAILY [facility] Last Admin: 02/04/24 08:24 Dose: 10 mg Tizanidine HCl (Tizanidine Hcl 4 Mg Tablet) 4 mg PO BID [facility] Last Admin: 02/04/24 08:23 Dose: 4 mg Trazodone HCl (Trazodone Hcl 50 Mg Tablet) 300 mg PO BEDTIME PRN PRN Reason: Insomnia Last Admin: 02/03/24 23:08 Dose: 300 mg Discontinued Medications Aspirin (Aspirin 81 Mg Tab.Chew) 324 mg PO ONCE ONE Stop: 02/03/24 18:29 Last Admin: 02/03/24 18:34 Dose: 324 mg Levofloxacin/Dextrose (Levaquin 750 Mg/150 Ml D5w) 750 mg in 150 mls @ 100 mls/hr IV ONCE ONE Stop: 02/03/24 22:08 Last Admin: 02/03/24 20:49 Dose: 100 mls/hr Ketorolac Tromethamine (Ketorolac Tromethamine 15 Mg/Ml Vial) 15 mg IVP ONCE ONE Stop: 02/03/24 20:44 Last Admin: 02/03/24 20:49 Dose: 15 mg Ketorolac Tromethamine (Ketorolac Tromethamine 30 Mg/Ml Vial) 30 mg IVP ONCE ONE Stop: 02/04/24 09:35 Last Admin: 02/04/24 10:33 Dose: 30 mg Lactulose (Lactulose 20 Gm/30 Ml Cup) 20 gm PO ONCE ONE Stop: 02/03/24 19:53 Last Admin: 02/03/24 20:00 Dose: 20 gm Lactulose (Lactulose 20 Gm/30 Ml Cup) 20 gm PO ONCE ONE Stop: 02/04/24 09:35 Last Admin: 02/04/24 10:33 Dose: 20 gm Orphenadrine Citrate (Orphenadrine Citrate 60 Mg/2 Ml Vial) 60 mg IVP ONCE ONE Stop: 02/04/24 09:35 Last Admin: 02/04/24 10:33 Dose: 60 mg Pantoprazole Sodium (Pantoprazole Sodium 40 Mg Tablet.Dr) 40 mg PO DAILY [facility] Last Admin: 02/03/24 23:08 Dose: 40 mg Opioid Naive vs. Tolerant What is Opioid Naive?: *Opioid Naive implies the patient is not already taking opioids or not chronically receiving opioids on a daily basis. *PRN dosing is not "usually" associated with tolerance. *Patients are at higher risk of over-sedation and aspiration. What is Opioid Tolerant?: *Opioid Tolerance implies less than the expected response to an opioid. *Acquired tolerance is defined by the patient taking 60mg of oral morphine daily (or equianalgesic dose of another opioid) for 1 week or more. *Often associated with chronic pain. *May take more than usual dose to achieve desired pain control. Review of Systems Constitutional: Reports Fatigue Head: Reports Normocephalic Eyes: Reports No symptoms Ears: Reports No symptoms Nose: Reports No symptoms Mouth: Reports No symptoms Throat: Reports No symptoms Cardiovascular: Reports Chest pain and Left arm pain Respiratory: Reports No symptoms Gastrointestinal: Reports No symptoms Genitourinary: Reports No Symptoms Musculoskeletal: Reports No symptoms Endocrine: Reports No symptoms Hematology: Reports No symptoms Neurological: Reports Dizziness and Speech difficulty Psychiatric: Reports No symptoms Physical examination Most Recent Vital Signs: Most Recent Vital Signs Temperature 97.8 F 02/04/24 05:15 Temperature Source Temporal Artery Scan 02/04/24 05:15 Temperature Source Temporal Artery Scan 02/03/24 21:20 Pulse Rate 77 02/04/24 05:15 Respiratory Rate 18 02/04/24 05:15 Blood Pressure 118/71 02/04/24 05:15 Blood Pressure Mean 86 02/04/24 05:15 Blood Pressure Left Arm 116/73 02/03/24 21:40 Blood Pressure Location Right Arm 02/04/24 05:15 Blood Pressure Position Supine 02/04/24 05:15 O2 Sat by Pulse Oximetry 96 02/04/24 05:15 Oxygen Delivery Method Nasal Cannula 02/04/24 10:00 Oxygen Flow Rate 3 02/04/24 08:00 Height 5 ft 6 in 02/03/24 21:40 Weight 245 lb 9.6 oz 02/03/24 21:40 Telemetry Type Remote Telemetry 02/04/24 07:00 Telemetry Monitoring Continues 02/04/24 07:00 Telemetry Heart Rate 80 02/04/24 07:00 Telemetry SPO2 95 02/04/24 07:00 EKG RI Interval 0.20 02/04/24 07:00 EKG QRS Interval 0.08 02/04/24 07:00 Telemetry Strip Reading SR 02/04/24 07:00 Appearance: Positive No Apparent Distress, Alert and Oriented x3, Ill-Appearing and Obese Skin: Positive Warm and Good Turgor HEENT: Positive Normocephalic and PERRLA Neck: Positive Supple and Midline Trachea Chest/Lungs: Positive Symmetrical With Equal Breath Sounds and Wheezes (expiratory in all lung alvarez, diminished) Heart: Positive RRR and Pulses Normal GI/: Positive Soft, Nontender and Bowel Sounds Normal Musculoskeletal: Positive Not Examined Extremities: Positive Intact Peripheral Pulses, Stable Joints Without Laxity and Good ROM in All Joints Neurological: Positive Sensation Intact, Motor intact, Alert, Oriented and Other (generalized weakness) Labs This Visit Labs This Visit: Labs This Visit 02/03/24 02/03/24 02/03/24 18:28 18:29 18:45 WBC 8.84 RBC 4.10 L Hgb 12.2 Hct 37.4 MCV 91.2 MCH 29.8 MCHC 32.6 RDW Coeff of Wilson 14.3 Plt Count 206 Immature Gran % (Auto) 0.3 Neut % (Auto) 57.3 Lymph % (Auto) 26.6 Mcmullen % (Auto) 14.1 H Eos % (Auto) 1.2 Baso % (Auto) 0.5 Neut # (Auto) 5.1 Lymph # (Auto) 2.4 Mcmullen # (Auto) 1.3 Eos # (Auto) 0.1 Baso # (Auto) 0.0 Immature Gran # (Auto) 0.0 Puncture Site Base Excess O2 Saturation ABG pH ABG pCO2 ABG pO2 ABG HCO3 ABG Total CO2 Grzegorz Test Hemoglobin Oxyhemoglobin Carboxyhemoglobin Total Hemoglobin O2 Delivery Device Oxygen Liter Flow Sodium 133.6 L Potassium 3.71 Chloride 99.8 Carbon Dioxide 28.4 Anion Gap 9.11 BUN 17.4 H Creatinine 0.56 L Estimated GFR (MDRD) 109.00 BUN/Creatinine Ratio 31.07 Glucose 286.6 H Lactic Acid 1.49 Calcium 8.94 Total Bilirubin 0.49 AST 24.6 ALT 16.3 Alkaline Phosphatase 98.0 Ammonia Troponin I < 0.012 Total Protein 6.64 Albumin 3.54 Globulin 3.10 Albumin/Globulin Ratio 1.14 Lipase 67.0 Procalcitonin TSH 0.715 Free T4 1.10 Urine Color Urine Clarity Urine pH Ur Specific [place] Urine Protein Urine Glucose (UA) Urine Ketones Urine Blood Urine Nitrite Urine Bilirubin Urine Urobilinogen Ur Leukocyte Esterase Urine Microscopic RBC Ur Squamous Epith Cells Urine Bacteria Acetone, Qual None Influ A Molecular Assay Negative by naat Influ B Molecular Assay Negative by naat SARS CoV-2 RNA Rapid SAMANTHA Negative 02/03/24 02/03/24 02/03/24 18:52 18:59 19:55 WBC RBC Hgb Hct MCV MCH MCHC RDW Coeff of Wilson Plt Count Immature Gran % (Auto) Neut % (Auto) Lymph % (Auto) Mcmullen % (Auto) Eos % (Auto) Baso % (Auto) Neut # (Auto) Lymph # (Auto) Mcmullen # (Auto) Eos # (Auto) Baso # (Auto) Immature Gran # (Auto) Puncture Site L radial Base Excess 9.0 H O2 Saturation 97.5 ABG pH 7.41 ABG pCO2 53.0 H ABG pO2 95.0 ABG HCO3 33.6 H ABG Total CO2 35.2 H Grzegorz Test + Hemoglobin 1.1 Oxyhemoglobin 88.3 L Carboxyhemoglobin 8.1 H Total Hemoglobin 12.3 O2 Delivery Device Cannula Oxygen Liter Flow 3.00 Sodium Potassium Chloride Carbon Dioxide Anion Gap BUN Creatinine Estimated GFR (MDRD) BUN/Creatinine Ratio Glucose Lactic Acid Calcium Total Bilirubin AST ALT Alkaline Phosphatase Ammonia 41.7 H Troponin I Total Protein Albumin Globulin Albumin/Globulin Ratio Lipase Procalcitonin TSH Free T4 Urine Color Yellow Urine Clarity Clear Urine pH 6.5 Ur Specific [place] 1.015 Urine Protein 1+ H Urine Glucose (UA) 3+ H Urine Ketones Negative Urine Blood Trace-intact H Urine Nitrite Negative Urine Bilirubin Negative Urine Urobilinogen 2.0 H Ur Leukocyte Esterase Negative Urine Microscopic RBC 2-5 Ur Squamous Epith Cells 5-10 Urine Bacteria Trace Acetone, Qual Influ A Molecular Assay Influ B Molecular Assay SARS CoV-2 RNA Rapid SAMANTHA 02/03/24 02/04/24 02/04/24 20:02 00:40 05:01 WBC 6.70 RBC 3.76 L Hgb 11.4 L Hct 35.0 L MCV 93.1 MCH 30.3 MCHC 32.6 RDW Coeff of Wilson 14.3 Plt Count 181 Immature Gran % (Auto) 0.3 Neut % (Auto) 47.5 Lymph % (Auto) 34.2 Mcmullen % (Auto) 15.7 H Eos % (Auto) 1.9 Baso % (Auto) 0.4 Neut # (Auto) 3.2 Lymph # (Auto) 2.3 Mcmullen # (Auto) 1.1 Eos # (Auto) 0.1 Baso # (Auto) 0.0 Immature Gran # (Auto) 0.0 Puncture Site Base Excess O2 Saturation ABG pH ABG pCO2 ABG pO2 ABG HCO3 ABG Total CO2 Grzegorz Test Hemoglobin Oxyhemoglobin Carboxyhemoglobin Total Hemoglobin O2 Delivery Device Oxygen Liter Flow Sodium 136.3 Potassium 3.81 Chloride 103.7 Carbon Dioxide 28.8 Anion Gap 7.61 BUN 16.3 Creatinine 0.49 L Estimated GFR (MDRD) 128.00 BUN/Creatinine Ratio 33.26 Glucose 183.2 H D Lactic Acid Calcium 8.68 Total Bilirubin 0.55 AST 27.4 ALT 15.7 Alkaline Phosphatase 82.9 Ammonia 20.7 30.3 H Troponin I < 0.012 < 0.012 Total Protein 6.19 L Albumin 3.19 L Globulin 3.00 Albumin/Globulin Ratio 1.06 Lipase Procalcitonin < 0.05 TSH Free T4 Urine Color Urine Clarity Urine pH Ur Specific [place] Urine Protein Urine Glucose (UA) Urine Ketones Urine Blood Urine Nitrite Urine Bilirubin Urine Urobilinogen Ur Leukocyte Esterase Urine Microscopic RBC Ur Squamous Epith Cells Urine Bacteria Acetone, Qual Influ A Molecular Assay Influ B Molecular Assay SARS CoV-2 RNA Rapid SAMANTHA Imaging Imaging: EXAM: CHEST CT WITHOUT CONTRAST FINDINGS: Lines, Tubes, Devices: None. Lung Parenchyma and Airways: Central airways are patent without endobronchial lesion. Mild patchy air space disease in the right upper lobe posteriorly consistent with pneumonia. Multiple irregular nodular opacities in the right upper lobe, larger than seen previously measuring between 0.7 cm and 1.5 cm. The lungs are otherwise clear. Pleural Space: No pleural effusion or thickening. No pneumothorax. Thoracic Inlet, Mediastinum, and Park: Thyroid gland is normal. No lymphadenopathy. Multiple small middle mediastinal lymph nodes, not enlarged by CT size criteria. Heart, Vessels, and Pericardium: The main pulmonary artery is normal caliber. The thoracic aorta is not dilated. Calcification in the aorta consistent with atherosclerosis. Coronary artery calcification. The heart chambers are not enlarged. There is no pericardial effusion or thickening. Bones and Soft Tissues: No fracture, lytic lesion, or blastic lesion. Chest wall soft tissues are unremarkable. Upper Abdomen: The liver is partially visualized but probably enlarged. IMPRESSION: 1. Mild patchy air space disease in the right upper lobe posteriorly with multiple nodules at this site. These appear to be inflammatory/infectious. The appearance is worse than seen previously. Appropriate treatment and follow-up advised. 2. Small middle mediastinal lymph nodes, not enlarged by CT size criteria. 3. Atherosclerosis and coronary artery calcification. 4. Probable hepatomegaly. 5. Otherwise unremarkable noncontrast CT scan of the chest. Review Statement Review Statement: I have independently reviewed and interpreted the labs/EKGs/imaging that were ordered by the ER provider. I have reviewed all outside records that are available currently in our EMR including imaging/notes/labs from previous visits. Plan Plan: 1. Community Acquired Pneumonia vs COPD exacerbation - levaquin Q24H, steroids, nebs 2. Hyperammonemia - Received 1 dose of lactulose in ER, trended down to 30, gave additional dose of lactulose, trend and will treat if needed 3. Chest pain - serial troponins negative, EKG negative, chest pain resolved 4. DM2 - ADA diet, accuchecks with ssi, continue home insulin 5. Hypertension - chronic, continue home medications DVT Prophylaxis: Plavix Time Spent: Greater than 80 minutes spent with patient, 50% of the time spent with this patient was devoted to counseling and coordination of care. Advanced Care Plannin minutes spent discussing advance care planning. Disposition: Admit to: Med/Surg Observation DNI, CPR only Discussed Plan of Care with Dr. Azael Nguyen. Medications Medication Orders: Medications Ordered Category Date Time Status Albuterol Sulfate [Ventolin Hfa] Meds 02/03/24 22:12 Active 2 puff IH Q6H PRN Aspirin [Aspirin Chewable] Meds 02/04/24 07:30 Active 81 mg PO DAILYWM2 Atorvastatin Calcium [Lipitor] Meds 02/04/24 21:00 Active 80 mg PO BEDTIME Clopidogrel Bisulfate [Plavix] Meds 02/03/24 22:30 Active 75 mg PO DAILY Donepezil HCl [Aricept] Meds 02/04/24 21:00 Active 5 mg PO BEDTIME Fenofibrate [Triglide] Meds 02/04/24 09:00 Active 160 mg PO DAILY Fluoxetine HCl [Prozac] Meds 02/04/24 09:00 Active 80 mg PO QAM Furosemide [Lasix Tab] Meds 02/04/24 09:00 Active 40 mg PO QDAC2 Insulin Glargine,Hum.rec.anlog [Lantus] Meds 02/04/24 09:00 Active 50 unit SUBCUT BID Insulin Lispro [Humalog] Meds 02/03/24 22:16 Active See Protocol SUBCUT PRN PRN Levofloxacin/D5w [Levaquin 750 mg/150 ml D5w] Meds 02/04/24 21:00 Active 750 mg in 150 ml IV BEDTIME Losartan Potassium [Cozaar] Meds 02/03/24 22:30 Active 25 mg PO DAILY Magnesium Oxide [Mag-Ox] Meds 02/04/24 22:12 Active 800 mg PO MOWEFR Meloxicam [Mobic] Meds 02/04/24 07:30 Active 15 mg PO DAILYWM2 Methimazole [Tapazole] Meds 02/04/24 09:00 Active 2.5 mg PO DAILY Methylprednisolone Sod Succ/Pf [Solu-Medrol 40 mg] Meds 02/04/24 09:35 Active 40 mg IVP Q8HR Oxycodone HCl [Oxycodone] Meds 02/03/24 22:12 Active 10 mg PO Q4-6H PRN Pantoprazole Sodium [Protonix] Meds 02/04/24 08:00 Active 40 mg PO QDAC2 Potassium Chloride [K-Dur] Meds 02/04/24 09:00 Active 20 meq PO DAILYWM2 Pregabalin [Lyrica] Meds 02/04/24 09:00 Active 50 mg PO TID Ranolazine [Ranexa] Meds 02/04/24 09:00 Active 1,000 mg PO BID Sodium Chloride 0.9% [Sodium Chloride] 1,000 ml Meds 02/03/24 21:00 Active IV 75 mls/hr Solifenacin Succinate [Vesicare] Meds 02/04/24 09:00 Active 10 mg PO DAILY Tizanidine HCl [Zanaflex] Meds 02/04/24 09:00 Active 4 mg PO BID Trazodone HCl [Desyrel] Meds 02/03/24 22:12 Active 300 mg PO BEDTIME PRN conjugated estrogens [Premarin] Meds 02/04/24 09:00 Active 1.25 mg PO DAILY
[2024-02-04] MEDS: DUONEB NEB SCH (14:12)
[2024-02-04] MEDS: LIPITOR PO SCH (20:05)
[2024-02-04] MEDS: LEVAQUIN 750 MG/150 ML D5W 750 MG/150 ML BAG IV SCH (20:05)
[2024-02-04] MEDS: ARICEPT PO SCH (20:06)
[2024-02-04] MEDS: MAG-OX PO SCH (21:14)
[2024-02-04 21:23] VITALS: TEMP 97.5
[2024-02-05 05:09] LABS: BASOPHILS % (AUTO) 0.1 % (0.0-3.0); EOSINOPHILS % (AUTO) 0.3 % (0.0-7.0); HEMATOCRIT 34.7 % (37.0-47.0); HEMOGLOBIN 11.1 g/dl (12.0-16.0); IMMATURE GRANULOCYTE % (AUTO) 0.3 % (0.0-5.0); LYMPHOCYTES # (AUTO) 1.8 K/uL (0.60-3.4); LYMPHOCYTES % (AUTO) 24.6 (10.0-50.0); MEAN CORPUSCULAR HEMOGLOBIN 30.1 pg (27.0-31.0); MONOCYTES # (AUTO) 0.8 K/uL (0.4-2.0); MONOCYTES % (AUTO) 11.5 (0-10); NEUTROPHILS # (AUTO) 4.6 K/ul (2.0-6.9); NEUTROPHILS % (AUTO) 63.2 % (42.2-75.2); PLATELET COUNT 191 10^3/uL (140-440); RDW COEFFICIENT OF VARIATION 14.2 % (11.6-14.8); RED BLOOD COUNT 3.69 10^6/ul (4.20-5.40); WHITE BLOOD COUNT 7.32 K/ul (4.6-10.2)
[2024-02-05 05:27] LABS: ALANINE AMINOTRANSFERASE 17.5 U/L (0-35); ALBUMIN 3.3 g/dL (3.5-5.0); ALKALINE PHOSPHATASE 88.6 U/L (53-141); ASPARTATE AMINO TRANSFERASE 25.3 U/L (14-36); BILIRUBIN,TOTAL 0.38 mg/dL (0.2-1.3); BLOOD UREA NITROGEN 15.2 mg/dL (7-17); CALCIUM 8.76 mg/dL (8.4-10.2); CHLORIDE 101.9 mmol/L (98-107); CREATININE 0.49 mg/dL (0.60-1.30); GLUCOSE 256.8 mg/dL (74-106); POTASSIUM 3.88 mmol/L (3.5-5.1); TOTAL PROTEIN 6.33 g/dL (6.3-8.2)
[2024-02-05 05:29] VITALS: BP 121/61; RESP 18
[2024-02-05] MEDS: SOLU-MEDROL 40 MG IVP SCH (08:15)
[2024-02-05 08:57] VITALS: PULSE 80
--- NOTE | 2024-02-05 09:01 | DCSUM ---
Admission Date Admission Date: 02/03/24 Discharge Date Discharge Date: 02/05/24 Admission Diagnosis Admission Diagnosis: 1. Community Acquired Pneumonia vs COPD exacerbation 2. Hyperammonemia 3. Chest pain 4. DM2 5. Hypertension Discharge Diagnosis Discharge Diagnosis: 1. Community Acquired Pneumonia vs COPD exacerbation - Improving 2. Hyperammonemia - Resolved 3. Chest pain - Resolved 4. DM2 - Chronic, stable 5. Hypertension - Chronic, stable Hospital Provider Hospital Provider: AZALIA PANIAGUA DO, [facility] Primary [facility] Physician Primary Care Physician: DAJA AGUERO Summary of History and Physical Summary of History and Physical: 63 yo female presented to the ER with complaints of chest pain, L shoulder pain, dizziness, slurred speech, and fatigue. States the symptoms came on suddenly while at a local store. States all symptoms have resolved overnight except L shoulder pain. Dizziness was exacerbated with movement. L shoulder pain persists with pmh of arthritis. Denies any injury to the area. Feels as if the muscle is tight. Patient has pmh of copd on chronic O2 @ 3L. Not requiring additional O2 at this time. CT head completed and negative. Troponins negative. EKG sinus without acute changes. Labs unremarkable except ammonia level elevated in 40s. Has pmh of cirrhosis. Given 1 dose of lactulose in ER. CT chest completed and showed bilateral infiltrates. Started on levaquin. Admitted to med/surg observation. Hospital Course Subjective: Patient received levaquin, steroids, and nebs for treatment of community acquired pneumonia and COPD exacerbation. Did not require any additional supplemental oxygen. Feeling better today. Ammonia was high in 40s on admission. Received 2 doses of lactulose during stay and ammonia level down to 15.1 this am. No further dizziness or other symptoms. Had long list of complaints including chest pain while in ER. 3 troponins completed and negative. No further report of chest pain. Likely due to pneumonia. No changes to home medications. Appearance: Pleasant, No Apparent Distress and Alert HEENT: MMM, Supple and No JVD CVS: No Murmur Abdomen: Soft and Non-Tender Respiratory: No Dyspnea Extremities: No Edema Vital Signs: Most Recent Vital Signs Temperature 97.5 F L 02/05/24 05:28 Temperature Source Temporal Artery Scan 02/05/24 05:28 Temperature Source Temporal Artery Scan 02/03/24 21:20 Pulse Rate 80 02/05/24 08:00 Respiratory Rate 18 02/05/24 08:00 Blood Pressure 121/61 02/05/24 05:28 Blood Pressure Mean 81 02/05/24 05:28 Blood Pressure Left Arm 116/73 02/03/24 21:40 Blood Pressure Location Left Arm 02/05/24 05:28 Blood Pressure Position Supine 02/05/24 05:28 O2 Sat by Pulse Oximetry 95 02/05/24 05:28 Oxygen Delivery Method Nasal Cannula 02/05/24 08:00 Oxygen Flow Rate 3 02/05/24 08:00 Height 5 ft 6 in 02/03/24 21:40 Weight 245 lb 9.6 oz 02/03/24 21:40 Telemetry Type Remote Telemetry 02/05/24 07:00 Telemetry Monitoring Continues 02/05/24 07:00 Telemetry Heart Rate 71 02/05/24 07:00 Telemetry SPO2 95 02/05/24 07:[address] Interval 0.18 02/05/24 07:00 EKG QRS Interval 0.06 02/05/24 07:00 Telemetry Strip Reading NSR 02/05/24 07:00 Lab Results Last 24 Hours: 02/05/24 02/04/24 05:04 14:53 WBC 7.32 RBC 3.69 L Hgb 11.1 L Hct 34.7 L MCV 94.0 MCH 30.1 MCHC 32.0 RDW Coeff of [place] 14.2 Plt Count 191 Immature Gran % (Auto) 0.3 Neut % (Auto) 63.2 Lymph % (Auto) 24.6 [place] % (Auto) 11.5 H Eos % (Auto) 0.3 Baso % (Auto) 0.1 Neut # (Auto) 4.6 Lymph # (Auto) 1.8 [place] # (Auto) 0.8 Eos # (Auto) 0.0 Baso # (Auto) 0.0 Immature Gran # (Auto) 0.0 Sodium 135.0 Potassium 3.88 Chloride 101.9 Carbon Dioxide 31.0 H Anion Gap 5.98 BUN 15.2 Creatinine 0.49 L Estimated GFR (MDRD) 128.00 BUN/Creatinine Ratio 31.02 Glucose 256.8 H Calcium 8.76 Total Bilirubin 0.38 AST 25.3 ALT 17.5 Alkaline Phosphatase 88.6 Ammonia 15.1 20.7 Total Protein 6.33 Albumin 3.30 L Globulin 3.03 Albumin/Globulin Ratio 1.08 Discharge Instructions Discharge Planning: Discharge Planning > 40 minutes If patient is discharged with left ventricular systolic dysfunction: NA Discharged with a beta edis? [] If no, why not? [] Discharged with an josesito/arb? [] If no, why not? [] DX: COMMUNITY ACQUIRED PNEUMONIA, HYPERAMMONEMIA RX: LEVAQUIN, PREDNISONE, DUONEBS DIABETIC DIET ACTIVITY TOLERATED FOLLOW-UP WITH PCP NEXT WEEK Discharge Medications: Medications at Discharge (Home Meds & RX) aspirin 81 mg chewable tablet 81 mg PO DAILYWM 10/16/14 conjugated estrogens 1.25 mg tablet (Premarin) 1.25 mg PO DAILY 04/07/15 albuterol sulfate 90 mcg/actuation aerosol inhaler (ProAir HFA) 2 puff inhalation Q6H PRN SOB/WHEEZING 08/21/15 atorvastatin 80 mg tablet 80 mg PO BEDTIME 02/09/18 ranolazine 500 mg tablet,extended release,12 hr (Ranexa) 1,000 mg PO BID 02/09/18 clopidogrel 75 mg tablet 75 mg PO QDAY 01/08/21 fenofibrate nanocrystallized 145 mg tablet 145 mg PO QDAY 01/08/21 losartan 25 mg tablet 25 mg PO QDAY 01/08/21 pantoprazole 40 mg tablet,delayed release 40 mg PO QDAY 01/08/21 tizanidine 2 mg capsule 4 mg PO BID 04/26/21 oxycodone 10 mg tablet 10 mg PO Q4-6H PRN Pain 09/26/21 magnesium oxide 400 mg (241.3 mg magnesium) tablet 800 mg PO MOWEFR 01/29/22 pregabalin 50 mg capsule (Lyrica) 50 mg PO TID 05/08/22 insulin glargine 100 unit/mL (3 mL) subcutaneous pen (Lantus Solostar U-100 Insulin) 50 unit subcut BID 06/26/22 methimazole 5 mg tablet 2.5 mg PO DAILY 06/26/22 donepezil 5 mg tablet 5 mg PO DAILY 11/13/22 furosemide 40 mg tablet 40 mg PO DAILY 11/13/22 insulin lispro 100 unit/mL subcutaneous pen (Admelog SoloStar U-100 Insulin lispro) 20 - 30 unit subcut ACHS 11/13/22 magnesium oxide 400 mg PO SUTUTHSA 11/13/22 potassium chloride 20 mEq tablet,extended release(part/cryst) 20 meq PO DAILY 11/13/22 solifenacin 10 mg tablet 10 mg PO DAILY 11/13/22 meloxicam 15 mg tablet 15 mg PO DAILY #30 tabs 01/20/23 fluoxetine 40 mg capsule 80 mg (2 x 40 mg) PO QAM 30 days #60 caps 02/12/23 trazodone 300 mg tablet 300 mg PO QHS PRN insomnia #30 tabs 02/12/23 Discharge Plan Discharge Discharge Orders: Discharge Patient (ONCE); Ordered 02/05/24 Ordered By: MELINDA FERNANDO Activity Restrictions/Additional Instructions: Diabetic Diet Activity as tolerated Follow-up with PCP next week Medications: Prednisone 10 mg daily x 3 days Levaquin 750 mg daily x 5 days Duoneb (breathing treatment) every 4 hours as needed for shortness of breath Instructions: Community Acquired Pneumonia (GEN) Patient Disposition: HOME SELF-CARE Prescriptions: New ipratropium-albuterol 0.5 mg-3 mg(2.5 mg base)/3 mL Solution For Nebulization 3 ml NEB RTQ4H PRN (Reason: Shortness Of Breath Or Wheezing) Qty: 100 0RF levofloxacin 750 mg tablet 750 mg PO DAILY Qty: 5 0RF prednisone 10 mg tablet 10 mg PO DAILY Qty: 3 0RF Continued aspirin 81 MG tablet,chewable 81 mg PO DAILYWM Premarin 1.25 MG tablet 1.25 mg PO DAILY albuterol sulfate [ProAir HFA] 200 PUFF/8.5 GM HFA aerosol inhaler 2 puff inhalation Q6H PRN (Reason: SOB/WHEEZING) atorvastatin 80 MG tablet 80 mg PO BEDTIME ranolazine [Ranexa] 500 MG tablet extended release 12 hr 1,000 mg PO BID magnesium oxide 400 mg (241.3 mg magnesium) tablet 800 mg PO MOWEFR methimazole 5 mg tablet 2.5 mg PO DAILY insulin glargine [Lantus Solostar U-100 Insulin] 100 unit/mL (3 mL) insulin pen 50 unit SUBCUT BID insulin lispro [Admelog SoloStar U-100 Insulin] 100 unit/mL Insulin Pen 20 - 30 unit SUBCUT ACHS furosemide 40 mg tablet 40 mg PO DAILY donepezil 5 mg tablet 5 mg PO DAILY potassium chloride 20 mEq tablet,ER particles/crystals 20 meq PO DAILY solifenacin 10 mg Tablet 10 mg PO DAILY magnesium oxide 400 mg magnesium Tablet 400 mg PO SUTUTHSA meloxicam 15 mg tablet 15 mg PO DAILY Qty: 30 0RF pantoprazole 40 mg tablet,delayed release (DR/EC) 40 mg PO QDAY clopidogrel 75 mg tablet 75 mg PO QDAY fenofibrate nanocrystallized 145 mg tablet 145 mg PO QDAY losartan 25 mg tablet 25 mg PO QDAY oxycodone 10 mg tablet 10 mg PO Q4-6H PRN (Reason: Pain) pregabalin [Lyrica] 50 mg capsule 50 mg PO TID fluoxetine 40 mg capsule 80 mg PO QAM 30 Days Qty: 60 2RF trazodone 300 mg tablet 300 mg PO QHS PRN (Reason: insomnia) Qty: 30 2RF tizanidine 2 mg capsule 4 mg PO BID Did you review [place] [employer] for ALL controlled substances?: Yes Discussed opioids are addictive and Narcan is available by prescription or from pharmacy.: Yes Condition: Fair
== END 2024-02-05 10:50 | disposition home or self-care (01) ==
LOC: ED 18:08 → MEDSURG B 18:08
PROVIDERS: ADMIT Nurse Practitioner Family; ATTEND Nurse Practitioner Family
DX: R59.0 Localized enlarged lymph nodes; Z51.81 Encounter for therapeutic drug level monitoring; R91.1 Solitary pulmonary nodule; R47.81 Slurred speech; R51.9 Headache, unspecified; J18.9 Pneumonia, unspecified organism; E72.20 Disorder of urea cycle metabolism, unspecified; Z20.822 Contact with and (suspected) exposure to COVID-19; R07.9 Chest pain, unspecified; I25.10 Atherosclerotic heart disease of native coronary artery without angina pectoris; E11.65 Type 2 diabetes mellitus with hyperglycemia; Z79.899 Other long term (current) drug therapy; Z79.4 Long term (current) use of insulin; R53.83 Other fatigue; Z99.81 Dependence on supplemental oxygen; F17.210 Nicotine dependence, cigarettes, uncomplicated; R42 Dizziness and giddiness; M25.512 Pain in left shoulder; Z95.5 Presence of coronary angioplasty implant and graft; I10 Essential (primary) hypertension; J44.1 Chronic obstructive pulmonary disease with (acute) exacerbation

== ENCOUNTER 2025-06-17 13:51 | Inpatient (IN) ==
--- NOTE | 2025-06-17 14:21 | ED.PDOC ---
General [facility] ED Provider: Dr. LANCE DELUNA MD Chief Complaint: Dizziness Stated Complaint: Patient presents to ER from home accompanied by her stepdaughter/caregiver complaining of worsening dizziness and generalized weakness. Reports onset was earlier today, however patient says she has been feeling unwell for the past 3 days. States that she was on her way to get an outpatient chest x-ray and just was feeling unwell. Had previously been prescribed doxycycline for COPD exacerbation but has not started this medication yet today. Has a long history of COPD uses 3 L oxygen at baseline. Also has a history of right upper lobe lung cancer status post chemoradiation, however patient declines any additional chemo/rads at this time. Is scheduled for outpatient PET scan on the and pending those results may consider immunotherapy. States today she is also happening suprapubic tenderness and pain at the end of each void that has been going on for the past couple days. Denies fever, chills, nausea, vomiting, diarrhea, shortness of breath, difficulty breathing, chest pain. No other complaints. Time Seen by Provider: 06/17/25 14:21 Mode of Arrival: Walk-In Information Source: Patient and Family (Patient's stepdaughter) Exam Limitations: No limitations Primary Care Provider: DAJA AGUERO Nursing and Triage Documentation Reviewed and Agree: Yes Opioid Naive vs. Tolerant What is Opioid Naive?: *Opioid Naive implies the patient is not already taking opioids or not chronically receiving opioids on a daily basis. *PRN dosing is not "usually" associated with tolerance. *Patients are at higher risk of over-sedation and aspiration. What is Opioid Tolerant?: *Opioid Tolerance implies less than the expected response to an opioid. *Acquired tolerance is defined by the patient taking 60mg of oral morphine daily (or equianalgesic dose of another opioid) for 1 week or more. *Often associated with chronic pain. *May take more than usual dose to achieve desired pain control. Review of Systems Review Of Systems Constitutional: Reports No symptoms All Other Systems: Reviewed and Negative (Except for those listed in the HPI above.) [facility] Medical History Memory deficit IS GOING TO [facility] ON 07/18 TO HAVE A [address]ORY TEST PER DR. UPTON/PATIENT. R41.3 - Other amnesia (ICD-10) Anxiety F41.9 - Anxiety disorder, unspecified (ICD-10) Depression F32.9 - Major depressive disorder, single episode, unspecified (ICD-10) Asthma J45.909 - Unspecified asthma, uncomplicated (ICD-10) Panic attacks F41.0 - Panic disorder [episodic paroxysmal anxiety] (ICD-10) Radicular pain of upper extremity M54.10 - Radiculopathy, site unspecified (ICD-10) Family History Mother Cancer brain Diabetes Alcoholism FATHER Heart attack Alcoholism BROTHER Brain injury hit by car at age 3 Heart attack BROTHER Overdose BROTHER Hepatitis C BROTHER Hepatitis C SISTER Heart attack Social History Smoking and tobacco status: Former smoker Quit status: has quit before Alcohol intake: never Substance use type: does not use Kenzie/alevism: YARSANI Special kenzie needs: No Agree to transfusion: Yes Adopted: No Caregiver/support person: No Household members: none Housing: house Marital status: D Lives independently: Yes Number of children: 5 Number of grandchildren: 12 Highest education level completed: 3rd grade Financial difficulty paying for basics: not very hard service: No MCFP: No Current occupational status: disabled Current occupational exposures/hazards: No Pets and animals: Yes (dog ) History of recent travel: No Sexually active: No Do you think of yourself as: straight/heterosexual Current gender identity: female Seatbelt use: always Drives intoxicated or rides with intoxicated carry all driver: No Water heater temperature set < 120 degrees: Yes Working smoke detector in home: Yes Fire extinguisher in home: Yes Carbon monoxide detector in home: Yes Firearms in home: No Surgical History H/O heart artery stent Z95.5 - Presence of coronary angioplasty implant and graft (ICD-10) Female Reproductive History Menstrual Hx Hysterectomy: Yes Hx Tubal Ligation: No Physical Exam Physical Exam Appearance: Reports Well-appearing, No pain distress, Well-nourished and Obese Ill-appearing: None Pain Distress: None Eyes: Reports BABAK and EOMI ENT: Reports Ears normal and Nose normal Neck: Supple Respiratory: Reports Airway patent, Breath sounds equal, Respirations nonlabored and Wheezes (Coarse bilateral breath sounds with expiratory wheezing) Cardiovascular: Reports RRR, Pulses normal, No rub and No murmur GI/: Reports Soft and Nontender Musculoskeletal: Reports Normal strength and ROM intact Skin: Reports Warm, Dry and Normal color Neurological: Reports Sensation intact, Motor intact, Alert and Oriented Psychiatric: Reports Affect appropriate and Mood appropriate Interpretation EKG Interpretation EKG Interpretation By: ED Physician Time of EKG #1: 14:14 Rate: Normal Rhythm: Sinus Ectopy: None Sandy Level: NL ST Segment: Normal Interpretation: NSR, normal ECG interpreted by me. Course Course 06/17/25 14:40 06/17/25 14:40 Orders, Labs, Meds: Lab Review 06/17/25 06/17/25 06/17/25 14:40 14:45 14:50 WBC 7.50 RBC 4.17 L Hgb 12.4 Hct 38.5 MCV 92.3 MCH 29.7 MCHC 32.2 RDW Coeff of Wilson 14.4 Plt Count 212 Immature Gran % (Auto) 0.3 Neut % (Auto) 63.1 Lymph % (Auto) 20.4 [place] % (Auto) 14.8 H Eos % (Auto) 0.9 Baso % (Auto) 0.5 Neut # (Auto) 4.7 Lymph # (Auto) 1.5 [place] # (Auto) 1.1 Eos # (Auto) 0.1 Baso # (Auto) 0.0 Immature Gran # (Auto) 0.0 PT 10.8 INR 1.04 Puncture Site Rbrach Base Excess 2.5 O2 Saturation 97.7 ABG pH 7.40 ABG pCO2 44.0 ABG pO2 99.0 ABG HCO3 27.3 ABG Total CO2 28.7 H Hemoglobin 1.1 Oxyhemoglobin 90.9 L Carboxyhemoglobin 6.8 H Total Hemoglobin 12.5 O2 Delivery Device Cannula Oxygen Liter Flow 2.00 Sodium 132.8 L Potassium 4.39 Chloride 96.6 L Carbon Dioxide 27.7 Anion Gap 12.89 BUN 17.0 Creatinine 0.57 L Estimated GFR (MDRD) 107.00 BUN/Creatinine Ratio 29.82 Glucose 199.0 H Lactic Acid 1.79 Calcium 9.05 Magnesium Total Bilirubin 0.41 AST 20.5 ALT 16.3 Alkaline Phosphatase 118.9 Ammonia Total Protein 6.42 Albumin 3.44 L Globulin 2.98 Albumin/Globulin Ratio 1.15 Procalcitonin < 0.05 TSH D-Dimer 557.69 H Urine Color Urine Clarity Urine pH Ur Specific [place] Urine Protein Urine Glucose (UA) Urine Ketones Urine Blood Urine Nitrite Urine Bilirubin Urine Urobilinogen Ur Leukocyte Esterase Urine Microscopic WBC Ur Squamous Epith Cells Urine Bacteria Urine Opiates Screen Ur Oxycodone Screen Urine Methadone Screen Ur Barbiturates Screen U Tricyclic Antidepress Ur Phencyclidine Scrn Ur Amphetamine Screen U Methamphetamines Scrn U Benzodiazepines Scrn Urine Cocaine Screen U Cannabinoids Screen Influ A Molecular Assay Negative by naat Influ B Molecular Assay Negative by naat RSV Antigen Negative by naat SARS CoV-2 RNA Rapid SAMANTHA Negative 06/17/25 06/17/25 06/17/25 16:00 18:59 19:37 WBC RBC Hgb Hct MCV MCH MCHC RDW Coeff of Wilson Plt Count Immature Gran % (Auto) Neut % (Auto) Lymph % (Auto) [place] % (Auto) Eos % (Auto) Baso % (Auto) Neut # (Auto) Lymph # (Auto) [place] # (Auto) Eos # (Auto) Baso # (Auto) Immature Gran # (Auto) PT INR Puncture Site Base Excess O2 Saturation ABG pH ABG pCO2 ABG pO2 ABG HCO3 ABG Total CO2 Hemoglobin Oxyhemoglobin Carboxyhemoglobin Total Hemoglobin O2 Delivery Device Oxygen Liter Flow Sodium Potassium Chloride Carbon Dioxide Anion Gap BUN Creatinine Estimated GFR (MDRD) BUN/Creatinine Ratio Glucose Lactic Acid Calcium Magnesium 1.25 L Total Bilirubin AST ALT Alkaline Phosphatase Ammonia Total Protein Albumin Globulin Albumin/Globulin Ratio Procalcitonin TSH 2.610 D-Dimer Urine Color Beti Urine Clarity Slightly Urine pH 5.5 Ur Specific [place] 1.015 Urine Protein 1+ H Urine Glucose (UA) Negative Urine Ketones Negative Urine Blood 1+ H Urine Nitrite Negative Urine Bilirubin Negative Urine Urobilinogen 0.2 Ur Leukocyte Esterase Trace H Urine Microscopic WBC Tntc Ur Squamous Epith Cells 5-10 Urine Bacteria 4+ Urine Opiates Screen Negative Ur Oxycodone Screen Negative Urine Methadone Screen Negative Ur Barbiturates Screen Negative U Tricyclic Antidepress Negative Ur Phencyclidine Scrn Negative Ur Amphetamine Screen Negative U Methamphetamines Scrn Negative U Benzodiazepines Scrn Positive H Urine Cocaine Screen Negative U Cannabinoids Screen Negative Influ A Molecular Assay Influ B Molecular Assay RSV Antigen SARS CoV-2 RNA Rapid SAMANTHA 06/17/25 19:42 WBC RBC Hgb Hct MCV MCH MCHC RDW Coeff of Wilson Plt Count Immature Gran % (Auto) Neut % (Auto) Lymph % (Auto) [place] % (Auto) Eos % (Auto) Baso % (Auto) Neut # (Auto) Lymph # (Auto) [place] # (Auto) Eos # (Auto) Baso # (Auto) Immature Gran # (Auto) PT INR Puncture Site Base Excess O2 Saturation ABG pH ABG pCO2 ABG pO2 ABG HCO3 ABG Total CO2 Hemoglobin Oxyhemoglobin Carboxyhemoglobin Total Hemoglobin O2 Delivery Device Oxygen Liter Flow Sodium Potassium Chloride Carbon Dioxide Anion Gap BUN Creatinine Estimated GFR (MDRD) BUN/Creatinine Ratio Glucose Lactic Acid Calcium Magnesium Total Bilirubin AST ALT Alkaline Phosphatase Ammonia 17.3 Total Protein Albumin Globulin Albumin/Globulin Ratio Procalcitonin TSH D-Dimer Urine Color Urine Clarity Urine pH Ur Specific [place] Urine Protein Urine Glucose (UA) Urine Ketones Urine Blood Urine Nitrite Urine Bilirubin Urine Urobilinogen Ur Leukocyte Esterase Urine Microscopic WBC Ur Squamous Epith Cells Urine Bacteria Urine Opiates Screen Ur Oxycodone Screen Urine Methadone Screen Ur Barbiturates Screen U Tricyclic Antidepress Ur Phencyclidine Scrn Ur Amphetamine Screen U Methamphetamines Scrn U Benzodiazepines Scrn Urine Cocaine Screen U Cannabinoids Screen Influ A Molecular Assay Influ B Molecular Assay RSV Antigen SARS CoV-2 RNA Rapid SAMANTHA Orders Category Date Time Status OBSERVATION [PLACE PATIENT OBSERVATION] .TO MEDSURG ADMISSION 06/17/25 20:45 Active (MONITORED BED) EKG-(ED ONLY) Stat CARDIO 06/17/25 14:25 Completed NEBULIZER TREATMENT Stat CARDIO 06/17/25 14:47 Completed NPO REMINDER: IMAGING ONCE CARE 06/17/25 15:41 Completed TELEMETRY MONITORING TELE CARE 06/17/25 20:45 Active ED VP SECURITY APPLIED .ONCE EMERGENCY 06/17/25 14:32 Active ED IV/MEDIPORT/POWERPORT .ONCE EMERGENCY 06/17/25 14:32 Active ED VITAL SIGNS .ONCE EMERGENCY 06/17/25 14:32 Active ABG COOX Stat LAB 06/17/25 14:50 Completed AMMONIA Stat LAB 06/17/25 19:42 Completed BLOOD CULTURE (ED ONLY) Stat LAB 06/17/25 15:11 Received CBC W/ AUTO DIFF Stat LAB 06/17/25 14:40 Completed COMPREHENSIVE METABOLIC PANEL Stat LAB 06/17/25 14:40 Completed D-DIMER Stat LAB 06/17/25 14:40 Completed DRUG SCREEN, URINE, RAPID Stat LAB 06/17/25 16:00 Completed FLU A/B MOLECULAR Stat LAB 06/17/25 14:45 Completed LACTIC ACID Stat LAB 06/17/25 14:40 Completed MAGNESIUM Stat LAB 06/17/25 18:59 Completed PROCALCITONIN Stat LAB 06/17/25 14:40 Completed PT WITH INR Stat LAB 06/17/25 14:40 Completed RSV Stat LAB 06/17/25 14:45 Completed SARS COV-2 RNA RAPID SAMANTHA Stat LAB 06/17/25 14:45 Completed TSH [THYROID STIMULATING HORMONE] Stat LAB 06/17/25 19:37 Completed URINALYSIS C & S IF INDICATED Stat LAB 06/17/25 16:00 Completed URINE CULTURE Stat LAB 06/17/25 16:00 Received 0.9 % Sodium Chloride [Saline Flush] Meds 06/17/25 14:32 Active 1 syr IVF PRN PRN Acetaminophen Meds 06/17/25 20:46 Discontinued 1,000 mg in 100 ml IV ONCE Ipratropium/Albuterol Neb [Duoneb] Meds 06/17/25 14:47 Discontinued 3 ml NEB ONCE STA Ipratropium/Albuterol Neb [Duoneb] Meds 06/17/25 14:47 Discontinued 3 ml NEB ONCE STA Levofloxacin/D5w [Levaquin 750 mg/150 ml D5w] Meds 06/17/25 18:17 Discontinued 750 mg in 150 ml IV ONCE Magnesium Oxide [Mag-Ox] Meds 06/17/25 19:39 Discontinued 800 mg PO ONCE STA Ondansetron HCl/Pf [Zofran Sdv] Meds 06/17/25 19:45 Discontinued 4 mg IVP ONCE STA Sodium Chloride 0.9% [Sodium Chloride] 1,000 ml Meds 06/17/25 14:[address] ABDOMEN/PELVIS WO CONTRAST Stat RADS 06/17/25 18:[address] CHEST W/O CONTRAST Stat RADS 06/17/25 15:[address] HEAD W/O CONTRAST Stat RADS 06/17/25 18:17 Completed Medications Generic Name Dose Route Start Last Admin Trade Name Freq PRN Reason Stop Dose Admin Acetaminophen 650 mg 06/17/25 21:15 Acetaminophen 325 Mg Tablet PO Q4H PRN Mild Pain Enoxaparin Sodium 40 mg 06/18/25 09:00 Enoxaparin Sodium 40 Mg/0.4 Ml Syr SUBCUT DAILY MARIAELENA CEFTRIAXONE/D5W 1 GM PREMIX 1 gm in 50 mls @ 100 mls/hr 06/17/25 22:00 06/17/25 21:33 Rocephin 1 Gm/50 Ml D5w IV 06/20/25 21:59 100 mls/hr BEDTIME MARIAELENA Administration Sodium Chloride 1 syr 06/17/25 14:32 0.9% Sodium Chloride 10 Ml Disp.Syrin IVF PRN PRN To flush IV Discontinued Medications Generic Name Dose Route Start Last Admin Trade Name Freq PRN Reason Stop Dose Admin Albuterol/Ipratropium 3 ml 06/17/25 14:47 06/17/25 15:02 Ipratropium/Albuterol Vial.[facility] 06/17/25 14:48 3 ml ONCE STA Administration Albuterol/Ipratropium 3 ml 06/17/25 14:47 06/17/25 15:04 Ipratropium/Albuterol Vial.[facility] 06/17/25 14:48 Not Given ONCE STA Sodium Chloride 1,000 mls @ 1,000 mls/hr 06/17/25 14:32 06/17/25 16:06 Sodium Chloride IV 06/17/25 15:31 Infused BOLUS ONE Infusion Levofloxacin/Dextrose 750 mg in 150 mls @ 100 mls/hr 06/17/25 18:17 06/17/25 18:27 Levaquin 750 Mg/150 Ml D5w IV 06/17/25 19:46 100 mls/hr ONCE ONE Administration Acetaminophen 1,000 mg in 100 mls @ 400 mls/hr 06/17/25 20:46 06/17/25 21:00 Acetaminophen IV 06/17/25 21:00 400 mls/hr ONCE ONE Administration Magnesium Oxide 800 mg 06/17/25 19:39 06/17/25 19:56 Magnesium Oxide 400 Mg Tablet PO 06/17/25 19:40 800 mg ONCE STA Administration Ondansetron HCl 4 mg 06/17/25 19:45 06/17/25 20:00 Ondansetron Hcl/Pf 4 Mg/2 Ml Sdv IVP 06/17/25 19:46 4 mg ONCE STA Administration [address] Report : [id number] Signed Patient: BRONSON MENDOZA Acct:[id number] Medical Record: [id number] : 1960 Loc: ED Room/Bed: Age/Sex: 64 / F ADM Status: REG ER Date of Service: 06/17/25 Ordering Physician: LANCE DELUNA MD Procedure(s): CT HEAD W/O CONTRAST Report Number(s): [id number] Accession Number(s): [id number] cc: DAJA AGUERO ; LANCE DELUNA MD EXAMINATION: HEAD CT WITHOUT CONTRAST HISTORY: Altered mental status. TECHNIQUE: Noncontrast CT of the brain was performed with images acquired from skull base to vertex. 2-D coronal and sagittal reformatted images were obtained from the axial source images. Contrast Dose: None. CT Dose Reduction Techniques Performed: Yes. COMPARISON: 02/03/2024. FINDINGS: Topogram demonstrates no significant abnormality. Intraparenchymal hemorrhage: None. Parenchyma: Normal burgess-white differentiation. No mass effect or midline shift. Extra-axial spaces and basal cisterns: Normal. Ventricles: Normal size and morphology for age. Paranasal sinuses and mastoid air cells: Visualized portions of paranasal sinuses are clear. Mastoid air cells are clear. Orbits: Normal visualized portions. Sella/Skull Base: Normal. Other: Scalp and visualized soft tissues are normal. Calvarium is normal. IMPRESSION: 1. No intracranial hemorrhage. 2. Unremarkable noncontrast CT scan of the brain. All CT scans are performed using dose optimization techniques as appropriate to the performed exam and include at least one of the following: Automated exposure control, adjustment of the mA and/or kV according to size, and the use of iterative reconstruction technique. Dictated By: CHRISTIANO DAVISON MD Signed By: CHRISTIANO DAVISON MD Dictated Date/Time: 06/17/251913 Transcribed Date/Time: 06/17/251913 Signed Date/Time: 06/17/251921 [address] Report : [id number] Signed Patient: BRONSON MENDOZA Acct:[id number] Medical Record: [id number] : 1960 Loc: ED Room/Bed: Age/Sex: 64 / F ADM Status: REG ER Date of Service: 06/17/25 Ordering Physician: LANCE DELUNA MD Procedure(s): CT CHEST W/O CONTRAST Report Number(s): [id number] Accession Number(s): [id number] cc: DAJA AGUERO ; LANCE DELUNA MD EXAM: CHEST CT WITHOUT CONTRAST 06/17/2025 HISTORY: Bilateral coarse breath sounds TECHNIQUE: Axial CT images were obtained through the chest without the administration of intravenous contrast. Coronal and sagittal reformatted images were also submitted for interpretation. COMPARISON: CT chest 04/12/2025. FINDINGS: The lower neck is within normal limits. Major airways are patent. No pneumothorax or pleural fluid. Enlarging mass in the posterior right upper lobe measuring 5.3 x 4.9 cm (series 3, image 26), previously 3.9 x 4.2 cm. Calcified granuloma. Mild emphysematous changes. Mild bibasilar atelectasis and/or pneumonitis. Mild cardiomegaly. The unenhanced thoracic aorta is normal in size. Atherosclerosis in the aorta. Coronary calcifications. Enlarged pulmonary trunk measuring 3.10 cm suggestive of pulmonary arterial hypertension. No lymphadenopathy allowing for limitation by lack of IV contrast. Soft tissue structures are unremarkable. Cholecystectomy clips. Small hiatal hernia. Possible hepatic steatosis. Correlation with LFTs recommended. The bones are intact. IMPRESSION: - Enlarging mass in the posterior right upper lobe measuring 5.3 x 4.9 cm, previously 3.9 x 4.2 cm. Neoplasm is possibility. Tissue sampling and/or further evaluation with PET scan advised. - Enlarged pulmonary trunk measuring 3.10 cm suggestive of pulmonary arterial hypertension. - Atherosclerosis in the aorta. Coronary calcifications. Mild cardiomegaly. - Cholecystectomy clips. Small hiatal hernia. Possible hepatic steatosis. Correlation with LFTs recommended. All CT scans are performed using dose optimization techniques as appropriate to the performed exam and include at least one of the following: Automated exposure control, adjustment of the mA and/or kV according to size, and the use of iterative reconstruction technique. Dictated By: LISA VASQUEZ Signed By: LISA VASQUEZ Dictated Date/Time: 08/07/04 1716 Transcribed Date/Time: 06/17/256 Signed Date/Time: 06/17/[address] Report : [id number] Signed Patient: BRONSON MENDOZA Acct:[id number] Medical Record: [id number] : 1960 Loc: ED Room/Bed: Age/Sex: 64 / F ADM Status: REG ER Date of Service: 06/17/25 Ordering Physician: LANCE DELUNA MD Procedure(s): CT ABDOMEN/PELVIS WO CONTRAST Report Number(s): [id number] Accession Number(s): [id number] cc: DAJA AGUERO ; LANCE DELUNA MD EXAM: CT OF THE ABDOMEN AND PELVIS WITHOUT CONTRAST. TECHNIQUE: CT of the abdomen and pelvis was performed without the use of contrast. Multiplanar reformats were performed. HISTORY: Suprapubic pain. COMPARISON: None. FINDINGS: Evaluation of solid organs and blood vessels is suboptimal without the benefit of contrast. Imaged lower thorax: No significant findings. There appears to be a duodenal diverticulum near the pancreatic uncinate process. Liver: The hepatomegaly. Gallbladder/Bile Ducts: No biliary dilation. The gallbladder is absent.. Spleen: Unremarkable. Pancreas: Normal. Adrenals: No discrete lesions. Kidneys/Ureters: No acute findings. Bowel/mesentery/peritoneum: No bowel obstruction. Normal appendix. No free fluid or free air.No inflammatory bowel changes are evident.. Abominal Wall: No defects. Retroperitoneum/vessels: No aortic aneurysm. No adenopathy. Pelvis: The bladder wall contour is normal.. Bones: No aggressive lesion identified.Lumbar disc disease and L5-S1. Symmetric degenerative change of the hips. IMPRESSION: 1. Duodenal diverticulum. 2. Post cholecystectomy 3. Hepatomegaly. 4. Degenerative change of the spine hips and pelvis. All CT scans are performed using dose optimization techniques as appropriate to the performed exam and includes at least one of the following: Automated exposure control, adjustment of the mA and/or kV according to size, and the use of iterative reconstruction technique. All CT scans are performed using dose optimization techniques as appropriate to the performed exam and include at least one of the following: Automated exposure control, adjustment of the mA and/or kV according to size, and the use of iterative reconstruction technique. Dictated By: MONICA WINCHESTER MD Signed By: MONICA WINCHESTER MD Dictated Date/Time: 06/17/251914 Transcribed Date/Time: 06/17/251914 Signed Date/Time: 06/17/251930 Vital Signs: Temp Pulse Resp BP Pulse Ox 06/17/25 14:16 133/71 06/17/25 14:06 98.3 F 80 20 189/95 H 96 20:45 -spoke with on-call hospitalist (Rafael Heard, [employer] close karri regarding patient's status and current workup and management for altered mental status likely due to UTI versus worsening chronic dementia as well as generalized weakness. Patient's vitals have been stable throughout ER visit. Patient has received 1L NS bolus, Rocephin 1 g, Ofirmev 1000 mg. Hospitalist agrees to accept patient for admission for further workup and care. Discharge Plan Discharge Patient Disposition: PLACED OBSERVATION Discharge Problem: UTI (urinary tract infection), Altered mental status, Generalized weakness Did you review [place] [employer]CTOR for ALL controlled substances?: Not Applicable ED Provider: LANCE DELUNA Condition: Good
[2025-06-17 14:52] LABS: IMMATURE GRANULOCYTE # (AUTO) 0.0 (0.0-1.0); IMMATURE GRANULOCYTE % (AUTO) 0.3 % (0.0-5.0); RDW COEFFICIENT OF VARIATION 14.4 % (11.6-14.8)
[2025-06-17] MEDS: SODIUM CHLORIDE 1,000 ML IV ONE (14:52)
[2025-06-17 15:00] LABS: ABG O2 HGB 90.9 % (95-100); ABG PCO2 44.0 mmHg (35-45); ABG PH 7.40 (7.35-7.45); ABG PO2 99.0 mmHg (85-100); BEecf 2.5 (-2.0-3.0); HCO3 27.3 (21-28); TCO2 28.7 (19-24)
[2025-06-17] MEDS: DUONEB NEB STA ×2 (15:02→15:04)
[2025-06-17 15:04] LABS: CREATININE 0.57 mg/dL (0.60-1.30)
[2025-06-17 15:10] LABS: MOLECULAR FLU A NEGATIVE BY NAAT (NEGATIVE); MOLECULAR FLU B NEGATIVE BY NAAT (NEGATIVE); RSV MOLECULAR NEGATIVE BY NAAT (NEGATIVE); SARS COV-2 RNA RAPID NAAT NEGATIVE (NEGATIVE)
[2025-06-17 15:13] LABS: INR 1.04 SI (0.0-3.9)
[2025-06-17 16:17] LABS: GLUCOSE, URINE (UA) Negative (NEGATIVE); LEUKOCYTE ESTERASE ,URINE Trace (NEGATIVE); URINE, BLOOD 1+ (NEGATIVE)
[2025-06-17 16:19] LABS: URINE WBC, MICROSCOPIC TNTC (0-2)
[2025-06-17 16:27] LABS: AMPHETAMINE SCREEN,URINE NEGATIVE (NEGATIVE); CANNABINOID SCREEN,URINE NEGATIVE (NEGATIVE); COCAIN SCREEN,URINE NEGATIVE (NEGATIVE); METHADONE URINE SCREEN NEGATIVE (NEGATIVE); METHAMPHETAMINES SCREEN,URINE NEGATIVE (NEGATIVE); OXYCODONE URINE SCREEN NEGATIVE (NEGATIVE); TRICYCLIC ANTIDEPRESSANTS URIN NEGATIVE (NEGATIVE)
--- NOTE | 2025-06-17 17:28 | CT ---
EXAM: CHEST CT WITHOUT CONTRAST 06/17/2025 HISTORY: Bilateral coarse breath sounds TECHNIQUE: Axial CT images were obtained through the chest without the administration of intravenous contrast. Coronal and sagittal reformatted images were also submitted for interpretation. COMPARISON: CT chest 04/12/2025. FINDINGS: The lower neck is within normal limits. Major airways are patent. No pneumothorax or pleural fluid. Enlarging mass in the posterior right upper lobe measuring 5.3 x 4.9 cm (series 3, image 26), previously 3.9 x 4.2 cm. Calcified granuloma. Mild emphysematous changes. Mild bibasilar atelectasis and/or pneumonitis. Mild cardiomegaly. The unenhanced thoracic aorta is normal in size. Atherosclerosis in the aorta. Coronary calcifications. Enlarged pulmonary trunk measuring 3.10 cm suggestive of pulmonary arterial hypertension. No lymphadenopathy allowing for limitation by lack of IV contrast. Soft tissue structures are unremarkable. Cholecystectomy clips. Small hiatal hernia. Possible hepatic steatosis. Correlation with LFTs recommended. The bones are intact. IMPRESSION: - Enlarging mass in the posterior right upper lobe measuring 5.3 x 4.9 cm, previously 3.9 x 4.2 cm. Neoplasm is possibility. Tissue sampling and/or further evaluation with PET scan advised. - Enlarged pulmonary trunk measuring 3.10 cm suggestive of pulmonary arterial hypertension. - Atherosclerosis in the aorta. Coronary calcifications. Mild cardiomegaly. - Cholecystectomy clips. Small hiatal hernia. Possible hepatic steatosis. Correlation with LFTs recommended. All CT scans are performed using dose optimization techniques as appropriate to the performed exam and include at least one of the following: Automated exposure control, adjustment of the mA and/or kV according to size, and the use of iterative reconstruction technique.
[2025-06-17] MEDS: LEVAQUIN 750 MG/150 ML D5W 750 MG/150 ML BAG IV ONE (18:27)
--- NOTE | 2025-06-17 19:22 | CT ---
EXAMINATION: HEAD CT WITHOUT CONTRAST HISTORY: Altered mental status. TECHNIQUE: Noncontrast CT of the brain was performed with images acquired from skull base to vertex. 2-D coronal and sagittal reformatted images were obtained from the axial source images. Contrast Dose: None. CT Dose Reduction Techniques Performed: Yes. COMPARISON: 02/03/2024. FINDINGS: Topogram demonstrates no significant abnormality. Intraparenchymal hemorrhage: None. Parenchyma: Normal burgess-white differentiation. No mass effect or midline shift. Extra-axial spaces and basal cisterns: Normal. Ventricles: Normal size and morphology for age. Paranasal sinuses and mastoid air cells: Visualized portions of paranasal sinuses are clear. Mastoid air cells are clear. Orbits: Normal visualized portions. Sella/Skull Base: Normal. Other: Scalp and visualized soft tissues are normal. Calvarium is normal. IMPRESSION: 1. No intracranial hemorrhage. 2. Unremarkable noncontrast CT scan of the brain. All CT scans are performed using dose optimization techniques as appropriate to the performed exam and include at least one of the following: Automated exposure control, adjustment of the mA and/or kV according to size, and the use of iterative reconstruction technique.
--- NOTE | 2025-06-17 19:31 | CT ---
EXAM: CT OF THE ABDOMEN AND PELVIS WITHOUT CONTRAST. TECHNIQUE: CT of the abdomen and pelvis was performed without the use of contrast. Multiplanar reformats were performed. HISTORY: Suprapubic pain. COMPARISON: None. FINDINGS: Evaluation of solid organs and blood vessels is suboptimal without the benefit of contrast. Imaged lower thorax: No significant findings. There appears to be a duodenal diverticulum near the pancreatic uncinate process. Liver: The hepatomegaly. Gallbladder/Bile Ducts: No biliary dilation. The gallbladder is absent.. Spleen: Unremarkable. Pancreas: Normal. Adrenals: No discrete lesions. Kidneys/Ureters: No acute findings. Bowel/mesentery/peritoneum: No bowel obstruction. Normal appendix. No free fluid or free air.No inflammatory bowel changes are evident.. Abominal Wall: No defects. Retroperitoneum/vessels: No aortic aneurysm. No adenopathy. Pelvis: The bladder wall contour is normal.. Bones: No aggressive lesion identified.Lumbar disc disease and L5-S1. Symmetric degenerative change of the hips. IMPRESSION: 1. Duodenal diverticulum. 2. Post cholecystectomy 3. Hepatomegaly. 4. Degenerative change of the spine hips and pelvis. All CT scans are performed using dose optimization techniques as appropriate to the performed exam and includes at least one of the following: Automated exposure control, adjustment of the mA and/or kV according to size, and the use of iterative reconstruction technique. All CT scans are performed using dose optimization techniques as appropriate to the performed exam and include at least one of the following: Automated exposure control, adjustment of the mA and/or kV according to size, and the use of iterative reconstruction technique.
[2025-06-17] MEDS: MAG-OX PO STA (19:56)
[2025-06-17] MEDS: ZOFRAN SDV IVP STA (20:00)
[2025-06-17] MEDS: ACETAMINOPHEN 1,000 MG/100 ML BAG IV ONE (21:00)
[2025-06-17] MEDS: ROCEPHIN 1 GM/50 ML D5W 1 GM/50 ML BAG IV SCH (21:33)
[2025-06-17 23:15] VITALS: BMI 35.5
[2025-06-18] MEDS ORDERED: VENTOLIN HFA IH PRN (00:10)
[2025-06-18] MEDS: MAG-OX PO SCH (02:02)
[2025-06-18 04:56] LABS: IMMATURE GRANULOCYTE # (AUTO) 0.0 (0.0-1.0); IMMATURE GRANULOCYTE % (AUTO) 0.2 % (0.0-5.0); RDW COEFFICIENT OF VARIATION 14.5 % (11.6-14.8)
[2025-06-18 05:09] LABS: CREATININE 0.49 mg/dL (0.60-1.30)
[2025-06-18] MEDS: ASPIRIN EC PO SCH (07:46)
[2025-06-18] MEDS: K-DUR PO SCH (07:46)
[2025-06-18] MEDS: TYLENOL PO PRN (07:47)
[2025-06-18] MEDS: SPIRIVA IH SCH (08:03)
[2025-06-18] MEDS: SYMBICORT 160-4.5 MCG INHALER IH SCH (08:03)
[2025-06-18] MEDS: LOVENOX SUBCUT SCH (08:04)
[2025-06-18] MEDS: ZANAFLEX PO SCH (08:04)
[2025-06-18] MEDS: NAMENDA PO SCH (08:04)
[2025-06-18] MEDS: ABILIFY PO SCH (08:05)
[2025-06-18] MEDS: COZAAR PO SCH (08:05)
[2025-06-18] MEDS: ZYRTEC PO SCH (08:05)
[2025-06-18] MEDS: CRESTOR PO SCH (08:05)
[2025-06-18] MEDS: PEPCID PO SCH (08:05)
[2025-06-18] MEDS: RANEXA PO SCH (08:05)
[2025-06-18] MEDS: LYRICA PO SCH (08:06)
[2025-06-18] MEDS: LASIX TAB PO SCH (08:06)
[2025-06-18] MEDS: PROZAC PO SCH (08:06)
[2025-06-18] MEDS: PROTONIX PO SCH (08:06)
[2025-06-18] MEDS: VESICARE PO SCH (08:06)
[2025-06-18] MEDS: PLAVIX PO SCH (08:06)
[2025-06-18] MEDS: CONJUGATED ESTROGENS 1.25 MG PO SCH (08:07)
[2025-06-18] MEDS ORDERED: NON-FORMULARY MEDICATION (Fluticasone-Umeclidin-Vilanter [Trelegy Ellipta] 100-62.5-25 mcg IH SCH (09:00)
[2025-06-18] MEDS ORDERED: MOTRIN PO PRN (09:04)
[2025-06-18] MEDS: MAGNESIUM SULF 2 G/50 ML BAG 2 GM/50 ML PIGGYBACK IV ONE (10:18)
[2025-06-18] MEDS: PERCOCET 10-325 PO PRN (10:38)
[2025-06-18] MEDS: LANTUS SUBCUT SCH (10:40)
--- NOTE | 2025-06-18 10:59 | PCM ---
Date of Service Date Seen by Provider: 06/18/25 Time Seen by Provider: 08:30 Admit Day/Time Admission Date: 06/17/25 Admission Time: 20:45 Reason for Admission Chief Complaint: [facility] Hospital Provider Hospital Provider: Chase Huntley PA-C, [facility] Primary Care Physician Primary Care Physician: DAJA AGUERO History of Present Illness History of Present Illness: Patient is a 64 year old female with pmhx of non small cell lung cancer that is still active who presents to ER with weakness, falls, and uti. She had felt dizzy through the day. Went to get an outpatient x ray done and fell in the parking lot. No head injury. Was started recently on doxy for upper respiratory symptoms. Daughter states she also had an episode of weakness where she fell and possibly passed out for a few seconds. She has been really shaky as well. Patient has a right sided lung cancer, has received treatment in the past. Due to an outpatient PET scan soon to discuss plan/options. Patient states she's been experiencing dysuria and suprapubic tenderness with urination for a few days. In ER was found to have a UTI. Glucose normal. Mag 1.25. Given levaquin. CT head, CT a/p negative. CT chest showing no acute abnormalities but does note the known right lung mass. Admitted to [facility]. Today she states she is feeling better, does complain of a headache. Case Discussed With Case Discussed With: Patient's case was discussed with the ER Physicians, Dr. Webster. [facility] Medical History Memory deficit IS GOING TO [facility] ON 07/18 TO HAVE A [address] TEST PER DR. UPTON/PATIENT. R41.3 - Other amnesia (ICD-10) Anxiety F41.9 - Anxiety disorder, unspecified (ICD-10) Depression F32.9 - Major depressive disorder, single episode, unspecified (ICD-10) Asthma J45.909 - Unspecified asthma, uncomplicated (ICD-10) Panic attacks F41.0 - Panic disorder [episodic paroxysmal anxiety] (ICD-10) Radicular pain of upper extremity M54.10 - Radiculopathy, site unspecified (ICD-10) Surgical History H/O heart artery stent Z95.5 - Presence of coronary angioplasty implant and graft (ICD-10) Family History Mother Cancer brain Diabetes Alcoholism FATHER Heart attack Alcoholism BROTHER Brain injury hit by car at age 3 Heart attack BROTHER Overdose BROTHER Hepatitis C BROTHER Hepatitis C SISTER Heart attack Social History Smoking and tobacco status: Current some day smoker Tobacco type: cigarettes Smoking packs per day: 1 Years smoked: 50 Quit status: has quit before Alcohol intake: never Substance use type: does not use Kenzie/taoism: MORMONISM Special kenzie needs: No Agree to transfusion: Yes Adopted: No Caregiver/support person: No Household members: none Housing: house Marital status: D Lives independently: Yes Number of children: 5 Number of grandchildren: 12 Highest education level completed: 3rd grade Financial difficulty paying for basics: not very hard service: No CHCF: No Current occupational status: disabled Current occupational exposures/hazards: No Pets and animals: Yes (dog ) History of recent travel: No Sexually active: No Do you think of yourself as: straight/heterosexual Current gender identity: female Seatbelt use: always Drives intoxicated or rides with intoxicated horse and wagon driver: No Water heater temperature set < 120 degrees: Yes Working smoke detector in home: Yes Fire extinguisher in home: Yes Carbon monoxide detector in home: Yes Firearms in home: No Allergies Allergies Allergy/AdvReac Type Severity Reaction Status Date / Time amitriptyline AdvReac hallucinati Verified 06/17/25 14:14 ons cephalexin AdvReac Unknown Verified 06/17/25 14:14 clindamycin AdvReac Unknown Verified 06/17/25 14:14 codeine AdvReac Nausea Verified 06/17/25 14:14 Iodinated Contrast Media AdvReac SOB Verified 06/17/25 14:14 (Iodinated Contrast- Oral and IV Dye) nortriptyline AdvReac hallucinati Verified 06/17/25 14:14 ons Current Medications Home Medications Acetaminophen (Acetaminophen 325 Mg Tablet) 650 mg PO Q4H PRN PRN Reason: Mild Pain Last Admin: 06/18/25 07:47 Dose: 650 mg Albuterol Sulfate (Albuterol Sulfate 0.083% Vial.Neb) 2.5 mg NEB Q4-6H PRN PRN Reason: SOA Albuterol Sulfate (Albuterol Sulfate 8 Gm Inhaler) 2 puff IH QID PRN PRN Reason: SOA Aripiprazole (Aripiprazole 5 Mg Tablet) 10 mg PO DAILY [facility] Last Admin: 06/18/25 08:05 Dose: 10 mg Aspirin (Aspirin 81 Mg Tablet.Dr) 81 mg PO DAILYWM2 [facility] Last Admin: 06/18/25 07:46 Dose: 81 mg Budesonide/Formoterol Fumarate (Budesonide/Formoterol Fumarate 160/4.5 Mcg Inhaler) 2 puff IH BID [facility] Last Admin: 06/18/25 08:03 Dose: 2 puff Cetirizine HCl (Cetirizine Hcl 10 Mg Tablet) 10 mg PO DAILY [facility] Last Admin: 06/18/25 08:05 Dose: 10 mg Clopidogrel Bisulfate (Clopidogrel Bisulfate 75 Mg Tablet) 75 mg PO DAILY [facility] Last Admin: 06/18/25 08:06 Dose: 75 mg Diazepam (Diazepam 5 Mg Tablet) 10 mg PO DAILY PRN PRN Reason: ANXIETY Donepezil HCl (Donepezil Hcl 10 Mg Tablet) 10 mg PO BEDTIME [facility] Enoxaparin Sodium (Enoxaparin Sodium 40 Mg/0.4 Ml Syr) 40 mg SUBCUT DAILY [facility] Famotidine (Famotidine 20 Mg Tablet) 20 mg PO QDAC2 [facility] Last Admin: 06/18/25 08:05 Dose: 20 mg Fluoxetine HCl (Fluoxetine Hcl 20 Mg Capsule) 80 mg PO DAILY [facility] Last Admin: 06/18/25 08:06 Dose: 80 mg Furosemide (Furosemide 40 Mg Tablet) 40 mg PO QDAC2 [facility] Last Admin: 06/18/25 08:06 Dose: 40 mg CEFTRIAXONE/D5W 1 GM PREMIX (Rocephin 1 Gm/50 Ml D5w) 1 gm in 50 mls @ 100 mls/hr IV BEDTIME [facility] Stop: 06/20/25 21:59 Last Admin: 06/17/25 21:33 Dose: 100 mls/hr Ibuprofen (Ibuprofen 600 Mg Tablet) 600 mg PO Q6H PRN PRN Reason: Mild Pain Insulin Glargine (Insulin Glargine,Hum.Rec.Anlog 100 Units/Ml) 30 unit SUBCUT BID [facility] Last Admin: 06/18/25 10:40 Dose: 30 unit Insulin Human Lispro (Insulin Lispro 100 Unit/Ml (10 Ml Vial)) 0 unit SUBCUT PRN PRN; Protocol PRN Reason: Hyperglycemia Last Admin: 06/18/25 11:58 Dose: 2 unit Losartan Potassium (Losartan Potassium 25 Mg Tablet) 25 mg PO DAILY [facility] Last Admin: 06/18/25 08:05 Dose: 25 mg Magnesium Oxide (Magnesium Oxide 400 Mg Tablet) 800 mg PO MoWeFr@09 [facility] Magnesium Oxide (Magnesium Oxide 400 Mg Tablet) 400 mg PO SuTuThSa@09 [facility] Memantine (Memantine Hcl 10 Mg Tablet) 5 mg PO BID [facility] Last Admin: 06/18/25 08:04 Dose: 5 mg Methimazole (Methimazole 10 Mg Tablet) 2.5 mg PO SuTuThSa@09 [facility] Last Admin: 06/18/25 11:20 Dose: 2.5 mg Methimazole (Methimazole 10 Mg Tablet) 5 mg PO MoWeFr@0900 [facility] Non-Formulary Medication (Conjugated Estrogens [Premarin]) 1.25 mg PO DAILY [facility] Last Admin: 06/18/25 08:07 Dose: Not Given Oxycodone/Acetaminophen (Oxycodone/Acetaminophen 10/325 Mg Tablet) 1 tab PO Q4H PRN PRN Reason: MODERATE PAIN Last Admin: 06/18/25 10:38 Dose: 1 tab Pantoprazole Sodium (Pantoprazole Sodium 40 Mg Tablet.Dr) 40 mg PO QDAC2 [facility] Last Admin: 06/18/25 08:06 Dose: 40 mg Potassium Chloride (Potassium Chloride 20 Meq Tab) 20 meq PO DAILYWM2 [facility] Last Admin: 06/18/25 07:46 Dose: 20 meq Pregabalin (Pregabalin 50 Mg Capsule) 200 mg PO 2XD [facility] Last Admin: 06/18/25 08:06 Dose: 200 mg Ranolazine (Ranolazine 500 Mg Tab.Er.12h) 1,000 mg PO BID [facility] Last Admin: 06/18/25 08:05 Dose: 1,000 mg Rosuvastatin Calcium (Rosuvastatin Calcium 10 Mg Tablet) 10 mg PO DAILY [facility] Last Admin: 06/18/25 08:05 Dose: 10 mg Sodium Chloride (0.9% Sodium Chloride 10 Ml Disp.Syrin) 1 syr IVF PRN PRN PRN Reason: To flush IV Solifenacin (Solifenacin Succinate 5 Mg Tablet) 10 mg PO DAILY [facility] Last Admin: 06/18/25 08:06 Dose: 10 mg Tiotropium [place] (Tiotropium [place] 18 Mcg Cap.W.Dev) 1 cap IH DAILY [facility] Last Admin: 06/18/25 08:03 Dose: 1 cap Tizanidine HCl (Tizanidine Hcl 4 Mg Tablet) 4 mg PO BID [facility] Last Admin: 06/18/25 08:04 Dose: 4 mg Trazodone HCl (Trazodone Hcl 50 Mg Tablet) 300 mg PO BEDTIME [facility] conjugated estrogens 1.25 mg tablet (Premarin) 1.25 mg PO DAILY 04/07/15 [History Confirmed 06/17/25] losartan 25 mg tablet 25 mg PO QDAY 01/08/21 [History Confirmed 06/17/25] pantoprazole 40 mg tablet,delayed release 40 mg PO QDAY 01/08/21 [History Confirmed 06/17/25] magnesium oxide 400 mg (241.3 mg magnesium) tablet 800 mg PO MOWEFR 01/29/22 [History Confirmed 06/17/25] insulin glargine 100 unit/mL (3 mL) subcutaneous pen (Lantus Solostar U-100 Insulin) 50 unit subcut BID 06/26/22 [History Confirmed 06/17/25] methimazole 5 mg tablet 5 mg PO .COMPLEX 06/26/22 [History Confirmed 06/17/25] furosemide 40 mg tablet 40 mg PO DAILY 11/13/22 [History Confirmed 06/17/25] insulin lispro 100 unit/mL subcutaneous pen (Admelog SoloStar U-100 Insulin lispro) 20 - 30 unit subcut ACHS 11/13/22 [History Confirmed 06/17/25] potassium chloride 20 mEq tablet,extended release(part/cryst) 20 meq PO DAILY 11/13/22 [History Confirmed 06/17/25] solifenacin 10 mg tablet 10 mg PO DAILY 11/13/22 [History Confirmed 06/17/25] fluoxetine 40 mg capsule 80 mg (2 x 40 mg) PO QAM 30 days #60 caps 02/12/23 [Rx Confirmed 06/17/25] trazodone 300 mg tablet 300 mg PO QHS PRN insomnia #30 tabs 02/12/23 [Rx Confirmed 06/17/25] famotidine 20 mg tablet 20 mg PO DAILY 03/26/24 [History Confirmed 06/17/25] memantine 5 mg tablet 5 mg PO BID 03/26/24 [History Confirmed 06/17/25] albuterol sulfate 2.5 mg/3 mL (0.083 %) solution for nebulization 2.5 mg (3 mL) inhalation Q4-6H PRN shortness of breath or wheezing #90 mL 03/30/24 [Rx Confirmed 06/17/25] albuterol sulfate 90 mcg/actuation aerosol inhaler (Ventolin HFA) 2 puff inhalation QID PRN shortness of breath or wheezing #8.5 grams 03/30/24 [Rx Confirmed 06/17/25] clopidogrel 75 mg tablet (Plavix) 75 mg PO QDAY 07/06/24 [History Confirmed 06/17/25] oxycodone-acetaminophen 10 mg-325 mg tablet (Percocet) 1 tab PO Q4H PRN pain 07/06/24 [History Confirmed 06/17/25] aripiprazole 10 mg tablet 10 mg PO DAILY 01/06/25 [History Confirmed 06/17/25] aspirin 81 mg tablet,delayed release 81 mg PO DAILY 01/06/25 [History Confirmed 06/17/25] cetirizine 10 mg tablet 10 mg PO DAILY 01/06/25 [History Confirmed 06/17/25] diazepam 10 mg tablet 10 mg PO DAILY PRN anxiety 01/06/25 [History Confirmed 06/17/25] donepezil 10 mg tablet 10 mg PO DAILY 01/06/25 [History Confirmed 06/17/25] doxycycline monohydrate 100 mg capsule 100 mg PO BID #14 caps 01/06/25 [Rx Con firmed 06/17/25] methimazole 5 mg tablet 2.5 mg PO .s,t,th,s 01/06/25 [History Confirmed 06/17/25] pen needle, diabetic 32 gauge x 5/32" (TRUEplus Pen Needle) 01/06/25 [History Confirmed 06/17/25] ranolazine 1,000 mg tablet,extended release,12 hr 1,000 mg PO BID 01/06/25 [History Confirmed 06/17/25] rosuvastatin 10 mg tablet 10 mg PO DAILY 01/06/25 [History Confirmed 06/17/25] tizanidine 4 mg tablet 4 mg PO DAILY 01/06/25 [History Confirmed 06/17/25] doxycycline hyclate 100 mg capsule 100 mg PO 2XD 06/17/25 [History Confirmed 06/17/25] fluticasone fur. 100 mcg-umeclid 62.5 mcg-vilant 25 mcg inhalat.powder (Trelegy Ellipta) 1 ea inhalation DAILY 06/17/25 [History Confirmed 06/17/25] magnesium oxide 400 mg PO SUTUTHSA 06/17/25 [History Confirmed 06/17/25] plecanatide 3 mg tablet (Trulance) 3 mg PO DAILY 06/17/25 [History Confirmed 06/17/25] prednisone 20 mg tablet 20 mg PO 2XD 06/17/25 [History Confirmed 06/17/25] tirzepatide 7.5 mg/0.5 mL subcutaneous pen injector (Mounjaro) 7.5 mg subcut WEEKLY 06/17/25 [History Confirmed 06/17/25] pregabalin 200 mg capsule 200 mg PO 2XD 06/18/25 [History Confirmed 06/18/25] Opioid Naive vs. Tolerant Does Patient Take Opioids?: Yes Is Patient Opioid Naive?: No What is Opioid Naive?: *Opioid Naive implies the patient is not already taking opioids or not chronically receiving opioids on a daily basis. *PRN dosing is not "usually" associated with tolerance. *Patients are at higher risk of over-sedation and aspiration. Is Patient Opioid Tolerant?: No What is Opioid Tolerant?: *Opioid Tolerance implies less than the expected response to an opioid. *Acquired tolerance is defined by the patient taking 60mg of oral morphine daily (or equianalgesic dose of another opioid) for 1 week or more. *Often associated with chronic pain. *May take more than usual dose to achieve desired pain control. Review of Systems Constitutional: Reports Fatigue, Weakness and Loss of appetite; Denies Fever Head: Reports Normocephalic and Atraumatic Cardiovascular: Denies Chest pain, Chest Pressure or Edema Respiratory: Reports Cough; Denies Shortness of air Gastrointestinal: Denies Nausea, Vomiting, Diarrhea, Abdominal pain or Melena Genitourinary: Reports Dysuria and Other (+suprapubic pain ); Denies Frequency Neurological: Reports Dizziness, Memory Loss, Problems with walking and Other (+near syncopal episode ); Denies Headache Physical examination Most Recent Vital Signs: Most Recent Vital Signs Temperature 96.9 F L 06/18/25 10:00 Temperature Source Temporal Artery Scan 06/18/25 10:00 Temperature Source Temporal Artery Scan 06/17/25 14:06 Pulse Rate 68 06/18/25 10:00 Respiratory Rate 16 06/18/25 10:00 Blood Pressure 107/64 06/18/25 10:00 Blood Pressure Mean 78 06/18/25 10:00 Blood Pressure Left Arm 118/69 06/17/25 23:03 Blood Pressure Location Left Arm 06/18/25 10:00 Blood Pressure Position Supine 06/18/25 10:00 O2 Sat by Pulse Oximetry 97 06/18/25 10:00 Oxygen Delivery Method Nasal Cannula 06/18/25 10:56 Oxygen Flow Rate 3.5 06/18/25 10:00 Height 5 ft 6 in 06/17/25 23:03 Weight 99.9 kg 06/17/25 23:03 Telemetry Type Remote Telemetry 06/18/25 07:00 Telemetry Monitoring Continues 06/18/25 07:00 Telemetry Heart Rate 76 06/18/25 07:00 Telemetry SPO2 95 02/05/24 07:00 EKG MA Interval 0.22 H 06/18/25 07:00 EKG QRS Interval 0.08 06/18/25 07:00 Telemetry Strip Reading SR with 1st degree AVB 06/18/25 07:00 Appearance: Positive No Apparent Distress and Alert and Oriented x3 Skin: Positive [place], Warm and Good Turgor HEENT: Positive Normocephalic and Atraumatic Neck: Positive Supple and Midline Trachea Chest/Lungs: Positive Symmetrical With Equal Breath Sounds and Rhonci (RUL ) Heart: Positive RRR GI/: Positive Soft, Nontender, Bowel Sounds Normal and No Distention Extremities: Negative Edema Neurological: Positive Cranial Nerves Intact, Alert, Oriented and Other (+generalized weakness ) Psychiatric: Positive Oriented x4, Appropriate Mood, Appropriate Affect and Other (forgetful about pmhx ) Labs This Visit Labs This Visit: Labs This Visit 06/17/25 06/17/25 06/17/25 14:40 14:45 14:50 WBC 7.50 RBC 4.17 L Hgb 12.4 Hct 38.5 MCV 92.3 MCH 29.7 MCHC 32.2 RDW Coeff of Wilson 14.4 Plt Count 212 Immature Gran % (Auto) 0.3 Neut % (Auto) 63.1 Lymph % (Auto) 20.4 [place]oun % (Auto) 14.8 H Eos % (Auto) 0.9 Baso % (Auto) 0.5 Neut # (Auto) 4.7 Lymph # (Auto) 1.5 [place] # (Auto) 1.1 Eos # (Auto) 0.1 Baso # (Auto) 0.0 Immature Gran # (Auto) 0.0 PT 10.8 INR 1.04 Puncture Site Rbrach Base Excess 2.5 O2 Saturation 97.7 ABG pH 7.40 ABG pCO2 44.0 ABG pO2 99.0 ABG HCO3 27.3 ABG Total CO2 28.7 H Hemoglobin 1.1 Oxyhemoglobin 90.9 L Carboxyhemoglobin 6.8 H Total Hemoglobin 12.5 O2 Delivery Device Cannula Oxygen Liter Flow 2.00 Sodium 132.8 L Potassium 4.39 Chloride 96.6 L Carbon Dioxide 27.7 Anion Gap 12.89 BUN 17.0 Creatinine 0.57 L Estimated GFR (MDRD) 107.00 BUN/Creatinine Ratio 29.82 Glucose 199.0 H Hemoglobin A1c Lactic Acid 1.79 Calcium 9.05 Magnesium Total Bilirubin 0.41 AST 20.5 ALT 16.3 Alkaline Phosphatase 118.9 Ammonia Total Protein 6.42 Albumin 3.44 L Globulin 2.98 Albumin/Globulin Ratio 1.15 Procalcitonin < 0.05 TSH D-Dimer 557.69 H Urine Color Urine Clarity Urine pH Ur Specific [place] Urine Protein Urine Glucose (UA) Urine Ketones Urine Blood Urine Nitrite Urine Bilirubin Urine Urobilinogen Ur Leukocyte Esterase Urine Microscopic WBC Ur Squamous Epith Cells Urine Bacteria Urine Opiates Screen Ur Oxycodone Screen Urine Methadone Screen Ur Barbiturates Screen U Tricyclic Antidepress Ur Phencyclidine Scrn Ur Amphetamine Screen U Methamphetamines Scrn U Benzodiazepines Scrn Urine Cocaine Screen U Cannabinoids Screen Influ A Molecular Assay Negative by naat Influ B Molecular Assay Negative by naat RSV Antigen Negative by naat SARS CoV-2 RNA Rapid SAMANTHA Negative 06/17/25 06/17/25 06/17/25 16:00 18:59 19:37 WBC RBC Hgb Hct MCV MCH MCHC RDW Coeff of Wilson Plt Count Immature Gran % (Auto) Neut % (Auto) Lymph % (Auto) [place] % (Auto) Eos % (Auto) Baso % (Auto) Neut # (Auto) Lymph # (Auto) [place] # (Auto) Eos # (Auto) Baso # (Auto) Immature Gran # (Auto) PT INR Puncture Site Base Excess O2 Saturation ABG pH ABG pCO2 ABG pO2 ABG HCO3 ABG Total CO2 Hemoglobin Oxyhemoglobin Carboxyhemoglobin Total Hemoglobin O2 Delivery Device Oxygen Liter Flow Sodium Potassium Chloride Carbon Dioxide Anion Gap BUN Creatinine Estimated GFR (MDRD) BUN/Creatinine Ratio Glucose Hemoglobin A1c Lactic Acid Calcium Magnesium 1.25 L Total Bilirubin AST ALT Alkaline Phosphatase Ammonia Total Protein Albumin Globulin Albumin/Globulin Ratio Procalcitonin TSH 2.610 D-Dimer Urine Color Beti Urine Clarity Slightly Urine pH 5.5 Ur Specific [place] 1.015 Urine Protein 1+ H Urine Glucose (UA) Negative Urine Ketones Negative Urine Blood 1+ H Urine Nitrite Negative Urine Bilirubin Negative Urine Urobilinogen 0.2 Ur Leukocyte Esterase Trace H Urine Microscopic WBC Tntc Ur Squamous Epith Cells 5-10 Urine Bacteria 4+ Urine Opiates Screen Negative Ur Oxycodone Screen Negative Urine Methadone Screen Negative Ur Barbiturates Screen Negative U Tricyclic Antidepress Negative Ur Phencyclidine Scrn Negative Ur Amphetamine Screen Negative U Methamphetamines Scrn Negative U Benzodiazepines Scrn Positive H Urine Cocaine Screen Negative U Cannabinoids Screen Negative Influ A Molecular Assay Influ B Molecular Assay RSV Antigen SARS CoV-2 RNA Rapid SAMANTHA 06/17/25 06/18/25 19:42 04:40 WBC 5.44 RBC 4.10 L Hgb 12.2 Hct 38.6 MCV 94.1 MCH 29.8 MCHC 31.6 L RDW Coeff of Wilson 14.5 Plt Count 202 Immature Gran % (Auto) 0.2 Neut % (Auto) 56.0 Lymph % (Auto) 26.8 [place] % (Auto) 15.1 H Eos % (Auto) 1.5 Baso % (Auto) 0.4 Neut # (Auto) 3.1 Lymph # (Auto) 1.5 [place] # (Auto) 0.8 Eos # (Auto) 0.1 Baso # (Auto) 0.0 Immature Gran # (Auto) 0.0 PT INR Puncture Site Base Excess O2 Saturation ABG pH ABG pCO2 ABG pO2 ABG HCO3 ABG Total CO2 Hemoglobin Oxyhemoglobin Carboxyhemoglobin Total Hemoglobin O2 Delivery Device Oxygen Liter Flow Sodium 138.1 Potassium 4.12 Chloride 100.2 Carbon Dioxide 33.4 H Anion Gap 8.62 BUN 12.1 Creatinine 0.49 L Estimated GFR (MDRD) 127.00 BUN/Creatinine Ratio 24.69 Glucose 155.5 H Hemoglobin A1c 6.50 H Lactic Acid Calcium 8.49 Magnesium 1.52 L Total Bilirubin 0.33 AST 24.7 ALT 15.9 Alkaline Phosphatase 113.8 Ammonia 17.3 Total Protein 5.90 L Albumin 3.12 L Globulin 2.78 Albumin/Globulin Ratio 1.12 Procalcitonin TSH D-Dimer Urine Color Urine Clarity Urine pH Ur Specific [place] Urine Protein Urine Glucose (UA) Urine Ketones Urine Blood Urine Nitrite Urine Bilirubin Urine Urobilinogen Ur Leukocyte Esterase Urine Microscopic WBC Ur Squamous Epith Cells Urine Bacteria Urine Opiates Screen Ur Oxycodone Screen Urine Methadone Screen Ur Barbiturates Screen U Tricyclic Antidepress Ur Phencyclidine Scrn Ur Amphetamine Screen U Methamphetamines Scrn U Benzodiazepines Scrn Urine Cocaine Screen U Cannabinoids Screen Influ A Molecular Assay Influ B Molecular Assay RSV Antigen SARS CoV-2 RNA Rapid SAMANTHA Microbiology This Visit 06/17/25 16:00 Urine,Random Urine Culture - Preliminary Imaging Imaging: EXAMINATION: HEAD CT WITHOUT CONTRAST HISTORY: Altered mental status. TECHNIQUE: Noncontrast CT of the brain was performed with images acquired from skull base to vertex. 2-D coronal and sagittal reformatted images were obtained from the axial source images. Contrast Dose: None. CT Dose Reduction Techniques Performed: Yes. COMPARISON: 02/03/2024. FINDINGS: Topogram demonstrates no significant abnormality. Intraparenchymal hemorrhage: None. Parenchyma: Normal burgess-white differentiation. No mass effect or midline shift. Extra-axial spaces and basal cisterns: Normal. Ventricles: Normal size and morphology for age. Paranasal sinuses and mastoid air cells: Visualized portions of paranasal sinuses are clear. Mastoid air cells are clear. Orbits: Normal visualized portions. Sella/Skull Base: Normal. Other: Scalp and visualized soft tissues are normal. Calvarium is normal. IMPRESSION: 1. No intracranial hemorrhage. 2. Unremarkable noncontrast CT scan of the brain. EXAM: CHEST RADIOGRAPH TECHNIQUE: Two views. Frontal and lateral. HISTORY: Cough. COMPARISON: 04/25/2025. FINDINGS: The lungs show no consolidation, pleural effusion or pneumothorax. Underlying chronic interstitial change. Mild scarring in both lower lobes. Cardiomediastinal silhouette and pulmonary vessels are within normal limits. Upper abdomen is unremarkable. No acute bony abnormality. Small calcific density superior to the right humeral head maybe a soft tissue calcification or rotator cuff calcification. IMPRESSION: 1. No acute cardiopulmonary disease. EXAM: CHEST CT WITHOUT CONTRAST 06/17/2025 HISTORY: Bilateral coarse breath sounds TECHNIQUE: Axial CT images were obtained through the chest without the administration of intravenous contrast. Coronal and sagittal reformatted images were also submitted for interpretation. COMPARISON: CT chest 04/12/2025. FINDINGS: The lower neck is within normal limits. Major airways are patent. No pneumothorax or pleural fluid. Enlarging mass in the posterior right upper lobe measuring 5.3 x 4.9 cm (series 3, image 26), previously 3.9 x 4.2 cm. Calcified granuloma. Mild emphysematous changes. Mild bibasilar atelectasis and/or pneumonitis. Mild cardiomegaly. The unenhanced thoracic aorta is normal in size. Atherosc lerosis in the aorta. Coronary calcifications. Enlarged pulmonary trunk measuring 3.10 cm suggestive of pulmonary arterial hypertension. No lymphadenopathy allowing for limitation by lack of IV contrast. Soft tissue structures are unremarkable. Cholecystectomy clips. Small hiatal hernia. Possible hepatic steatosis. Correlation with LFTs recommended. The bones are intact. IMPRESSION: - Enlarging mass in the posterior right upper lobe measuring 5.3 x 4.9 cm, previously 3.9 x 4.2 cm. Neoplasm is possibility. Tissue sampling and/or further evaluation with PET scan advised. - Enlarged pulmonary trunk measuring 3.10 cm suggestive of pulmonary arterial hypertension. - Atherosclerosis in the aorta. Coronary calcifications. Mild cardiomegaly. - Cholecystectomy clips. Small hiatal hernia. Possible hepatic steatosis. Correlation with LFTs recommended. EXAM: CT OF THE ABDOMEN AND PELVIS WITHOUT CONTRAST. TECHNIQUE: CT of the abdomen and pelvis was performed without the use of con trast. Multiplanar reformats were performed. HISTORY: Suprapubic pain. COMPARISON: None. FINDINGS:Evaluation of solid organs and blood vessels is suboptimal without the benefit of contrast. Imaged lower thorax: No significant findings. There appears to be a duodenal diverticulum near the pancreatic uncinate process. Liver: The hepatomegaly. Gallbladder/Bile Ducts: No biliary dilation. The gallbladder is absent.. Spleen: Unremarkable. Pancreas: Normal. Adrenals: No discrete lesions. Kidneys/Ureters: No acute findings. Bowel/mesentery/peritoneum: No bowel obstruction. Normal appendix. No free fluid or free air.No inflammatory bowel changes are evident.. Abominal Wall: No defects. Retroperitoneum/vessels: No aortic aneurysm. No adenopathy. Pelvis: The bladder wall contour is normal.. Bones: No aggressive lesion identified.Lumbar disc disease and L5-S1. Symmetric degenerative change of the hips. IMPRESSION: 1. Duodenal diverticulum. 2. Post cholecystectomy 3. Hepatomegaly. 4. Degenerative change of the spine hips and pelvis. Review Statement Review Statement: I have independently reviewed and interpreted the labs/EKGs/imaging that were ordered by the ER provider. I have reviewed all outside records that are available currently in our EMR including imaging/notes/labs from previous visit s. Plan Plan: 1. Acute metabolic encephalopathy in setting of UTI - Improved today 2. UTI - Rocephin ordered, uc pending 3. Hypomagnesemia - 2 gm mag rider ordered, cont home supplement 4. Right lung cancer - sees Dr. Silverman, outpt PET scan scheduled, plan to discuss options following that 5. COPD - Cont home meds 6. DMT2 - A1c very controlled, will do lantus 30 mg bid instead of 50 bid to avoid lows. Humalog sliding scale, accuchecks achs 7. Near syncope - ct head negative. Check orthostats. Tele. 8. Hyperlipidemia - Cont home meds 9. GERD - Cont home meds 10. Hypertension - Cont home meds DVT Prophylaxis: Lovenox Time Spent: Greater than 80 minutes spent with patient, 50% of the time spent with this patient was devoted to counseling and coordination of care. [facility] minutes spent discussing advance care planning. Smoking Cessation: 3 minutes spent discussing smoking cessation. Admit to: Obs Discussed Plan of Care with Dr. Radha Nguyen. Medications Medication Orders: Medications Ordered Category Date Time Status 0.9 % Sodium Chloride [Saline Flush] Meds 06/17/25 14:32 Active 1 syr IVF PRN PRN Acetaminophen [Tylenol] Meds 06/17/25 21:15 Active 650 mg PO Q4H PRN Albuterol Sulfate 0.083% Neb [Albuterol 0.083% Neb] Meds 06/18/25 00:10 Active 2.5 mg NEB Q4-6H PRN SOA SOA Albuterol Sulfate [Ventolin Hfa] Meds 06/18/25 00:10 Active 2 puff IH QID PRN SOA SOA Aripiprazole [Abilify] Meds 06/18/25 09:00 Active 10 mg PO DAILY Aspirin [Aspirin EC] Meds 06/18/25 07:30 Active 81 mg PO DAILYWM2 Budesonide/Formoterol Fumarate [Symbicort 160-4.5 Mcg Meds 06/18/25 09:00 Active Inhaler] 2 puff IH BID Ceftriaxone/D5w 1 gm Premix [Rocephin 1 gm/50 ml D5w] Meds 06/17/25 22:00 Active 1 gm in 50 ml IV BEDTIME Cetirizine HCl [Zyrtec] Meds 06/18/25 09:00 Active 10 mg PO DAILY Clopidogrel Bisulfate [Plavix] Meds 06/18/25 09:00 Active 75 mg PO DAILY Diazepam [Valium] Meds 06/18/25 00:10 Active 10 mg PO DAILY PRN ANXIETY ANXIETY Donepezil HCl [Aricept] Meds 06/18/25 21:00 Active 10 mg PO BEDTIME Enoxaparin Sodium [Lovenox] Meds 06/18/25 09:00 Active 40 mg SUBCUT DAILY Famotidine [Pepcid] Meds 06/18/25 09:00 Active 20 mg PO QDAC2 Fluoxetine HCl [Prozac] Meds 06/18/25 09:00 Active 80 mg PO DAILY Furosemide [Lasix Tab] Meds 06/18/25 09:00 Active 40 mg PO QDAC2 Ibuprofen [Motrin] Meds 06/18/25 09:04 Active 600 mg PO Q6H PRN Insulin Glargine,Hum.rec.anlog [Lantus] Meds 06/18/25 10:20 Active 30 unit SUBCUT BID Losartan Potassium [Cozaar] Meds 06/18/25 09:00 Active 25 mg PO DAILY Magnesium Oxide [Mag-Ox] Meds 06/19/25 09:00 Active 400 mg PO SuTuThSa@0900 Magnesium Oxide [Mag-Ox] Meds 06/20/25 09:00 Active 800 mg PO MoWeFr@0900 Magnesium Sulfate in Water [Magnesium Sulf 2 G/50 ml Meds 06/18/25 09:26 Active Bag] 2 gm in 50 ml IV ONCE Memantine HCl [Namenda] Meds 06/18/25 09:00 Active 5 mg PO BID Methimazole [Tapazole] Meds 06/18/25 10:30 Active 2.5 mg PO SuTuThSa@00 Methimazole [Tapazole] Meds 06/20/25 09:00 Active 5 mg PO MoWeFr@00 Oxycodone-Acetaminophen [Percocet 10-325] Meds 06/18/25 10:18 Active 1 tab PO Q4H PRN MODPAIN MODERATE PAIN Pantoprazole Sodium [Protonix] Meds 06/18/25 09:00 Active 40 mg PO QDAC2 Potassium Chloride [K-Dur] Meds 06/18/25 07:30 Active 20 meq PO DAILYWM2 Pregabalin [Lyrica] Meds 06/18/25 09:00 Active 200 mg PO 2XD Ranolazine [Ranexa] Meds 06/18/25 09:00 Active 1,000 mg PO BID Rosuvastatin Calcium [Crestor] Meds 06/18/25 09:00 Active 10 mg PO DAILY Solifenacin Succinate [Vesicare] Meds 06/18/25 09:00 Active 10 mg PO DAILY Tiotropium [place] [Spiriva] Meds 06/18/25 09:00 Active 1 cap IH DAILY Tizanidine HCl [Zanaflex] Meds 06/18/25 09:00 Active 4 mg PO BID Trazodone HCl [Desyrel] Meds 06/18/25 21:00 Active 300 mg PO BEDTIME conjugated estrogens [Premarin] Meds 06/18/25 09:00 Active 1.25 mg PO DAILY
[2025-06-18] MEDS: TAPAZOLE PO SCH (11:20)
[2025-06-18] MEDS: HUMALOG (10 ML VIAL) SUBCUT PRN (11:58)
[2025-06-18] MEDS: ARICEPT PO SCH (20:10)
[2025-06-18] MEDS: DESYREL PO SCH (20:11)
[2025-06-19 05:21] LABS: IMMATURE GRANULOCYTE # (AUTO) 0.0 (0.0-1.0); IMMATURE GRANULOCYTE % (AUTO) 0.4 % (0.0-5.0); RDW COEFFICIENT OF VARIATION 14.2 % (11.6-14.8)
[2025-06-19 05:36] LABS: CREATININE 0.49 mg/dL (0.60-1.30)
[2025-06-19] MEDS: LOVENOX SUBCUT SCH (08:11)
[2025-06-19] MEDS: MAG-OX PO SCH (08:15)
[2025-06-19 10:57] LABS: ABG O2 HGB 95.2 % (95-100); ABG PH 7.39 (7.35-7.45); ABG PO2 81.0 mmHg (85-100); BEecf 18.0 (-2.0-3.0); HCO3 43.0 (21-28); TCO2 45.2 (19-24)
[2025-06-19 10:58] LABS: ABG PCO2 71.0 mmHg (35-45)
[2025-06-19] MEDS: SOLU-MEDROL 40 MG IVP SCH (11:28)
[2025-06-19] MEDS: NICODERM 21 MG TD SCH (11:29)
[2025-06-19] MEDS: ALBUTEROL 0.083% NEB NEB PRN (11:35)
[2025-06-19] MEDS: DUONEB NEB SCH (11:42)
[2025-06-19 12:58] LABS: ABG O2 HGB 94.2 % (95-100); ABG PH 7.38 (7.35-7.45); ABG PO2 78.0 mmHg (85-100); BEecf 15.7 (-2.0-3.0); FI02 32.0 %; HCO3 40.8 (21-28); TCO2 42.9 (19-24)
[2025-06-19 13:02] LABS: ABG PCO2 69.0 mmHg (35-45)
--- NOTE | 2025-06-19 13:21 | PCM.PROG ---
Date/Time Seen Date Seen by Provider: 06/19/25 Time Seen by Provider: 08:40 Provider Provider: Danielle Pop PA-C, [facility] Chief Complaint Chief Complaint: AMS Subjective Subjective: Patient had no issues overnight. Daughter and brother visiting this morning, states patient is confused from her baseline still. State she has hx of dementia and is often times forgetful, but not like this. Usually drives, takes her own insulin, etc. Objective Appearance: Positive No Apparent Distress and Other (Patient answers questions, sometimes appropriate, fatigued ) Chest/Lungs: Positive Symmetrical With Equal Breath Sounds and Wheezes (worse RUL, coughing ) Heart: Positive RRR and Pulses Normal GI/: Positive Soft, Nontender, Bowel Sounds Normal and No Distention Neurological: Positive Cranial Nerves Intact, Alert, Disorinted (knows she is in hospital but unsure of why or the date, wants to nap alot since yesterday ) and Other (+generalized weakness, unsteady gait to and from bathroom ) Vital Signs Vital Signs: Vital Signs: Last 24 Hours 06/18/25 14:00 06/18/25 14:00 06/18/25 14:00 Temperature 97.2 F L Temperature Source Temporal Artery Scan Pulse Rate 64 Respiratory Rate 16 Blood Pressure 107/83 Blood Pressure Mean 91 Blood Pressure Location Left Arm Blood Pressure Position Supine O2 Sat by Pulse Oximetry 98 Oxygen Delivery Method Nasal Cannula Nasal Cannula Nasal Cannula Oxygen Flow Rate 3.5 3 Fraction of Inspired Oxygen (FIO2) Telemetry Type Telemetry Monitoring Telemetry Heart Rate EKG NJ Interval EKG QRS Interval Telemetry Strip Reading 06/18/25 15:00 06/18/25 15:56 06/18/25 17:00 Temperature Temperature Source Pulse Rate Respiratory Rate Blood Pressure Blood Pressure Mean Blood Pressure Location Blood Pressure Position O2 Sat by Pulse Oximetry Oxygen Delivery Method Nasal Cannula Nasal Cannula Nasal Cannula Oxygen Flow Rate Fraction of Inspired Oxygen (FIO2) Telemetry Type Telemetry Monitoring Telemetry Heart Rate EKG NJ Interval EKG QRS Interval Telemetry Strip Reading 06/18/25 17:47 06/18/25 17:48 06/18/25 19:00 Temperature 97.0 F L Temperature Source Temporal Artery Scan Pulse Rate 65 Respiratory Rate 18 Blood Pressure 119/60 Blood Pressure Mean 79 Blood Pressure Location Left Arm Blood Pressure Position Supine O2 Sat by Pulse Oximetry 98 Oxygen Delivery Method Nasal Cannula Nasal Cannula Nasal Cannula Oxygen Flow Rate 3.5 Fraction of Inspired Oxygen (FIO2) Telemetry Type Telemetry Monitoring Telemetry Heart Rate EKG NJ Interval EKG QRS Interval Telemetry Strip Reading 06/18/25 19:00 06/18/25 19:20 06/18/25 20:00 Temperature Temperature Source Pulse Rate Respiratory Rate Blood Pressure Blood Pressure Mean Blood Pressure Location Blood Pressure Position O2 Sat by Pulse Oximetry Oxygen Delivery Method Nasal Cannula Nasal Cannula Oxygen Flow Rate 3 Fraction of Inspired Oxygen (FIO2) Telemetry Type Remote Telemetry Telemetry Monitoring Continues Telemetry Heart Rate 68 EKG NJ Interval 0.18 EKG QRS Interval 0.09 Telemetry Strip Reading SR 06/18/25 20:00 06/18/25 21:00 06/18/25 21:09 Temperature 98.7 F Temperature Source Temporal Artery Scan Pulse Rate 73 Respiratory Rate 16 Blood Pressure 103/60 Blood Pressure Mean 74 Blood Pressure Location Left Arm Blood Pressure Position Supine O2 Sat by Pulse Oximetry 96 Oxygen Delivery Method Nasal Cannula Nasal Cannula Nasal Cannula Oxygen Flow Rate 3 3 Fraction of Inspired Oxygen (FIO2) Telemetry Type Telemetry Monitoring Telemetry Heart Rate EKG NJ Interval EKG QRS Interval Telemetry Strip Reading 06/18/25 21:57 06/18/25 23:00 06/19/25 00:00 Temperature Temperature Source Pulse Rate Respiratory Rate Blood Pressure Blood Pressure Mean Blood Pressure Location Blood Pressure Position O2 Sat by Pulse Oximetry Oxygen Delivery Method Nasal Cannula Nasal Cannula Nasal Cannula Oxygen Flow Rate Fraction of Inspired Oxygen (FIO2) Telemetry Type Telemetry Monitoring Telemetry Heart Rate EKG NJ Interval EKG QRS Interval Telemetry Strip Reading 06/19/25 01:00 06/19/25 01:00 06/19/25 02:00 Temperature Temperature Source Pulse Rate Respiratory Rate Blood Pressure Blood Pressure Mean Blood Pressure Location Blood Pressure Position O2 Sat by Pulse Oximetry Oxygen Delivery Method Nasal Cannula Nasal Cannula Oxygen Flow Rate Fraction of Inspired Oxygen (FIO2) Telemetry Type Remote Telemetry Telemetry Monitoring Continues Telemetry Heart Rate 78 EKG NJ Interval 0.16 EKG QRS Interval 0.09 Telemetry Strip Reading SR 06/19/25 02:00 06/19/25 03:00 06/19/25 04:00 Temperature Temperature Source Axillary Pulse Rate 78 Respiratory Rate Blood Pressure Blood Pressure Mean Blood Pressure Location Blood Pressure Position O2 Sat by Pulse Oximetry Oxygen Delivery Method Nasal Cannula Nasal Cannula Nasal Cannula Oxygen Flow Rate 3 Fraction of Inspired Oxygen (FIO2) Telemetry Type Telemetry Monitoring Telemetry Heart Rate EKG NJ Interval EKG QRS Interval Telemetry Strip Reading 06/19/25 05:00 06/19/25 05:01 06/19/25 05:14 Temperature 97.5 F L Temperature Source Temporal Artery Scan Pulse Rate 80 Respiratory Rate 18 Blood Pressure 117/67 Blood Pressure Mean 83 Blood Pressure Location Left Arm Blood Pressure Position Supine O2 Sat by Pulse Oximetry 94 L Oxygen Delivery Method Nasal Cannula Nasal Cannula Nasal Cannula Oxygen Flow Rate 3.5 3 Fraction of Inspired Oxygen (FIO2) Telemetry Type Telemetry Monitoring Telemetry Heart Rate EKG NJ Interval EKG QRS Interval Telemetry Strip Reading 06/19/25 05:51 06/19/25 07:00 06/19/25 07:00 Temperature Temperature Source Pulse Rate Respiratory Rate Blood Pressure Blood Pressure Mean Blood Pressure Location Blood Pressure Position O2 Sat by Pulse Oximetry Oxygen Delivery Method Nasal Cannula Nasal Cannula Oxygen Flow Rate Fraction of Inspired Oxygen (FIO2) Telemetry Type Remote Telemetry Telemetry Monitoring Continues Telemetry Heart Rate 78 EKG NJ Interval 0.20 EKG QRS Interval 0.10 Telemetry Strip Reading SR 06/19/25 08:00 06/19/25 08:00 06/19/25 08:40 Temperature Temperature Source Pulse Rate 74 Respiratory Rate Blood Pressure 135/77 Blood Pressure Mean Blood Pressure Location Left Arm Blood Pressure Position Sitting O2 Sat by Pulse Oximetry Oxygen Delivery Method Nasal Cannula Nasal Cannula Oxygen Flow Rate 3.5 Fraction of Inspired Oxygen (FIO2) Telemetry Type Telemetry Monitoring Telemetry Heart Rate EKG NJ Interval EKG QRS Interval Telemetry Strip Reading 06/19/25 08:45 06/19/25 08:54 06/19/25 09:00 Temperature Temperature Source Pulse Rate 87 84 Respiratory Rate Blood Pressure 124/48 L 133/91 H Blood Pressure Mean Blood Pressure Location Left Arm Left Arm Blood Pressure Position Standing O2 Sat by Pulse Oximetry Oxygen Delivery Method Nasal Cannula Oxygen Flow Rate Fraction of Inspired Oxygen (FIO2) Telemetry Type Telemetry Monitoring Telemetry Heart Rate EKG NJ Interval EKG QRS Interval Telemetry Strip Reading 06/19/25 09:52 06/19/25 09:52 06/19/25 10:00 Temperature 97 F L Temperature Source Temporal Artery Scan Pulse Rate 73 Respiratory Rate 18 Blood Pressure 136/78 Blood Pressure Mean 97 Blood Pressure Location Left Arm Blood Pressure Position Supine O2 Sat by Pulse Oximetry 97 95 Oxygen Delivery Method Nasal Cannula Nasal Cannula Nasal Cannula Oxygen Flow Rate 3.5 3 Fraction of Inspired Oxygen (FIO2) Telemetry Type Telemetry Monitoring Telemetry Heart Rate EKG NJ Interval EKG QRS Interval Telemetry Strip Reading 06/19/25 11:00 06/19/25 11:39 06/19/25 13:04 Temperature Temperature Source Pulse Rate Respiratory Rate Blood Pressure Blood Pressure Mean Blood Pressure Location Blood Pressure Position O2 Sat by Pulse Oximetry 99 98 Oxygen Delivery Method Nasal Cannula Oxygen Flow Rate Fraction of Inspired Oxygen (FIO2) 32 32 Telemetry Type Telemetry Monitoring Telemetry Heart Rate EKG NJ Interval EKG QRS Interval Telemetry Strip Reading Lab Results Lab Results: Lab Results: Last 24 Hours 06/19/25 06/19/25 06/19/25 12:48 10:46 04:50 WBC 5.35 RBC 3.94 L Hgb 11.8 L Hct 37.8 MCV 95.9 MCH 29.9 MCHC 31.2 L RDW Coeff of Wilson 14.2 Plt Count 199 Immature Gran % (Auto) 0.4 Neut % (Auto) 49.5 Lymph % (Auto) 36.1 [place] % (Auto) 12.1 H Eos % (Auto) 1.3 Baso % (Auto) 0.6 Neut # (Auto) 2.7 Lymph # (Auto) 1.9 [place] # (Auto) 0.7 Eos # (Auto) 0.1 Baso # (Auto) 0.0 Immature Gran # (Auto) 0.0 Puncture Site Rbrach Rbrach Base Excess 15.7 H 18.0 H O2 Saturation 95.2 95.8 ABG pH 7.38 7.39 ABG pCO2 69.0 H 71.0 H ABG pO2 78.0 L 81.0 L ABG HCO3 40.8 H 43.0 H ABG Total CO2 42.9 H 45.2 H Hemoglobin 1.2 0.9 Oxyhemoglobin 94.2 L 95.2 Carboxyhemoglobin 1.9 H 2.0 H Total Hemoglobin 12.1 11.8 O2 Delivery Device Bipap Cannula Oxygen Liter Flow 3.00 FiO2 % 32.0 Sodium 137.1 Potassium 4.12 Chloride 100.3 Carbon Dioxide 35.3 H Anion Gap 5.62 BUN 13.2 Creatinine 0.49 L Estimated GFR (MDRD) 127.00 BUN/Creatinine Ratio 26.93 Glucose 154.0 H Calcium 8.38 L Magnesium 1.67 Total Bilirubin 0.31 AST 28.8 ALT 21.2 Alkaline Phosphatase 147.6 H D Total Protein 6.19 L Albumin 3.18 L Globulin 3.01 Albumin/Globulin Ratio 1.05 Additional Comments Additional Comments: I have independently reviewed and interpreted the labs/EKGs/imaging ordered during this hospital stay. I have reviewed outside records that are available in our EMR that pertain to medical stay including imaging/notes/labs from previous visits. Active Medications Active Medications: Medications Generic Name Dose Route Start Last Admin Trade Name Freq PRN Reason Stop Dose Admin Acetaminophen 650 mg 06/17/25 21:15 06/18/25 20:11 Acetaminophen 325 Mg Tablet PO 650 mg Q4H PRN Administration Mild Pain Albuterol Sulfate 2.5 mg 06/18/25 00:10 06/19/25 11:35 Albuterol Sulfate 0.083% Vial.Neb NEB 2.5 mg Q4-6H PRN Administration SOA Albuterol Sulfate 2 puff 06/18/25 00:10 Albuterol Sulfate 8 Gm Inhaler IH QID PRN SOA Albuterol/Ipratropium 3 ml 06/19/25 11:20 06/19/25 11:43 Ipratropium/Albuterol Vial.Neb NEB Not Given RTQ6H MARIAELENA Aripiprazole 10 mg 06/18/25 09:00 06/19/25 08:19 Aripiprazole 5 Mg Tablet PO 10 mg DAILY MARIAELENA Administration Aspirin 81 mg 06/18/25 07:30 06/19/25 08:17 Aspirin 81 Mg Tablet. PO 81 mg DAILYWM2 MARIAELENA Administration Budesonide/Formoterol Fumarate 2 puff 06/18/25 09:00 06/19/25 08:16 Budesonide/Formoterol Fumarate 160/4.5 Mcg Inhaler IH 2 puff BID MARIAELENA Administration Cetirizine HCl 10 mg 06/18/25 09:00 06/19/25 08:16 Cetirizine Hcl 10 Mg Tablet PO 10 mg DAILY MARIAELENA Administration Clopidogrel Bisulfate 75 mg 06/18/25 09:00 06/19/25 08:17 Clopidogrel Bisulfate 75 Mg Tablet PO 75 mg DAILY MARIAELENA Administration Diazepam 10 mg 06/18/25 00:10 Diazepam 5 Mg Tablet PO DAILY PRN ANXIETY Donepezil HCl 10 mg 06/18/25 21:00 06/18/25 20:10 Donepezil Hcl 10 Mg Tablet PO 10 mg BEDTIME MARIAELENA Administration Enoxaparin Sodium 40 mg 06/19/25 09:00 06/19/25 08:11 Enoxaparin Sodium 40 Mg/0.4 Ml Syr SUBCUT 40 mg DAILY MARIAELENA Administration Famotidine 20 mg 06/18/25 09:00 06/19/25 06:21 Famotidine 20 Mg Tablet PO 20 mg QDAC2 MARIAELENA Administration Fluoxetine HCl 80 mg 06/18/25 09:00 06/19/25 08:16 Fluoxetine Hcl 20 Mg Capsule PO 80 mg DAILY MARIAELENA Administration Furosemide 40 mg 06/18/25 09:00 06/19/25 06:20 Furosemide 40 Mg Tablet PO 40 mg QDAC2 MARIAELENA Administration CEFTRIAXONE/D5W 1 GM PREMIX 1 gm in 50 mls @ 100 mls/hr 06/17/25 22:00 06/18/25 20:12 Rocephin 1 Gm/50 Ml D5w IV 06/20/25 21:59 100 mls/hr BEDTIME MARIAELENA Administration Ibuprofen 600 mg 06/18/25 09:04 Ibuprofen 600 Mg Tablet PO Q6H PRN Mild Pain Insulin Glargine 30 unit 06/18/25 10:20 06/19/25 08:19 Insulin Glargine,Hum.Rec.Anlog 100 Units/Ml SUBCUT 30 unit BID MARIAELENA Administration Insulin Human Lispro 0 unit 06/18/25 11:16 06/18/25 11:58 Insulin Lispro 100 Unit/Ml (10 Ml Vial) SUBCUT 2 unit PRN PRN Administration Hyperglycemia Protocol Losartan Potassium 25 mg 06/18/25 09:00 06/19/25 08:25 Losartan Potassium 25 Mg Tablet PO 25 mg DAILY MARIAELENA Administration Magnesium Oxide 800 mg 06/20/25 09:00 Magnesium Oxide 400 Mg Tablet PO MoWeFr@0900 MARIAELENA Magnesium Oxide 400 mg 06/19/25 09:00 06/19/25 08:15 Magnesium Oxide 400 Mg Tablet PO 400 mg SuTuThSa@0900 MARIAELENA Administration Memantine 5 mg 06/18/25 09:00 06/19/25 08:11 Memantine Hcl 10 Mg Tablet PO 5 mg BID MARIAELENA Administration Methimazole 2.5 mg 06/18/25 10:30 06/19/25 08:12 Methimazole 10 Mg Tablet PO 2.5 mg SuTuThSa@0900 MARIAELENA Administration Methimazole 5 mg 06/20/25 09:00 Methimazole 10 Mg Tablet PO MoWeFr@0900 [facility] Methylprednisolone Sodium Succinate 40 mg 06/19/25 11:20 06/19/25 12:45 Methylprednisolone Sod Succ/Pf 40 Mg/Ml Vial IVP Not Given Q8HR [facility] Nicotine 1 patch 06/19/25 11:20 06/19/25 11:29 Nicotine 21 Mg Patch.Td24 TD 1 patch DAILY MARIAELENA Administration Non-Formulary Medication 1.25 mg 06/18/25 09:00 06/19/25 08:21 Conjugated Estrogens [Premarin] PO Not Given DAILY [facility] Oxycodone/Acetaminophen 1 tab 06/18/25 10:18 06/19/25 03:51 Oxycodone/Acetaminophen 10/325 Mg Tablet PO 1 tab Q4H PRN Administration MODERATE PAIN Pantoprazole Sodium 40 mg 06/18/25 09:00 06/19/25 06:20 Pantoprazole Sodium 40 Mg Tablet.Dr PO 40 mg QDAC2 MARIAELENA Administration Potassium Chloride 20 meq 06/18/25 07:30 06/19/25 08:17 Potassium Chloride 20 Meq Tab PO 20 meq DAILYWM2 MARIAELENA Administration Pregabalin 200 mg 06/18/25 09:00 06/19/25 08:18 Pregabalin 50 Mg Capsule PO 200 mg 2XD MARIAELENA Administration Ranolazine 1,000 mg 06/18/25 09:00 06/19/25 08:18 Ranolazine 500 Mg Tab.Er.12h PO 1,000 mg BID MARIAELENA Administration Rosuvastatin Calcium 10 mg 06/18/25 09:00 06/19/25 08:18 Rosuvastatin Calcium 10 Mg Tablet PO 10 mg DAILY MARIAELENA Administration Sodium Chloride 1 syr 06/17/25 14:32 0.9% Sodium Chloride 10 Ml Disp.Syrin IVF PRN PRN To flush IV Solifenacin 10 mg 06/18/25 09:00 06/19/25 08:16 Solifenacin Succinate 5 Mg Tablet PO 10 mg DAILY MARIAELENA Administration Tiotropium [place] 1 cap 06/18/25 09:00 06/19/25 08:16 Tiotropium Mcdaniels 18 Mcg Cap.W.Dev IH 1 cap DAILY MARIAELENA Administration Tizanidine HCl 4 mg 06/18/25 09:00 06/19/25 08:28 Tizanidine Hcl 4 Mg Tablet PO 4 mg BID MARIAELENA Administration Trazodone HCl 300 mg 06/18/25 21:00 06/18/25 20:11 Trazodone Hcl 50 Mg Tablet PO 300 mg BEDTIME MARIAELENA Administration Plan Plan: 1. Acute metabolic encephalopathy in setting of UTI and hypercapnia - Worsened today, abg ordered showing pCO2 has increased from 40s to 70s. PH normal but patient heading towards a respiratory acidosis, with her being symptomatic with lethargy and confusion, will trial bipap to see if improvement of her pCo2 improves her mentation. 2. UTI due to e coli - Cont rocephin 3. Hypomagnesemia - Improved, will order another 2 gm rider. 4. Right lung cancer - sees Dr. Silverman, outpt PET scan scheduled for later this month, plan to discuss options following that 5. Acute COPD exacerbation with hypercapnia - Cont home meds, duonebs, add solumedrol q8hrs, currently on bipap, will repeat abg in next 1-2 hours 6. DMT2 - A1c very controlled, will do lantus 30 mg bid instead of 50 bid to avoid lows. Humalog sliding scale, accuchecks achs 7. Near syncope - ct head negative. Orthostats negative. Tele. 8. Hyperlipidemia - Cont home meds 9. GERD - Cont home meds 10. Hypertension - Cont home meds DVT Prophylaxis: Lovenox Made inpatient today. Review Statement Review Statement: I have personally discussed and reviewed the patient's visit/currently labs/imaging/decision making with Dr. Nguyen, my supervising attending. Greater that 50 minutes spent with patient, 50% of the time spent with this patient was devoted to counseling and coordination of care.
[2025-06-19] MEDS: MAGNESIUM SULF 2 G/50 ML BAG 2 GM/50 ML PIGGYBACK IV ONE (14:00)
[2025-06-19 15:16] LABS: ABG O2 HGB 94.3 % (95-100); ABG PH 7.40 (7.35-7.45); ABG PO2 73.0 mmHg (85-100); BEecf 14.2 (-2.0-3.0); FI02 32.0 %; HCO3 39.0 (21-28); TCO2 40.9 (19-24)
[2025-06-19 15:38] LABS: ABG PCO2 63.0 mmHg (35-45)
[2025-06-19 17:00] LABS: ABG O2 HGB 93.8 % (95-100); ABG PH 7.38 (7.35-7.45); ABG PO2 76.0 mmHg (85-100); BEecf 13.9 (-2.0-3.0); FI02 32.0 %; HCO3 39.0 (21-28); TCO2 41.0 (19-24)
[2025-06-19 17:14] LABS: ABG PCO2 66.0 mmHg (35-45)
[2025-06-19] MEDS: VALIUM PO PRN (21:02)
[2025-06-20 04:40] LABS: ABG O2 HGB 93.6 % (95-100); ABG PH 7.34 (7.35-7.45); ABG PO2 78.0 mmHg (85-100); BEecf 9.3 (-2.0-3.0); HCO3 35.1 (21-28); TCO2 37.1 (19-24)
[2025-06-20 04:43] LABS: ABG PCO2 65.0 mmHg (35-45)
[2025-06-20] MEDS: TAPAZOLE PO SCH (08:07)
[2025-06-20] MEDS: MAG-OX PO SCH (08:10)
--- NOTE | 2025-06-20 09:41 | PCM.PROG ---
Date/Time Seen Date Seen by Provider: 06/20/25 Time Seen by Provider: 08:40 Provider [facility] Chief Complaint Chief Complaint: AMS Subjective Subjective: Feeling much better today. Mentally feels more clear. Family at bedside states patient is back to her baseline mental status. Objective Appearance: Positive No Apparent Distress, Alert and Oriented x3 and Obese Chest/Lungs: Positive Symmetrical With Equal Breath Sounds, Clear to Auscultation Bilaterally and Good Air Movement all 4 Lung Ramírez; Negative Rales, Rhonci or Wheezes Heart: Positive RRR and Pulses Normal GI/: Positive Soft, Nontender, Bowel Sounds Normal and No Distention Musculoskeletal: Positive Not Examined Neurological: Positive Sensation Intact, Motor intact, Reflexes Intact, Alert, Oriented and Other (generalized weakness) Vital Signs Vital Signs: Vital Signs: Last 24 Hours 06/19/25 09:52 06/19/25 09:52 06/19/25 10:00 Temperature 97 F L Temperature Source Temporal Artery Scan Pulse Rate 73 Respiratory Rate 18 Blood Pressure 136/78 Blood Pressure Mean 97 Blood Pressure Location Left Arm Blood Pressure Position Supine O2 Sat by Pulse Oximetry 97 95 Oxygen Delivery Method Nasal Cannula Nasal Cannula Nasal Cannula Oxygen Flow Rate 3.5 3 Fraction of Inspired Oxygen (FIO2) Telemetry Type Telemetry Monitoring Telemetry Heart Rate Telemetry SPO2 EKG VA Interval EKG QRS Interval Telemetry Strip Reading 06/19/25 11:00 06/19/25 11:39 06/19/25 12:00 Temperature Temperature Source Pulse Rate Respiratory Rate Blood Pressure Blood Pressure Mean Blood Pressure Location Blood Pressure Position O2 Sat by Pulse Oximetry 99 Oxygen Delivery Method Nasal Cannula Nasal Cannula Oxygen Flow Rate Fraction of Inspired Oxygen (FIO2) 32 Telemetry Type Telemetry Monitoring Telemetry Heart Rate Telemetry SPO2 EKG VA Interval EKG QRS Interval Telemetry Strip Reading 06/19/25 13:00 06/19/25 13:00 06/19/25 13:04 Temperature Temperature Source Pulse Rate Respiratory Rate Blood Pressure Blood Pressure Mean Blood Pressure Location Blood Pressure Position O2 Sat by Pulse Oximetry 98 Oxygen Delivery Method Nasal Cannula Oxygen Flow Rate Fraction of Inspired Oxygen (FIO2) 32 Telemetry Type Remote Telemetry Telemetry Monitoring Continues Telemetry Heart Rate 73 Telemetry SPO2 EKG VA Interval 0.19 EKG QRS Interval 0.08 Telemetry Strip Reading SR 06/19/25 14:00 06/19/25 14:00 06/19/25 14:00 Temperature Temperature Source Pulse Rate Respiratory Rate Blood Pressure Blood Pressure Mean Blood Pressure Location Blood Pressure Position O2 Sat by Pulse Oximetry 98 98 Oxygen Delivery Method Bi-pap Bi-pap Oxygen Flow Rate Fraction of Inspired Oxygen (FIO2) 32 32 Telemetry Type Telemetry Monitoring Telemetry Heart Rate Telemetry SPO2 EKG VA Interval EKG QRS Interval Telemetry Strip Reading 06/19/25 14:00 06/19/25 15:00 06/19/25 16:00 Temperature 97.1 F L Temperature Source Temporal Artery Scan Pulse Rate 77 Respiratory Rate 20 Blood Pressure 113/59 L Blood Pressure Mean 77 Blood Pressure Location Left Arm Blood Pressure Position Supine O2 Sat by Pulse Oximetry Oxygen Delivery Method Bi-pap Bi-pap Bi-pap Oxygen Flow Rate Fraction of Inspired Oxygen (FIO2) Telemetry Type Telemetry Monitoring Telemetry Heart Rate Telemetry SPO2 EKG VA Interval EKG QRS Interval Telemetry Strip Reading 06/19/25 17:00 06/19/25 17:30 06/19/25 18:00 Temperature 97.9 F Temperature Source Temporal Artery Scan Pulse Rate 73 Respiratory Rate 18 Blood Pressure 144/68 H Blood Pressure Mean 93 Blood Pressure Location Right Arm Blood Pressure Position Sitting O2 Sat by Pulse Oximetry 98 100 Oxygen Delivery Method Bi-pap Nebulizer Treatment Oxygen Flow Rate 15 Fraction of Inspired Oxygen (FIO2) 32 Telemetry Type Telemetry Monitoring Telemetry Heart Rate Telemetry SPO2 EKG VA Interval EKG QRS Interval Telemetry Strip Reading 06/19/25 18:00 06/19/25 19:00 06/19/25 19:00 Temperature Temperature Source Pulse Rate Respiratory Rate Blood Pressure Blood Pressure Mean Blood Pressure Location Blood Pressure Position O2 Sat by Pulse Oximetry Oxygen Delivery Method Nebulizer Treatment Nasal Cannula Oxygen Flow Rate Fraction of Inspired Oxygen (FIO2) Telemetry Type Remote Telemetry Telemetry Monitoring Continues Telemetry Heart Rate 84 Telemetry SPO2 EKG VA Interval 0.18 EKG QRS Interval 0.09 Telemetry Strip Reading SR 06/19/25 19:41 06/19/25 20:00 06/19/25 20:00 Temperature Temperature Source Pulse Rate Respiratory Rate Blood Pressure Blood Pressure Mean Blood Pressure Location Blood Pressure Position O2 Sat by Pulse Oximetry Oxygen Delivery Method Nasal Cannula Nasal Cannula Nasal Cannula Oxygen Flow Rate 3 3.5 Fraction of Inspired Oxygen (FIO2) Telemetry Type Telemetry Monitoring Telemetry Heart Rate Telemetry SPO2 EKG VA Interval EKG QRS Interval Telemetry Strip Reading 06/19/25 21:00 06/19/25 21:35 06/19/25 22:00 Temperature 98.6 F Temperature Source Temporal Artery Scan Pulse Rate 78 Respiratory Rate 18 Blood Pressure 146/76 H Blood Pressure Mean 99 Blood Pressure Location Left Arm Blood Pressure Position Supine O2 Sat by Pulse Oximetry 96 Oxygen Delivery Method Nasal Cannula Nasal Cannula Nasal Cannula Oxygen Flow Rate 4 Fraction of Inspired Oxygen (FIO2) Telemetry Type Telemetry Monitoring Telemetry Heart Rate Telemetry SPO2 EKG VA Interval EKG QRS Interval Telemetry Strip Reading 06/19/25 23:00 06/19/25 23:10 06/20/25 00:00 Temperature Temperature Source Pulse Rate Respiratory Rate Blood Pressure Blood Pressure Mean Blood Pressure Location Blood Pressure Position O2 Sat by Pulse Oximetry 98 Oxygen Delivery Method Nasal Cannula Nasal Cannula Oxygen Flow Rate 3 Fraction of Inspired Oxygen (FIO2) 32 Telemetry Type Telemetry Monitoring Telemetry Heart Rate Telemetry SPO2 EKG VA Interval EKG QRS Interval Telemetry Strip Reading 06/20/25 01:00 06/20/25 01:00 06/20/25 01:23 Temperature Temperature Source Pulse Rate Respiratory Rate Blood Pressure Blood Pressure Mean Blood Pressure Location Blood Pressure Position O2 Sat by Pulse Oximetry 96 Oxygen Delivery Method Nasal Cannula Oxygen Flow Rate Fraction of Inspired Oxygen (FIO2) 32 Telemetry Type Remote Telemetry Telemetry Monitoring Continues Telemetry Heart Rate 72 Telemetry SPO2 97 EKG VA Interval 0.15 EKG QRS Interval 0.09 Telemetry Strip Reading SR 06/20/25 02:00 06/20/25 02:00 06/20/25 03:00 Temperature Temperature Source Pulse Rate 71 Respiratory Rate 16 Blood Pressure Blood Pressure Mean Blood Pressure Location Blood Pressure Position O2 Sat by Pulse Oximetry 98 Oxygen Delivery Method Nasal Cannula Bi-pap Nasal Cannula Oxygen Flow Rate Fraction of Inspired Oxygen (FIO2) Telemetry Type Telemetry Monitoring Telemetry Heart Rate Telemetry SPO2 EKG VA Interval EKG QRS Interval Telemetry Strip Reading 06/20/25 04:00 06/20/25 05:00 06/20/25 05:10 Temperature Temperature Source Pulse Rate Respiratory Rate Blood Pressure Blood Pressure Mean Blood Pressure Location Blood Pressure Position O2 Sat by Pulse Oximetry 96 Oxygen Delivery Method Nasal Cannula Nasal Cannula Oxygen Flow Rate Fraction of Inspired Oxygen (FIO2) 32 Telemetry Type Telemetry Monitoring Telemetry Heart Rate Telemetry SPO2 EKG VA Interval EKG QRS Interval Telemetry Strip Reading 06/20/25 05:10 06/20/25 05:11 06/20/25 05:52 Temperature 97.1 F L Temperature Source Temporal Artery Scan Pulse Rate 69 Respiratory Rate 16 Blood Pressure 142/78 H Blood Pressure Mean 99 Blood Pressure Location Left Arm Blood Pressure Position Supine O2 Sat by Pulse Oximetry 96 96 Oxygen Delivery Method Bi-pap Room Air Room Air Oxygen Flow Rate Fraction of Inspired Oxygen (FIO2) Telemetry Type Telemetry Monitoring Telemetry Heart Rate Telemetry SPO2 EKG VA Interval EKG QRS Interval Telemetry Strip Reading 06/20/25 06:56 06/20/25 07:00 06/20/25 08:00 Temperature Temperature Source Pulse Rate Respiratory Rate Blood Pressure Blood Pressure Mean Blood Pressure Location Blood Pressure Position O2 Sat by Pulse Oximetry Oxygen Delivery Method Room Air Nasal Cannula Oxygen Flow Rate 3.5 Fraction of Inspired Oxygen (FIO2) Telemetry Type Remote Telemetry Telemetry Monitoring Continues Telemetry Heart Rate 72 Telemetry SPO2 92 L EKG VA Interval 0.16 EKG QRS Interval 0.08 Telemetry Strip Reading SR Lab Results Lab Results: Lab Results: Last 24 Hours 06/20/25 06/19/25 06/19/25 04:15 16:50 15:00 Puncture Site Lr Rbrach Rbrach Base Excess 9.3 H 13.9 H 14.2 H O2 Saturation 94.6 94.8 94.5 ABG pH 7.34 L 7.38 7.40 ABG pCO2 65.0 H 66.0 H 63.0 H ABG pO2 78.0 L 76.0 L 73.0 L ABG HCO3 35.1 H 39.0 H 39.0 H ABG Total CO2 37.1 H 41.0 H 40.9 H Grzegorz Test Pos Hemoglobin 1.0 1.3 0.9 Oxyhemoglobin 93.6 L 93.8 L 94.3 L Carboxyhemoglobin 2.0 H 1.9 H 2.0 H Total Hemoglobin 14.6 12.6 12.5 O2 Delivery Device Cannula Bipap Bipap Oxygen Liter Flow 3.00 FiO2 % 32.0 32.0 Magnesium 06/19/25 06/19/25 06/19/25 12:48 10:46 04:50 Puncture Site Rbrach Rbrach Base Excess 15.7 H 18.0 H O2 Saturation 95.2 95.8 ABG pH 7.38 7.39 ABG pCO2 69.0 H 71.0 H ABG pO2 78.0 L 81.0 L ABG HCO3 40.8 H 43.0 H ABG Total CO2 42.9 H 45.2 H Grzegorz Test Hemoglobin 1.2 0.9 Oxyhemoglobin 94.2 L 95.2 Carboxyhemoglobin 1.9 H 2.0 H Total Hemoglobin 12.1 11.8 O2 Delivery Device Bipap Cannula Oxygen Liter Flow 3.00 FiO2 % 32.0 Magnesium 1.67 Additional Comments Additional Comments: I have independently reviewed and interpreted the labs/EKGs/imaging ordered during this hospital stay. I have reviewed outside records that are available in our EMR that pertain to medical stay including imaging/notes/labs from previous visits. Active Medications Active Medications: Medications Generic Name Dose Route Start Last Admin Trade Name Freq PRN Reason Stop Dose Admin Acetaminophen 650 mg 06/17/25 21:15 06/18/25 20:11 Acetaminophen 325 Mg Tablet PO 650 mg Q4H PRN Administration Mild Pain Albuterol Sulfate 2.5 mg 06/18/25 00:10 06/19/25 11:35 Albuterol Sulfate 0.083% Vial.Neb NEB 2.5 mg Q4-6H PRN Administration SOA Albuterol Sulfate 2 puff 06/18/25 00:10 Albuterol Sulfate 8 Gm Inhaler IH QID PRN SOA Albuterol/Ipratropium 3 ml 06/19/25 11:20 06/20/25 05:04 Ipratropium/Albuterol Vial.Neb NEB 3 ml RTQ6H MARIAELENA Administration Aripiprazole 10 mg 06/18/25 09:00 06/20/25 08:04 Aripiprazole 5 Mg Tablet PO 10 mg DAILY MARIAELENA Administration Aspirin 81 mg 06/18/25 07:30 06/20/25 07:53 Aspirin 81 Mg Tablet. PO 81 mg DAILYWM2 MARIAELENA Administration Budesonide/Formoterol Fumarate 2 puff 06/18/25 09:00 06/20/25 08:15 Budesonide/Formoterol Fumarate 160/4.5 Mcg Inhaler IH 2 puff BID MARIAELENA Administration Cetirizine HCl 10 mg 06/18/25 09:00 06/20/25 08:11 Cetirizine Hcl 10 Mg Tablet PO 10 mg DAILY MARIAELENA Administration Clopidogrel Bisulfate 75 mg 06/18/25 09:00 06/20/25 08:06 Clopidogrel Bisulfate 75 Mg Tablet PO 75 mg DAILY MARIAELENA Administration Diazepam 10 mg 06/18/25 00:10 06/19/25 21:02 Diazepam 5 Mg Tablet PO 10 mg DAILY PRN Administration ANXIETY Donepezil HCl 10 mg 06/18/25 21:00 06/19/25 20:10 Donepezil Hcl 10 Mg Tablet PO 10 mg BEDTIME MARIAELENA Administration Enoxaparin Sodium 40 mg 06/19/25 09:00 06/20/25 08:02 Enoxaparin Sodium 40 Mg/0.4 Ml Syr SUBCUT 40 mg DAILY MARIAELENA Administration Famotidine 20 mg 06/18/25 09:00 06/20/25 05:27 Famotidine 20 Mg Tablet PO 20 mg QDAC2 MARIAELENA Administration Fluoxetine HCl 80 mg 06/18/25 09:00 06/20/25 08:03 Fluoxetine Hcl 20 Mg Capsule PO 80 mg DAILY MARIAELENA Administration Furosemide 40 mg 06/18/25 09:00 06/20/25 05:27 Furosemide 40 Mg Tablet PO 40 mg QDAC2 MARIAELENA Administration CEFTRIAXONE/D5W 1 GM PREMIX 1 gm in 50 mls @ 100 mls/hr 06/17/25 22:00 06/19/25 20:12 Rocephin 1 Gm/50 Ml D5w IV 06/20/25 21:59 100 mls/hr BEDTIME MARIAELENA Administration Ibuprofen 600 mg 06/18/25 09:04 Ibuprofen 600 Mg Tablet PO Q6H PRN Mild Pain Insulin Glargine 30 unit 06/18/25 10:20 06/20/25 08:13 Insulin Glargine,Hum.Rec.Anlog 100 Units/Ml SUBCUT 30 unit BID MARIAELENA Administration Insulin Human Lispro 0 unit 06/18/25 11:16 06/20/25 06:05 Insulin Lispro 100 Unit/Ml (10 Ml Vial) SUBCUT 4 unit PRN PRN Administration Hyperglycemia Protocol Losartan Potassium 25 mg 06/18/25 09:00 06/20/25 08:05 Losartan Potassium 25 Mg Tablet PO 25 mg DAILY MARIAELENA Administration Magnesium Oxide 800 mg 06/20/25 09:00 06/20/25 08:10 Magnesium Oxide 400 Mg Tablet PO 800 mg [email or web address] MARIAELENA Administration Magnesium Oxide 400 mg 06/19/25 09:00 06/19/25 08:15 Magnesium Oxide 400 Mg Tablet PO 400 mg [email or web address] MARIAELENA Administration Memantine 5 mg 06/18/25 09:00 06/20/25 08:06 Memantine Hcl 10 Mg Tablet PO 5 mg BID MARIAELENA Administration Methimazole 2.5 mg 06/18/25 10:30 06/19/25 08:12 Methimazole 10 Mg Tablet PO 2.5 mg [id number] MARIAELENA Administration Methimazole 5 mg 06/20/25 09:00 06/20/25 08:07 Methimazole 10 Mg Tablet PO 5 mg [email or web address] MARIAELENA Administration Methylprednisolone Sodium Succinate 40 mg 06/19/25 11:20 06/20/25 04:56 Methylprednisolone Sod Succ/Pf 40 Mg/Ml Vial IVP 40 mg Q8HR MARIAELENA Administration Nicotine 1 patch 06/19/25 11:20 06/20/25 08:11 Nicotine 21 Mg Patch.Td24 TD 1 patch DAILY MARIAELENA Administration Non-Formulary Medication 1.25 mg 06/18/25 09:00 06/20/25 08:16 Conjugated Estrogens [Premarin] PO Not Given DAILY MARIAELENA Oxycodone/Acetaminophen 1 tab 06/18/25 10:18 06/20/25 09:39 Oxycodone/Acetaminophen 10/325 Mg Tablet PO 1 tab Q4H PRN Administration MODERATE PAIN Pantoprazole Sodium 40 mg 06/18/25 09:00 06/20/25 05:26 Pantoprazole Sodium 40 Mg Tablet.Dr PO 40 mg QDAC2 MARIAELENA Administration Potassium Chloride 20 meq 06/18/25 07:30 06/20/25 07:53 Potassium Chloride 20 Meq Tab PO 20 meq DAILYWM2 MARIAELENA Administration Pregabalin 200 mg 06/18/25 09:00 06/20/25 08:05 Pregabalin 50 Mg Capsule PO 200 mg 2XD MARIAELENA Administration Ranolazine 1,000 mg 06/18/25 09:00 06/20/25 08:04 Ranolazine 500 Mg Tab.Er.12h PO 1,000 mg BID MARIAELENA Administration Rosuvastatin Calcium 10 mg 06/18/25 09:00 06/20/25 08:11 Rosuvastatin Calcium 10 Mg Tablet PO 10 mg DAILY MARIAELENA Administration Sodium Chloride 1 syr 06/17/25 14:32 06/20/25 04:56 0.9% Sodium Chloride 10 Ml Disp.Syrin IVF 1 syr PRN PRN Administration To flush IV Solifenacin 10 mg 06/18/25 09:00 06/20/25 08:03 Solifenacin Succinate 5 Mg Tablet PO 10 mg DAILY MARIAELENA Administration Tiotropium Alderson 1 cap 06/18/25 09:00 06/20/25 08:15 Tiotropium Alderson 18 Mcg Cap.W.Dev IH 1 cap DAILY MARIAELENA Administration Tizanidine HCl 4 mg 06/18/25 09:00 06/20/25 08:11 Tizanidine Hcl 4 Mg Tablet PO 4 mg BID MARIAELENA Administration Trazodone HCl 300 mg 06/18/25 21:00 06/19/25 20:10 Trazodone Hcl 50 Mg Tablet PO 300 mg BEDTIME MARIAELENA Administration Plan Plan: 1. Acute metabolic encephalopathy in setting of UTI and hypercapnia - Improved, patient at baseline per family, supposed to be on BIPAP/Noninvasive vent but did not tolerate previous device, PCO2 stable in 60s, rest of abg improved, will need bipap upon discharge with last settings per RT 2. UTI due to e coli - Cont rocephin 3. Hypomagnesemia - Resolved 4. Right lung cancer - sees Dr. Silverman, outpt PET scan scheduled for later this month, plan to discuss options following that 5. Acute COPD exacerbation with hypercapnia - Cont home meds, duonebs, add solumedrol q8hrs, on baseline oxygen, bipap for sleep/naps 6. DMT2 - A1c very controlled, will do lantus 30 mg bid instead of 50 bid to avoid lows. Humalog sliding scale, accuchecks achs 7. Near syncope - ct head negative. Orthostats negative. Tele. 8. Hyperlipidemia - Cont home meds 9. GERD - Cont home meds 10. Hypertension - Cont home meds DVT Prophylaxis: Lovenox Dispo: anticipate d/c tomorrow after arrangement of BIPAP Review Statement Review Statement: I have personally discussed and reviewed the patient's visit/currently labs/imaging/decision making with Dr. Nguyen, my supervising attending. Greater that 50 minutes spent with patient, 50% of the time spent with this patient was devoted to counseling and coordination of care.
[2025-06-21 05:26] LABS: IMMATURE GRANULOCYTE # (AUTO) 0.0 (0.0-1.0); IMMATURE GRANULOCYTE % (AUTO) 0.4 % (0.0-5.0); RDW COEFFICIENT OF VARIATION 13.9 % (11.6-14.8)
[2025-06-21 05:41] LABS: CREATININE 0.49 mg/dL (0.60-1.30)
--- NOTE | 2025-06-21 09:36 | DCSUM ---
Admission Date Admission Date: 06/17/25 Discharge Date Discharge Date: 06/21/25 Admission Diagnosis Admission Diagnosis: 1. Acute metabolic encephalopathy in setting of UTI 2. UTI 3. Hypomagnesemia 4. Right lung cancer 5. COPD 6. DMT2 7. Near syncope 8. Hyperlipidemia 9. GERD 10. Hypertension Discharge Diagnosis Discharge Diagnosis: 1. Acute metabolic encephalopathy in setting of UTI and hypercapnia - Resolved, patient at baseline per family, supposed to be on BIPAP/Noninvasive vent but did not tolerate previous device, PCO2 stable in 60s, rest of abg improved, bipap order sent 2. UTI due to e coli - Improved, rx sent for augmentin 3. Hypomagnesemia - Resolved 4. Right lung cancer - sees Dr. Silverman, outpt PET scan scheduled for later this month, plan to discuss options following that 5. Acute COPD exacerbation with hypercapnia - Resolved 6. DMT2 - chronic, stable 7. Near syncope - ct head negative. Orthostats negative. 8. Hyperlipidemia - chronic, stable 9. GERD - Chronic, stable 10. Hypertension - Chronic, stable Hospital Provider Hospital Provider[facility] Primary Care Physician: DAJA AGUERO Summary of History and Physical Summary of History and Physical: Patient is a 64 year old female with pmhx of non small cell lung cancer that is still active who presents to ER with weakness, falls, and uti. She had felt dizzy through the day. Went to get an outpatient x ray done and fell in the parking lot. No head injury. Was started recently on doxy for upper respiratory symptoms. Daughter states she also had an episode of weakness where she fell and possibly passed out for a few seconds. She has been really shaky as well. Patient has a right sided lung cancer, has received treatment in the past. Due to an outpatient PET scan soon to discuss plan/options. Patient states she's been experiencing dysuria and suprapubic tenderness with urination for a few days. In ER was found to have a UTI. Glucose normal. Mag 1.25. Given levaquin. CT head, CT a/p negative. CT chest showing no acute abnormalities but does note the known right lung mass. Admitted to [facility]. Today she states she is feeling better, does complain of a headache. Hospital Course Subjective: During stay, patient was treated for UTI with rocephin. Urine culture showed growth of E.Coli. Patient was still confused and not herself per family. Family then stated that she was supposed to be on BIPAP but had not tolerated her previous device. ABG obtained and CO2 elevated. Wore BIPAP approx 24 hours and CO2 improved. Mental status returned to baseline and patient was feeling much better yesterday. [employer] reported patient had a noninvasive vent but did not tolerate use of it. Discussed with patient and family importance of compliance with BIPAP due to risk for respiratory decline leading to intubation and cause of mental confusion due to elevated CO2. Order sent to oxygen company that is requiring pre-cert with insurance. Could take up to 14 days to receive. Patient has CPAP at home and has been instructed to use in the meantime as well as continuous home oxygen. Remained on home oxygen requirements. VSS. Labs within normal limits today. D/c home with family. Appearance: Pleasant, No Apparent Distress and Alert HEENT: MMM, Supple and No JVD CVS: No Murmur Abdomen: Soft, Non-Tender and No Distention Respiratory: No Dyspnea Extremities: No Edema Vital Signs: Most Recent Vital Signs Temperature 97.9 F 06/21/25 05:02 Temperature Source Temporal Artery Scan 06/21/25 05:02 Temperature Source Temporal Artery Scan 06/17/25 14:06 Pulse Rate 80 06/21/25 07:23 Respiratory Rate 16 06/21/25 07:23 Blood Pressure 141/85 H 06/21/25 05:02 Blood Pressure Mean 103 06/21/25 05:02 Blood Pressure Left Arm 118/69 06/17/25 23:03 Blood Pressure Location Right Arm 06/21/25 05:02 Blood Pressure Position Supine 06/21/25 05:02 O2 Sat by Pulse Oximetry 94 L 06/21/25 05:02 Oxygen Delivery Method Nasal Cannula 06/21/25 07:23 Oxygen Flow Rate 3 06/21/25 07:23 Fraction of Inspired Oxygen (FIO2) 32 06/21/25 02:00 Height 5 ft 6 in 06/20/25 12:09 Weight 99.9 kg 06/20/25 12:09 Telemetry Type Remote Telemetry 06/20/25 13:00 Telemetry Monitoring Continues 06/20/25 13:00 Telemetry Heart Rate 70 06/20/25 13:00 Telemetry SPO2 96 06/20/25 13:00 EKG ND Interval 0.16 06/20/25 13:00 EKG QRS Interval 0.10 06/20/25 13:00 Telemetry Strip Reading SR 06/20/25 13:00 Imaging: EXAMINATION: HEAD CT WITHOUT CONTRAST HISTORY: Altered mental status. TECHNIQUE: Noncontrast CT of the brain was performed with images acquired from skull base to vertex. 2-D coronal and sagittal reformatted images were obtained from the axial source images. Contrast Dose: None. CT Dose Reduction Techniques Performed: Yes. COMPARISON: 02/03/2024. FINDINGS: Topogram demonstrates no significant abnormality. Intraparenchymal hemorrhage: None. Parenchyma: Normal burgess-white differentiation. No mass effect or midline shift. Extra-axial spaces and basal cisterns: Normal. Ventricles: Normal size and morphology for age. Paranasal sinuses and mastoid air cells: Visualized portions of paranasal sinuses are clear. Mastoid air cells are clear. Orbits: Normal visualized portions. Sella/Skull Base: Normal. Other: Scalp and visualized soft tissues are normal. Calvarium is normal. IMPRESSION: 1. No intracranial hemorrhage. 2. Unremarkable noncontrast CT scan of the brain. EXAM: CHEST RADIOGRAPH TECHNIQUE: Two views. Frontal and lateral. HISTORY: Cough. COMPARISON: 04/25/2025. FINDINGS: The lungs show no consolidation, pleural effusion or pneumothorax. Underlying chronic interstitial change. Mild scarring in both lower lobes. Cardiomediastinal silhouette and pulmonary vessels are within normal limits. Upper abdomen is unremarkable. No acute bony abnormality. Small calcific density superior to the right humeral head maybe a soft tissue calcification or rotator cuff calcification. IMPRESSION: 1. No acute cardiopulmonary disease. EXAM: CHEST CT WITHOUT CONTRAST 06/17/2025 HISTORY: Bilateral coarse breath sounds TECHNIQUE: Axial CT images were obtained through the chest without the administration of intravenous contrast. Coronal and sagittal reformatted images were also submitted for interpretation. COMPARISON: CT chest 04/12/2025. FINDINGS: The lower neck is within normal limits. Major airways are patent. No pneumothorax or pleural fluid. Enlarging mass in the posterior right upper lobe measuring 5.3 x 4.9 cm (series 3, image 26), previously 3.9 x 4.2 cm. Calcified granuloma. Mild emphysematous changes. Mild bibasilar atelectasis and/or pneumonitis. Mild cardiomegaly. The unenhanced thoracic aorta is normal in size. Athe rosclerosis in the aorta. Coronary calcifications. Enlarged pulmonary trunk measuring 3.10 cm suggestive of pulmonary arterial hypertension. No lymphadenopathy allowing for limitation by lack of IV contrast. Soft tissue structures are unremarkable. Cholecystectomy clips. Small hiatal hernia. Possible hepatic steatosis. Correlation with LFTs recommended. The bones are intact. IMPRESSION: - Enlarging mass in the posterior right upper lobe measuring 5.3 x 4.9 cm, previously 3.9 x 4.2 cm. Neoplasm is possibility. Tissue sampling and/or further evaluation with PET scan advised. - Enlarged pulmonary trunk measuring 3.10 cm suggestive of pulmonary arterial hypertension. - Atherosclerosis in the aorta. Coronary calcifications. Mild cardiomegaly. - Cholecystectomy clips. Small hiatal hernia. Possible hepatic steatosis. Correlation with LFTs recommended. EXAM: CT OF THE ABDOMEN AND PELVIS WITHOUT CONTRAST. TECHNIQUE: CT of the abdomen and pelvis was performed without the use of contrast. Multiplanar reformats were performed. HISTORY: Suprapubic pain. COMPARISON: None. FINDINGS:Evaluation of solid organs and blood vessels is suboptimal without the benefit of contrast. Imaged lower thorax: No significant findings. There appears to be a duodenal diverticulum near the pancreatic uncinate process. Liver: The hepatomegaly. Gallbladder/Bile Ducts: No biliary dilation. The gallbladder is absent.. Spleen: Unremarkable. Pancreas: Normal. Adrenals: No discrete lesions. Kidneys/Ureters: No acute findings. Bowel/mesentery/peritoneum: No bowel obstruction. Normal appendix. No free fluid or free air.No inflammatory bowel changes are evident.. Abominal Wall: No defects. Retroperitoneum/vessels: No aortic aneurysm. No adenopathy. Pelvis: The bladder wall contour is normal.. Bones: No aggressive lesion identified.Lumbar disc disease and L5-S1. Symmetric degenerative change of the hips. IMPRESSION: 1. Duodenal diverticulum. 2. Post cholecystectomy 3. Hepatomegaly. 4. Degenerative change of the spine hips and pelvis. Lab Results Last 24 Hours: 06/21/25 05:10 WBC 6.78 RBC 4.13 L Hgb 12.1 Hct 38.4 MCV 93.0 MCH 29.3 MCHC 31.5 L RDW Coeff of Wilson 13.9 Plt Count 208 Immature Gran % (Auto) 0.4 Neut % (Auto) 75.6 H Lymph % (Auto) 16.2 [place] % (Auto) 7.7 Eos % (Auto) 0.1 Baso % (Auto) 0.0 Neut # (Auto) 5.1 Lymph # (Auto) 1.1 [place] # (Auto) 0.5 Eos # (Auto) 0.0 Baso # (Auto) 0.0 Immature Gran # (Auto) 0.0 Sodium 135.6 Potassium 4.34 Chloride 96.7 L Carbon Dioxide 31.8 H Anion Gap 11.44 BUN 15.5 Creatinine 0.49 L Estimated GFR (MDRD) 127.00 BUN/Creatinine Ratio 31.63 Glucose 264.8 H Calcium 9.18 Total Bilirubin 0.33 AST 24.6 ALT 18.7 Alkaline Phosphatase 122.8 Total Protein 6.44 Albumin 3.41 L Globulin 3.03 Albumin/Globulin Ratio 1.12 Discharge Instructions Discharge Planning: Discharge Planning > 40 minutes If patient is discharged with left ventricular systolic dysfunction: na Discharged with a beta edis? [] If no, why not? [] Discharged with an josesito/arb? [] If no, why not? [] Discharge Medications: Medications at Discharge (Home Meds & RX) conjugated estrogens 1.25 mg tablet (Premarin) 1.25 mg PO DAILY 04/07/15 losartan 25 mg tablet 25 mg PO QDAY 01/08/21 pantoprazole 40 mg tablet,delayed release 40 mg PO QDAY 01/08/21 magnesium oxide 400 mg (241.3 mg magnesium) tablet 800 mg PO MOWEFR 01/29/22 insulin glargine 100 unit/mL (3 mL) subcutaneous pen (Lantus Solostar U-100 Insulin) 50 unit subcut BID 06/26/22 methimazole 5 mg tablet 5 mg PO .COMPLEX 06/26/22 furosemide 40 mg tablet 40 mg PO DAILY 11/13/22 insulin lispro 100 unit/mL subcutaneous pen (Admelog SoloStar U-100 Insulin lispro) 20 - 30 unit subcut ACHS 11/13/22 potassium chloride 20 mEq tablet,extended release(part/cryst) 20 meq PO DAILY 11/13/22 solifenacin 10 mg tablet 10 mg PO DAILY 11/13/22 fluoxetine 40 mg capsule 80 mg (2 x 40 mg) PO QAM 30 days #60 caps 02/12/23 trazodone 300 mg tablet 300 mg PO QHS PRN insomnia #30 tabs 02/12/23 famotidine 20 mg tablet 20 mg PO DAILY 03/26/24 memantine 5 mg tablet 5 mg PO BID 03/26/24 albuterol sulfate 2.5 mg/3 mL (0.083 %) solution for nebulization 2.5 mg (3 mL) inhalation Q4-6H PRN shortness of breath or wheezing #90 mL 03/30/24 albuterol sulfate 90 mcg/actuation aerosol inhaler (Ventolin HFA) 2 puff inhalation QID PRN shortness of breath or wheezing #8.5 grams 03/30/24 clopidogrel 75 mg tablet (Plavix) 75 mg PO QDAY 07/06/24 oxycodone-acetaminophen 10 mg-325 mg tablet (Percocet) 1 tab PO Q4H PRN pain 07/06/24 aripiprazole 10 mg tablet 10 mg PO DAILY 01/06/25 aspirin 81 mg tablet,delayed release 81 mg PO DAILY 01/06/25 cetirizine 10 mg tablet 10 mg PO DAILY 01/06/25 diazepam 10 mg tablet 10 mg PO DAILY PRN anxiety 01/06/25 donepezil 10 mg tablet 10 mg PO DAILY 01/06/25 methimazole 5 mg tablet 2.5 mg PO .s,t,th,s 01/06/25 pen needle, diabetic 32 gauge x 5/32" (TRUEplus Pen Needle) 01/06/25 ranolazine 1,000 mg tablet,extended release,12 hr 1,000 mg PO BID 01/06/25 rosuvastatin 10 mg tablet 10 mg PO DAILY 01/06/25 tizanidine 4 mg tablet 4 mg PO DAILY 01/06/25 fluticasone fur. 100 mcg-umeclid 62.5 mcg-vilant 25 mcg inhalat.powder (Trelegy Ellipta) 1 ea inhalation DAILY 06/17/25 magnesium oxide 400 mg PO SUTUTHSA 06/17/25 plecanatide 3 mg tablet (Trulance) 3 mg PO DAILY 06/17/25 tirzepatide 7.5 mg/0.5 mL subcutaneous pen injector (Mounjaro) 7.5 mg subcut WEEKLY 06/17/25 pregabalin 200 mg capsule 200 mg PO 2XD 06/18/25 amoxicillin 500 mg-potassium clavulanate 125 mg tablet (Augmentin) 1 tab PO BID #6 tabs 06/21/25 Discharge Plan Discharge Discharge Orders: Discharge Patient (ONCE); Ordered 06/21/25 Ordered By: MELINDA FERNANDO Activity Restrictions/Additional Instructions: Diagnosis: UTI, Chronic Respiratory Failure Diet: Diabetic Activity: as tolerated Medications: [facility] * Augmentin - take twice a day for 3 days, start today Oxygen: 3L continuous during the day, BiPAP at night. [employer] has sent pre- certification to your insurance and will reach out to you regarding delivery of your BiPAP. Being compliant with this device is imperative for your respiratory and mental status. Follow-up with primary care provider. Instructions: Urinary Tract Infection in Women (GEN), BiPAP (GEN), Chronic Respiratory Failure (GEN) Care Plan Goals: Problem: Altered Blood Glucose Level Goal: Maintain blood glucose level Within Normal Limits Instructions: Diet as ordered Diet consult if indicated Monitor accucheck levels Monitor signs/symptoms of altered glucose Problem: Impaired Respiratory Status Goal: Exhibit optimal respiratory function Instructions: Activities as tolerated Apply oxygen as ordered Elevate head of bed Notify MD of increased congestion Patient Disposition: HOME WITH FAMILY CARE Prescriptions: New amoxicillin-pot clavulanate [Augmentin] 500-125 mg tablet 1 tab PO BID Qty: 6 0RF Rx Instructions: Take with food. Start today Continued Premarin 1.25 MG tablet 1.25 mg PO DAILY famotidine 20 mg tablet 20 mg PO DAILY memantine 5 mg tablet 5 mg PO BID albuterol sulfate 2.5 mg /3 mL (0.083 %) solution for nebulization 2.5 mg inhalation Q4-6H PRN (Reason: shortness of breath or wheezing) Qty: 90 0RF albuterol sulfate [Ventolin HFA] 90 mcg/actuation HFA aerosol inhaler 2 puff inhalation QID PRN (Reason: shortness of breath or wheezing) Qty: 8.5 0RF Trulance 3 mg tablet 3 mg PO DAILY Trelegy Ellipta 100-62.5-25 mcg blister with device 1 ea inhalation DAILY Mounjaro 7.5 mg/0.5 mL pen injector 7.5 mg SUBCUT WEEKLY Patient Comments: [NO ORIGINAL SIG] pregabalin 200 mg capsule 200 mg PO 2XD magnesium oxide 400 mg (241.3 mg magnesium) tablet 800 mg PO MOWEFR methimazole 5 mg tablet 5 mg PO .COMPLEX Rx Instructions: Frequency: friday insulin glargine [Lantus Solostar U-100 Insulin] 100 unit/mL (3 mL) insulin pen 50 unit SUBCUT BID insulin lispro [Admelog SoloStar U-100 Insulin] 100 unit/mL Insulin Pen 20 - 30 unit SUBCUT ACHS furosemide 40 mg tablet 40 mg PO DAILY potassium chloride 20 mEq tablet,ER particles/crystals 20 meq PO DAILY solifenacin 10 mg Tablet 10 mg PO DAILY cetirizine 10 mg tablet 10 mg PO DAILY aspirin 81 mg tablet,delayed release (DR/EC) 81 mg PO DAILY aripiprazole 10 mg tablet 10 mg PO DAILY diazepam 10 mg tablet 10 mg PO DAILY PRN (Reason: anxiety) donepezil 10 mg tablet 10 mg PO DAILY (DME) pen needle, diabetic [TRUEplus Pen Needle] 32 gauge x 5/32" needle MISCELLANEOUS Patient Comments: [NO ORIGINAL SIG] ranolazine 1,000 mg tablet extended release 12 hr 1,000 mg PO BID rosuvastatin 10 mg tablet 10 mg PO DAILY tizanidine 4 mg tablet 4 mg PO DAILY methimazole 5 mg tablet 2.5 mg PO .s,t,th,s pantoprazole 40 mg tablet,delayed release (DR/EC) 40 mg PO QDAY losartan 25 mg tablet 25 mg PO QDAY fluoxetine 40 mg capsule 80 mg PO QAM 30 Days Qty: 60 2RF trazodone 300 mg tablet 300 mg PO QHS PRN (Reason: insomnia) Qty: 30 2RF clopidogrel [Plavix] 75 mg tablet 75 mg PO QDAY oxycodone-acetaminophen [Percocet] 10-325 mg tablet 1 tab PO Q4H PRN (Reason: pain) Discontinued doxycycline hyclate 100 mg capsule 100 mg PO 2XD prednisone 20 mg tablet 20 mg PO 2XD doxycycline monohydrate 100 mg capsule 100 mg PO BID Qty: 14 0RF No Action magnesium oxide 400 mg magnesium tablet 400 mg PO SUTUTHSA Did you review [place] IMPORT/EXPORT ANALYST for ALL controlled substances?: No Discussed opioids are addictive and Narcan is available by prescription or from pharmacy.: No Condition: Good
[2025-06-21 10:08] VITALS: BP 179/81; PULSE 72; RESP 18; TEMP 97.3
== END 2025-06-21 10:25 | disposition home or self-care (01) | DRG 689 ==
LOC: MEDSURG B 13:51 → ED 13:51 → MEDSURG B 22:46
PROVIDERS: ADMIT Hospitalist; ATTEND Nurse Practitioner Family